=== PATIENT | male | born 1955 ===

== ENCOUNTER 2024-10-30 11:17 | Outpatient (AMB) | payer MEDICARE, SELFPAY ==
--- OUTSIDE RECORDS SUMMARY | 2024-10-30 11:22 | XMS_ITS | Clinical Summary ---
Author Organization [facility] Address [address] [place] [address] Care Team Providers Care School Lunch Manager Name Role Phone Mimi Mandel MD Primary Care Provider [phone] Allergies No known active allergies Medications Medication Sig Dispensed Refills Start Date End Date Status predniSONE (DELTASONE) tablet 10 mg Take 10 mg by mouth every morning with breakfast. 0 Active fluticasone-vilantero l (BREO ELLIPTA) 100-25 MCG/INH inhaler 1 inhalation. by Inhaled route daily. 0 Active Multiple Vitamin (MULTI-VITAMIN DAILY PO) Take by mouth daily. 0 Active immune globulin, Human, (GAMMAGARD) 30 GM/300ML SOLN infusion Inject into the vein every 21 days. 0 Active albuterol 108 (90 Base) MCG/ACT inhaler Inhale 2 puffs into the lungs every 6 (six) hours as needed for wheezing. 0 Active valACYclovir (VALTREX) 1000 MG tablet Take 1 tablet (1,000 mg total) by mouth 3 (three) times a day. 21 tablet 0 06/17/2023 Active Active Problems Problem Noted Date Diagnosed Date Anemia 12/16/2019 Leukopenia 12/16/2019 Hypogammaglobulinemia 07/30/2018 Vitiligo 06/10/2017 Mild persistent asthma without complication 10/07 Family History Medical History Relation Name Comments Diabetes Father Cancer Sister Diabetes Sister Relation Name Status Comments Father Sister Social History Tobacco Use Types Packs/Day Years Used Date Smoking Tobacco: Former Cigarettes 1 15 Q uit: 1993 Smokeless Tobacco: Never Alcohol Use Standard Drinks/Week Comments Yes 0 (1 standard drink = 0.6 oz pur e alcohol) Sex and Gender Information Value Date Recorded Sex Assigned at Male 08/01/2022 3:50 PM EDT Gender Identity Male 02/06/2023 10:39 AM EDT Sexual Orientation Straight 02/06/2023 10 :39 AM EDT Job Start Date Occupation Industry Not on file Not on file Not on file Last Filed Vital Signs Vital Sign Reading Time Taken Comments Blood Pressure 137/77 07/03/2023 10:02 AM EDT Pulse 70 07/03/2023 10:02 AM EDT Temperature 36.5 C (97.7 F) 07/03/2023 10:02 AM EDT Respiratory Rate 18 02/06/2023 9:59 AM EDT Oxygen Saturation 100% 07/03/2023 10:02 AM EDT Inhaled Oxygen Concentration - - Weight 71.7 kg (158 lb 1.1 oz) 07/03/2023 10:02 AM EDT Height 172.7 cm (5' 8 ) 06/17/2023 9:00 AM EDT Body Mass Index 24.03 06/17/2023 9:00 AM EDT Plan of Treatment Health Maintenance Due Date Last Done Comments Hepatitis C Screening 1955 Depression Screening 1969 BMI Counseling 09/04/1975 Preventative Health Evaluation 09/04/1975 Colon Cancer Screening (Colonoscopy) 2002 Shingrix-Zoster Vaccine (1 of 2) 09/04/2007 Pneumococcal Vaccine (2 of 2 - PCV) 09/19/2017 09/19/2016 Fall Risk Assessment 2022 COVID-19 Vaccine (3 - season) 2023 08/06/2020, 07/15/2020 Influenza Vaccine (#1) 2024 , 04/13/2019, 04/13/2019, Additional history exists DTap / Tdap / Td (2 - Td or Tdap) 07/30/2028 07/30/2018 RSV Adult > 60+ Yrs or (1 - 1-dose 75+ series) 2032 Hepatitis B Vaccines Aged Out No long er eligible based on patient's age to complete this topic RSV Ped < 20 months Aged Out No longe r eligible based on patient's age to complete this topic Care Teams School Lunch Manager Relationship Specialty Start Date End Date Mimi Mandel MD [address] [place] [id number] PCP - General Internal Medicine 01/04/22
--- OUTSIDE RECORDS SUMMARY | 2024-10-30 11:22 | XMS_ITS | Clinical Summary ---
Author Organization [facility] Address [address] [place] [address] Phone Care Team Providers Care Clinical Audiologist Name Role Phone Lv Basurto MD Primary Care Provider [phone] Allergies No known active allergies Medications amitriptyline (ELAVIL) 10 mg tablet Take 1 tablet (10 mg total) by mouth at bedtime. 12/09/19 24 Active fluticasone propion-salmet Kezia (Wixela Inhub) 100-50 mcg/dose diskus inhaler Inhale 1 puff by mouth 2 (two) times a day. Rinse mouth with water after use to reduce aftertaste and incidence of candidiasis. Do not swallow. 60 each 11 03/27/20 24 025 Active tamsulosin (FLOMAX) 0.4 mg 24 hr capsule Take 1 capsule (0.4 mg total) by mouth at bedtime. 03/08/20 24 Active diclofenac (VOLTAREN) 1 % topical gel Apply 2 gram four times daily to affected joint 100 g 06/24/19 25 Active albuterol HFA (PROAIR HFA ; PROVENTIL HFA ; VENTOLIN HFA) 90 mcg/actuation inhaler Inhale 2 puffs by mouth every 4 (four) hours if needed for wheezing. 6.7 g 3 09/26/19 25 026 Active gabapentin (NEURONTIN) 300 mg capsuleIndicat ions:Bilateral hand pain,Post herpetic neuralgia TAKE 1 CAPSULE BY MOUTH EVERYDAY AT BEDTIME 90 capsule 10/27/19 25 Active gabapentin (NEURONTIN) 300 mg capsuleIndicat ions:Bilateral hand pain,Post herpetic neuralgia Take 1 capsule (300 mg total) by mouth at bedtime. 30 each 09/29/19 25 025 Discontinued Active Problems Problem Noted Date Diagnosed Date Bilateral hand pain 10/07/2024 COPD (chronic obstructive pu lmonary disease) ([facility] V24, [facility] V28) 04/04/2024 BPH (benign prostatic hyperplasia) 04/04/2024 Pneumonia of right lower lobe due to infectious organism 04/04/2024 Anemia 12/16/2019 Hypogammaglobulinemia ([facility] V24) 07/30/2018 Vitiligo 06/10/2017 Mild persistent asthma without complication 10/07 Resolved Problems Problem Noted Date Diagnosed Date Resolved Date Acute respiratory failure wi th hypoxia ([facility] V24, [facility] V28) 04/04/2024 04/08/2024 Encounters Date Type Department Care Team Description 10/29/2024 1:15 PM EDT Treatment [facility] [address] [phone] Shelley Donato OT Bilateral hand pain (Primary Dx) 10/27/2024 1:15 PM EDT Treatment [facility] [address] [place] [phone] Shelley Donato OT Bilateral hand pain (Primary Dx) 10/21/2024 1:15 PM EDT Treatment [facility] [address] [phone] Shelley Donato OT Bilateral hand pain (Primary Dx) 10/19/2024 1:15 PM EDT Treatment [facility] [address] [place] [phone] Shelley Donato OT Bilateral hand pain (Primary Dx) 10/14/2024 3:00 PM EDT Treatment [facility] [address] [place] [phone] Shelley Donato, OT Bilateral hand pain (Primary Dx) 10/07/2024 12:30 PM EDT Evaluation [facility] [address] [place] [phone] Shelley Donato, OT Bilateral hand pain; Arthritis pain, hand; Closed nondisplaced fracture of neck of fifth metacarpal bone of right hand, initial encounter 10/07/2024 Plan of Care Documentation [facility] [address] [place] [phone] 09/28/2024 3:05 PM EDT - 09/28/2024 11:59 PM EDT Hospital Encounter [address] [phone] Bilateral hand pain Discharge Disposition: Home or Self Care 09/28/2024 3:05 PM EDT - 09/28/2024 11:59 PM EDT Hospital Encounter [address] [phone] Right shoulder pain, unspecified chronicity Discharge Disposition: Home or Self Care 09/28/2024 3:00 PM EDT Office Visit Adult Medicine [address] [phone] Alexandra Kay, KELLY Bilateral hand pain (Primary Dx); Right shoulder pain, unspecified chronicity; Post herpetic neuralgia; Arthritis pain, hand; Closed nondisplaced fracture of neck of fifth metacarpal bone of right hand, initial encounter 09/25/2024 2:30 PM EDT [facility] [address] [place] [phone] Sarina Mart MD Mild persistent asthma without complication (Primary Dx); Pneumonia of right lower lobe due to infectious organism; Hypogammaglobulinem ia (CMS/HCC V24) from Last 3 Months Immunizations Name Administration Dates Next Due Pfizer SARS-CoV-2 COVID-19, mRNA, LNP-S, preservative free 08/06/2020,07/15/2020 Surgical History Surgery Date Site/Laterality Comments BYPASS GRAFT Left PROCEDURE: CA AMPUTATION TOE METATARSOPHALANGEAL JOINT; COMMENT: 2nd, traumatic Medical History Medical History Date Comments Asthma DX:Asthma Traumatic amputation of one toe ([facility] V24) DX:Traumatic amputation of o ne toe (HCC); COMMENT: left 2nd digit Anemia 07/09/2018 DX:Anemia; COMME NT: Was f/b hematolgy in past ? dx Vitiligo 07/30/2018 DX:Vitiligo Hypogammaglobulinemia ([facility] V24) 07/30/2018 DX:Hypogammaglobulinemia (HCC) Empyema lung ([facility] V24, [facility] V28) DX:Empyema lung (HCC) Family History Medical History Relation Name Comments Other: colon cancer Aunt Diabetes Brother Diabetes Father CAD, CKD, Hyper tension Arthritis Mother Diabetes Sister CAD, CKD, Hyper tension Mental illness Sister Stomach cancer Sister Diabetes Son 1 Diabetes Son 2 Diabetes Son 3 Colon cancer Uncle Relation Name Status Comments Aunt Brother Alive Father (Age 57) Mother Alive Sister Alive Son 1 Son 2 Son 3 Uncle Social History Tobacco Use Types Packs/Day Years Used Date Smoking Tobacco: Former Cigarettes Q uit: 04/08/1993 Smokeless Tobacco: Never Tobacco Cessation:Counseling Given: Not Answered Alcohol Use Standard Drinks/Week Comments Not Currently 0 (1 standard drink = 0.6 oz pur e alcohol) Interpersonal Safety Answer Date Record ed Physical Abuse 04/04/2024 Verbal Abuse 04/04/2024 Sex and Gender Information Value Date Recorded Sex Assigned at Male 04/03/2024 10:14 PM EST Legal Sex Male 2:14 AM EST Gender Identity Male 01/24/2024 8:01 PM EDT Sexual Orientation Straight 04/03/2024 10 :14 PM EST Obstetrics History Last Filed Vital Signs Vital Sign Reading Time Taken Comments Blood Pressure 129/72 09/28/2024 2:43 PM EDT Pulse 86 09/25/2024 2:46 PM EDT Temperature 36.4 C (97.5 F) 09/28/2024 2:43 PM EDT Respiratory Rate 16 09/28/2024 2:43 PM EDT Oxygen Saturation 99% 09/25/2024 2:46 PM EDT Inhaled Oxygen Concentration - - Weight 75.8 kg (167 lb) 09/28/2024 2:43 PM EDT Height 172.7 cm (5' 8 ) 09/28/2024 2:43 PM EDT Body Mass Index 25.39 09/28/2024 2:43 PM EDT Plan of Treatment Upcoming Encounters Date Type Department Care Team (Late st Contact Info) Description 11/02/2024 1:15 PM EDT Treatment [facility] [address] [phone] Shelley Donato, OT 11/05/2024 1:15 PM EDT Treatment [facility] [address] [phone] Shelley Donato, OT 11/09/2024 10:00 AM EDT Office Visit [facility] H[facility] Oncology [address] [place] [phone] Maia Cole MD [address] [place] [address] 01/05/2025 3:30 PM EDT Office Visit Adult Medicine [address] [phone] Lv Basurto MD [address] [place] [phone] 03/29/2025 2:15 PM EST [facility] [address] [phone] Sarina Mart MD [address] [phone] Health Maintenance Due Date Last Done Comments Zoster Vaccines (1 of 2) 09/04/2007 RSV Immunization Adult Patients (1 - Risk 60-74 years 1-dose series) 2017 Pneumococcal Vaccine: 50+ Years (2 of 2 - PCV) 09/19/2017 09/19/2016, 06/19/2010 Abdominal Aortic Aneurysm (AAA) Screen 03/17/2022 Cholesterol Screening (Lipid Panel) 03/17/2022 Colorectal Cancer Screening: Colonoscopy 03/17/2022 Hepatitis C Screening 03/17/2022 Medicare Annual Wellness Visit 03/17/2022 Social Influencers of Health Screening 03/17/2022 COVID-19 Vaccine ( season) 2023 02/28/2021, 08/06/2020, 07/15/2020 Depression Screening 04/08/2024 Influenza Vaccine (#1) 2024 , 12/29/2021, 01/06/2020, Additional history exists Falls Risk Assessment 04/08/2025 04/08/2024 DTaP,Tdap,and Td Vaccines (3 - Td or Tdap) 07/30/2028 07/30/2018, 06/19/2010 HIB Vaccines Aged Out No longer eligi ble based on patient's age to complete this topic HPV Vaccines Aged Out No longer eligi ble based on patient's age to complete this topic Hepatitis A Vaccines Aged Out No long er eligible based on patient's age to complete this topic Hepatitis B Vaccines Aged Out No long er eligible based on patient's age to complete this topic IPV Vaccines Aged Out No longer eligi ble based on patient's age to complete this topic MMR Vaccines Aged Out No longer eligi ble based on patient's age to complete this topic Meningococcal ACWY Vaccine Aged Out N o longer eligible based on patient's age to complete this topic Meningococcal B Vaccine Aged Out No l onger eligible based on patient's age to complete this topic RSV Immunization Patients Under 20 months Aged Out No longer eligible based on patient's age to complete this topic Varicella Vaccines Aged Out No longer eligible based on patient's age to complete this topic Goals Goal Patient Goal Type Associated Problems Recent Progress Patient-Stated? Author <enter goal here> General Yes Shelley Donato OT Note: OT PATIENT GOAL REGAIN FUNCTIONAL USE BOTH HANDS TO RESUME HOUSEWORK RESPONSIBILITIES OT STGS 10 TO 12 VISITS General On track(2024 1:33 PM EDT) No Shelley Donato OT Note: # 1 INCORPORATE POSTURAL AWARENESS AND STRETCHING INTO DAILY REGIME TO REPORTS LESS TINGLING AND PAIN AT PALMS # 2 IMPROVE RIGHT WRIST EXTENSION FROM 40 TO 60 DEGREES WITH GOOD STRENGTH TO WEIGHTBEAR # 3 IMPROVE RIGHT THUMB EXTENSION FROM 45 TO 55 DEGREES UPON REACH # 4 ACHIEVE ALL DIGIT FLEXION WITHIN 1.5 CM OF THE DPC # 5 IMPROVE RIGHT PEDIATRIC AUDIOLOGIST FROM 5 TO AT LEAST 25 POUNDS # 6 IMPROVE LEFT WRIST EXTENSION FROM 30 55 DEGREES WITH GOOD STRENGTH TO WEIGHTBEAR # 7 IMPROVE LEFT THUMB EXTENSION FROM 45 TO 55 DEGREES UPON REACH # 8 ACHIEVE ALL LEFT DIGIT FLEXION WITHIN 2 CM OF THE DPC # 9 IMPROVE LEFT PEDIATRIC AUDIOLOGIST FROM 10 TO AT LEAST 25 POUNDS Procedures Procedure Name Priority Date/Time Associated Diagnosis Comments XR HAND 3+ VIEWS BILAT Routine 09/28/2024 3:22 PM EDT Bilateral hand pain XR SHOULDER 2+ VIEWS RIGHT Routine 09/28/2024 3:22 PM EDT Right shoulder pain, unspecified chronicity from Last 3 Months Results * XR Hand 3+ Views bilat (09/28/2024 3:22 PM EDT) Anatomical Region Laterality Modality Upper Extremities, Hand Bilateral [facility] 09/28/2024 5:52 PM EDT Impressions 09/28/2024 5:57 PM EDT 1. No acute fracture or dislocation of the bilateral hands. 2. Severe osteoarthritic changes of the bilateral hands. 3. Chronic right fifth metacarpal head fracture -------- FINAL REPORT -------- Dictated By: Neymar Miranda Dictated Date: 09/28/2024 17:52 ET Assigned Physician: Neymar Miranda Reviewed and Electronically Signed By: Neymar Miranda Signed Date: 09/28/2024 17:57 ET Workstation ID: [id number] Transcribed By: Self Edit Transcribed Date: 09/28/2024 17:52 ET Narrative 09/28/2024 5:57 PM EDT HISTORY: pain TECHNIQUE: 3 views of the bilateral hands COMPARISON: None FINDINGS: Right: No acute fracture or dislocation. There is chronic fracture at the fifth metacarpal head. There is moderate joint space narrowing at the 2-5th DIP joints with subchondral sclerosis and large osteophytes. No significant soft tissue swelling. Left: No acute fracture or dislocation. There is moderate joint space narrowing at the base of thumb, 2-5th DIP joints with subchondral sclerosis and moderate-sized osteophytes. No significant soft tissue swelling. Procedure Note Neymar Miranda MD - 09/28/2024 HISTORY: pain TECHNIQUE: 3 views of the bilateral hands COMPARISON: None FINDINGS: Right: No acute fracture or dislocation. There is chronic fracture at the fifthmetacarpal head. There is moderate joint space narrowing at the 2-5th DIPjoints with subchondral sclerosis and large osteophytes. No significantsoft tissue swelling. Left: No acute fracture or dislocation. There is moderate joint space narrowingat the base of thumb, 2-5th DIP joints with subchondral sclerosis andmoderate-sized osteophytes. No significant soft tissue swelling. IMPRESSION: 1. No acute fracture or dislocation of the bilateral hands. 2. Severe osteoarthritic changes of the bilateral hands. 3. Chronic right fifth metacarpal head fracture -------- FINAL REPORT -------- Dictated By: Neymar Miranda Dictated Date: 09/28/2024 17:52 ET Assigned Physician: Neymar Miranda Reviewed and Electronically Signed By: Neymar Miranda Signed Date: 09/28/2024 17:57 ET Workstation ID: [id number] Transcribed By: Self Edit Transcribed Date: 09/28/2024 17:52 ET us Alexandra Kay [employer] OPERATOR IMG XR PROCEDURES Final Resul t * XR Shoulder 2+ Views Right (09/28/2024 3:22 PM EDT) Anatomical Region Laterality Modality Upper Extremities, Shoulder Right Radi ographic Imaging 09/28/2024 5:59 PM EDT Impressions 09/28/2024 6:01 PM EDT No acute fracture or dislocation of the right shoulder. -------- FINAL REPORT -------- Dictated By: Neymar Miranda Dictated Date: 09/28/2024 17:59 ET Assigned Physician: Neymar Miranda Reviewed and Electronically Signed By: Neymar Miranda Signed Date: 09/28/2024 18:01 ET Workstation ID: [id number] Transcribed By: Self Edit Transcribed Date: 09/28/2024 17:59 ET Narrative 09/28/2024 6:01 PM EDT HISTORY: pain TECHNIQUE: 4 views of the right shoulder COMPARISON: None FINDINGS: No acute fracture or dislocation is seen. There is no evidence of malalignment. Moderate narrowing of the acromioclavicular joint. Procedure Note Neymar Miranda MD - 09/28/2024 HISTORY: pain TECHNIQUE: 4 views of the right shoulder COMPARISON: None FINDINGS: No acute fracture or dislocation is seen. There is no evidence ofmalalignment. Moderate narrowing of the acromioclavicular joint. IMPRESSION: No acute fracture or dislocation of the right shoulder. 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 Do not modify or discontinue any currently active code status orders. * Full Code - Default Date Activated Date Inactivated Comments 04/04/2024 12:35 AM 04/04/2024 2:51 AM This is o rder is used when code status has not been discussed with the patient, or code status is otherwise unknown/unconfirmed To update the patient's code status, place a code status order. Do not modify or discontinue any currently active code status orders. Care Teams Clinical Audiologist Relationship Specialty Start Date End Date Lv Basurto MD [address] [place] [phone] PCP - General Internal Medicine 01/24/24
--- OUTSIDE RECORDS SUMMARY | 2024-10-30 11:22 | XMS_ITS | Patient Health Record ---
Author Organization [facility] Address [address] [place] [address] Care Team Providers Care Network Development Coordinator Name Role Phone MILADIS SIMMONS Unavailable [phone] Allergies No Known Allergies Reason For Referral No Information Medications Medication SIG (Take, Route, Frequency, Duration) Notes Start Date End Date Status Gabapentin 100 MG 2 capsule Orally twi ce daily; Duration: 30 days 06/18/2023 Active Clotrimazole-Betamethasone 1-0.05 % 1 application Externally Twice a day; Duration: 30 days Active Albuterol Sulfate HFA 108 (90 Base) MCG/ACT INHALE 1 PUFF INTO THE LUNGS EVERY 4 HOURS NEEDED FOR 30 DAYS; Duration: 30 Active valACYclovir HCl 500 MG 1 tablet Orally Once a day Active Ibuprofen 600 MG 1 tablet with food o r milk as needed Orally Three times a day Active Trelegy Ellipta 200-62.5-25 MCG/ACT 1 puff Inhalation Once a day; Duration: 30 days Active Immunizations Vaccine Route Administration Date Status Comme nts Influenza, high dose seasonal IM Intramuscular 05/09/2023 Administered Social History Tobacco Use: Social History Observation Description Date Details (start date - stop date) Former Smoker NA - NA Tobacco Use/Smoking Question Answer Notes Are you a former smoker How long has it been since you last smoked? > 10 years Alcohol Screen (Audit-C) Question Answer Notes Did you have a drink contain ing alcohol in the past year? Yes How often did you have a dri nk containing alcohol in the past year? 2 to 4 times a month (2 points) How many drinks did you have on a typical day when you were drinking in the past year? 1 or 2 drinks (0 point) How often did you have 6 or more drinks on one occasion in the past year? Less than monthly (1 point) Points 3 Interpretation Negative Problems Problem Type SNOMED Code ICD Code Onset Dates Problem Status W/U Status Risk Notes Problem Hyperlipidemia (86756819) Hyperlipidemia, unspecified (E78.5) Active confirmed Problem Vitiligo (67869037) Vitiligo (L80) Active confi rmed Problem Hypothyroidism (50422984) Hypothyroidism, unspecified type (E03.9) Active confirmed Problem Vitamin D deficiency (83702575) Vitamin D deficiency (E55.9) Active confirmed Problem Annual health maintenance examination (45725638) Encounter for annual health examination (Z00.00) Active confirmed Problem Leukopenia (58657034) Leukopenia , unspecified type (D72.819) Active confirmed Problem Osteoarthritis of kn ee (400983268) Primary osteoarthritis of left knee (M17.12) Active confirmed Problem Chronic obstructive asthma co-occurrent with acute exacerbation of asthma (disorder) (90401849467762094) Chronic obstructive asthma (J44.9) Active confirmed Problem Hypogammaglobulinemi a (691346460) Hypogammaglobulinemi a (D80.1) Active confirmed Assessments Encounter Date Diagnosis (ICD Code) Assessment Notes Treatment Notes Treatment Clinical Notes Section Notes 11/28/2023 Patient is here for [facility] Chronic conditions are stable MCV is a [...] software and direct typing Please excuse inadvertent folding machine tender or typing errors, or uncorrected word substitutions Although every attempt has been made by the provider to proofread this document, occasional misspellings and typographical errors may still be present Due to the previous pandemic, and the use of personal protective equipment (PPE) This may decrease voice recognition accuracy Inadvertent folding machine tender errors may occur Plan Of Treatment Pending Test Test Name Order Date 25OH VITAMIN D 07/23/2022 25OH VITAMIN D 05/09/2023 CBC (COMPLETE BLOOD COUNT) 05/09/2023 CBC (COMPLETE BLOOD COUNT) 07/23/2022 COMPREHENSIVE METABOLIC PANEL 07/23/2022 COMPREHENSIVE METABOLIC PANEL 05/09/2023 FERRITIN 11/26/2022 HEMOGLOBIN A1C 07/23/2022 HEMOGLOBIN A1C 05/09/2023 IRON & TIBC 11/26/2022 LIPID PANEL 07/23/2022 LIPID PANEL 05/09/2023 PSA, SCREEN 05/09/2023 TRANSFERRIN 11/26/2022 TSH 07/23/2022 TSH 05/09/2023 URINALYSIS W/REFLEX CULTURE 05/09/2023 Chest 2 Views Frontal and Lat 10/12/2021 Chest 2 Views Frontal and Lat 11/26/2022 COMPLETE URINALYSIS 07/23/2022 Future Test Test Name Order Date 25OH VITAMIN D 11/09/2021 CBC (COMPLETE BLOOD COUNT) WITH DIFF 07/2021 COMPREHENSIVE METABOLIC PANEL 11/09/2021 HEMOGLOBIN A1C 11/09/2021 LIPID PANEL 11/09/2021 TSH WITH REFLEX TO FT4 11/09/2021 URINALYSIS W/REFLEX CULTURE 11/09/2021 Insurance Providers Payer Name Payer Address Payer Phone Subscriber Number Group Number Insured Name Patient Relationship to Insured Coverage Start Date Coverage End Date Medicare Part B J14 [address] [place] [id number] Magdaleno Pritchard Self - patient is the insured 3 Medical (General) History Medical History History ICD Code asthma Surgical History Surgery Date(Month/Year) Lung Repair 2019 Hospitalization History Reason Date(Month/Year) D/C Daniela re: 05/2022 discharged for Lung issues August 2021 pneumonia 2021
--- OUTSIDE RECORDS SUMMARY | 2024-10-30 11:22 | XMS_ITS | Clinical Summary ---
Author Organization [facility] Address [address] [place] [address] Phone Care Team Providers Care Cook Fishing Vessel Name Role Phone Pcp, Unknown Primary Care Provider Unavailabl e Social History Tobacco Use Types Packs/Day Years Used Date Smoking Tobacco: Never Assessed Sex and Gender Information Value Date Recorded Sex Assigned at Not on file Legal Sex Male 2:21 PM EDT Gender Identity Not on file Sexual Orientation Not on file Plan of Treatment Health Maintenance Due Date Last Done Comments LIPID PANEL 1957 DEPRESSION SCREENING 1969 HEPATITIS C SCREENING 09/04/1975 ZOSTER VACCINES (1 of 2) 09/04/2007 PNEUMOCOCCAL VACCINES (50+ years) (2 of 2 - PCV) 09/19/2017 09/19/2016, 06/19/2010 COVID-19 VACCINE ( - 2023-2 5 season) 2023 02/28/2021, 08/06/2020, 07/15/2020 Adult Td,Tdap Booster 07/30/2028 07/30/2018 , 06/19/2010 RSV VACCINE (1 - 1-dose 75+ series) 2032 COLORECTAL CANCER SCREENING Completed HEPATITIS A VACCINES Aged Out No long er eligible based on patient's age to complete this topic HIB VACCINES Aged Out No longer eligi ble based on patient's age to complete this topic MENINGOCOCCAL VACCINES (ACWY) Aged Out No longer eligible based on patient's age to complete this topic MENINGOCOCCAL VACCINES (B) Aged Out N o longer eligible based on patient's age to complete this topic Medical Devices Not on file Insurance [employer] [facility] Care Teams Cook Fishing Vessel Relationship Specialty Start Date End Date Pcp, Unknown PCP - General 01/25/23 Additional Source Comments The information contained in this document represents components of the legal health record. It is not the complete legal health record.[facility]
--- OUTSIDE RECORDS SUMMARY | 2024-10-30 11:22 | XMS_ITS | Clinical Summary ---
Author Organization [facility] Address [address] [place] [address] Care Team Providers Care Air Quality Instrument Specialist Name Role Phone Unavailable Primary Care Provider Unavailabl e Source Comments PLEASE NOTE, if this patient is a minor, it may be UNLAWFUL to discuss sensitive information that is contained in these records (such as FAMILY PLANNING, MENTAL HEALTH or SUBSTANCE ABUSE) with the minor patient's parent or other person without the patient's specific authorization.[facility] Allergies No known active allergies Medications nebulizer accessoriesIndic ations:Mild intermittent asthma without complication ([facility]) Dx:J45.20 1 Device 0 6 Active nebulizer and compressorIndica tions:Mild intermittent asthma without complication ([facility]) Dx:J45.20 1 Each 0 6 Active mometasone-formo terol (DULERA) 100-5 mcg/actuation inhalerIndicatio ns:Asthma-COPD overlap syndrome ([facility]) Inhale 2 Puffs into the lungs 2 (two) times daily Do not exceed 2 puffs twice daily. 1 Inhaler 5 8 Active albuterol sulfate 90 mcg/actuation inhalerIndicatio ns:acute asthma attack Inhale 2 Puffs into the lungs every 4 (four) hours as needed for shortness of breath or wheezing 18 g 11 8 Active ipratropium-albu terol (DUONEB) 0.5 mg-3 mg(2.5 mg base)/3 mL nebulizer solutionIndicati ons:Asthma-COPD overlap syndrome ([facility]) Take 3 mL by nebulization 4 (four) times daily 90 mL 11 8 Active loratadine (CLARITIN) 10 mg tabletIndication s:Seasonal allergies Take 1 Tab by mouth once daily as needed for allergies 30 Tab 3 8 Active carbamide peroxide (DEBROX) 6.5 % otic solutionIndicati ons:Bilateral impacted cerumen Place 5 Drops into both ears 2 (two) times daily 15 mL 8 Active fluticasone-salm eterol (ADVAIR) 250-50 mcg/dose diskus inhalerIndicatio ns:Asthma-COPD overlap syndrome ([facility]) Inhale 1 Puff into the lungs 2 (two) times daily 60 Each 2 8 Active predniSONE (DELTASONE) 20 mg tabletIndication s:Moderate persistent asthma with exacerbation ([facility]),Acute bronchitis, unspecified organism Take 1 Tab by mouth once daily 4 Tab 8 Active azithromycin (ZITHROMAX Z-SERENA) 250 mg tabletIndication s:Moderate persistent asthma with exacerbation ([facility]),Acute bronchitis, unspecified organism Take 2 today then 1 daily for 4 days dispense 6 tablets 6 Tab 8 Active Active Problems Problem Noted Date Diagnosed Date Vitiligo 06/10/2017 Urine frequency 06/10/2017 Hematologic disorder. Follow s with hemat. unclear dx. no treatment just observation 02/22/2016 Bronchitis, not specified as acute or chronic History of smoking 10-25 pack years 02/22/2016 Mild persistent asthma without complication ([facility]) 10/26/2015 Resolved Problems Problem Noted Date Diagnosed Date Resolved Date Asthma-COPD overlap syndrome ([facility]) 6 10/26/2015 Immunizations Immunization Administration Dates Next Due Flu, Preservative Free 06/10/2017 PNEUMOCOCCAL POLYSACCHARIDE PPV23 (Pneumovax 23) 09/19/2016 Family History Medical History Relation Name Comments Diabetes Daughter Diabetes Father Heart Problems Father Hypertension Father Kidney disease Father Hypertension Mother Cancer Other cousin colon Cancer Paternal Aunt colon ca in ol d age Diabetes Sister Heart Problems Sister Hypertension Sister Kidney disease Sister Diabetes Son 1 Hypertension Son 2 Relation Name Status Comments Brother Alive Daughter Alive Father Mother Alive Other cousin Alive Paternal Aunt Alive Sister Alive Son 1 Alive Son 2 Alive Social History Tobacco Use Types Packs/Day Years Used Date Smoking Tobacco: Never Smokeless Tobacco: Never Alcohol Use Standard Drinks/Week Comments No 0 (1 standard drink = 0.6 oz pur e alcohol) Social Connections Answer Date Recorded Social Connections and Isolation 0 11/30/2018 Financial Resource Strain Answer Date R ecorded Financial Resource Strain 0 2018 Stress Answer Date Recorded Stress 0 11/30/2018 Physical Activity Answer Date Recorded Physical Activity 0 11/30/2018 Food Insecurity Answer Date Recorded Food 0 11/30/2018 Transportation Needs Answer Date Record ed Transportation 0 11/30/2018 Housing Stability Answer Date Recorded Housing 0 11/30/2018 Safety and Environment Answer Date Gerald rded Safety 0 11/30/2018 Utilities Answer Date Recorded Utilities 0 11/30/2018 Employment Answer Date Recorded Employment 0 11/30/2018 Sex and Gender Information Value Date Recorded Sex Assigned at Male 05/14/2017 8:01 AM PST Legal Sex Male 7:37 AM PDT Gender Identity Male 05/14/2017 8:01 AM PST Sexual Orientation Straight 06/10/2017 6: 17 AM PST Last Filed Vital Signs Vital Sign Reading Time Taken Comments Blood Pressure 147/78 02/10/2018 10:27 AM EST Pulse 99 02/10/2018 10:27 AM EST Temperature 37.2 C (99 F) 02/10/2018 10:27 AM EST Respiratory Rate 20 02/10/2018 10:27 AM EST Oxygen Saturation 95% 02/10/2018 10:27 AM EST Inhaled Oxygen Concentration - - Weight 86.2 kg (190 lb) 06/10/2017 9:14 AM EST Height 174 cm (5' 8.5 ) 02/22/2016 3:06 PM EST Body Mass Index 28.47 02/22/2016 3:06 PM EST Plan of Treatment Not on file Insurance [facility]
[2024-10-30 11:23] VITALS: BP 131/77; PULSE 94; RESP 18; O2SAT 99; BMI 24.4
--- NOTE | 2024-10-30 11:23 | MHC.OFFVIS ---
Vital Signs 10/30/24 11:23 Height 5 ft 9 in Weight 165 lb BMI 24.4 BP 131/77 Blood Pressure Location Lt brachial Position Sitting Respiration 18 Pulse 94 Pulse Source Pulse Oximeter Pulse Oximetry (%) 99 Oxygen Delivery Method Room Air Intake Visit Reasons: Bilateral hand pain Online Marketing Director Required: Yes Online Marketing Director Name: family Allergies No Known Allergies Allergy (Verified 10/30/24 11:22) HPI Comments Details: The patient is a 69-year-old male presenting with bilateral hand pain. The pain began more than a month ago and is described as stabbing, tingling in nature, affecting all fingers and preventing the patient from closing his hands fully. The pain is persistent throughout the day and night, with increased severity at night, disrupting sleep. Denies neck pain. Despite physical and occupational therapy, the pain persists, and previous medications such as gabapentin and amitriptyline have not provided relief. Patient tried wrist bracing at night but the pain was worse. The patient has been advised to restart amitriptyline and is currently taking gabapentin 300 mg at night. There is a family history of diabetes mellitus, although the patient denies having diabetes himself. The patient also has a long-standing history of vitiligo, primarily affecting the hands. - Onset: More than a month ago - Quality: Stabbing pain - Location: Bilateral hands, affecting all fingers - Exacerbating factors: Nighttime, leading to sleep disruption - Relieving factors: None identified - Interference: Difficulty in closing hands, opening cans or bottles - Affect: Pain disrupts sleep and daily activities - Analgesia: Currently taking gabapentin 300 mg at night; previously tried amitriptyline - Adverse Effects: None reported - Activities of Daily Living: Difficulty with hand functions such as opening cans or bottles - Aberrant Drug Related Behaviors: None reported Review of Systems Const Details: - Musculoskeletal: Reports bilateral hand pain - Neurological: Endorses tingling - Dermatological: Reports long-standing vitiligo Physical Exam Exam Exam: General: awake, alert, oriented. Answers questions appropriately. Fully engaged in examination. Skin: warm, dry, intact . Vitiligo. HEENT: Normocephalic. Hearing intact. Cardiac: External chest normal in appearance. Respiratory: No cough, audible wheezing or stridor. Abdomen: without gross distension. MS: Bilateral hands: Swelling that limits the ability to close the hands. Vitiligo to both hands. Tenderness over bilateral wrists. Neurological: Oriented to person, place, time and situation. Thought process intact. No gait abnormalities appreciated. Psychiatric: Appropriate mood and affect. Good judgment and insight. Vital Signs: Last Vital Signs Pulse 94 10/30/24 11:23 Resp 18 10/30/24 11:23 BP 131/77 10/30/24 11:23 Pulse Ox 99 10/30/24 11:23 Oxygen Delivery Method Room Air 10/30/24 11:23 BMI result Body Mass Index 24.4 Assessment & Plan Assessment & Plan (1) Left wrist pain: Code(s): M25.532 - Pain in left wrist Category: Medical (2) Right wrist pain: Code(s): M25.531 - Pain in right wrist Category: Medical (3) Paresthesia of both hands: Code(s): R20.2 - Paresthesia of skin Category: Medical Plan The plan includes ordering a nerve conduction study to confirm the suspected diagnosis of carpal tunnel syndrome. A short course of prednisone is prescribed to reduce swelling and alleviate symptoms. If the prednisone does not provide relief, alternative medications such as Lyrica or duloxetine may be considered. The patient is advised against using additional anti-inflammatory medications while on prednisone to avoid gastrointestinal upset. Follow-up is planned after the nerve conduction study to reassess the condition and adjust the treatment plan as necessary. Patient was informed and verbally consented to the use of an ambient scribe for clinic note documentation during this visit. Orders: Orders NE electromyogram (EMG) Today M25.531 - Pain in right wrist, M25.532 - Pain in left wrist, R20.2 - Paresthesia of skin NE nerve conduction velocity Today M25.531 - Pain in right wrist, M25.532 - Pain in left wrist, R20.2 - Paresthesia of skin Medications: New prednisone Take with food. Take in the morning. 40 mg (2 x 20 mg) PO DAILY 10 tabs 0RF Coding Level of Care Code New Pt Level 4 (76884) Complex EM visit Add On G2211 Diagnoses Left wrist pain M25.532 Right wrist pain M25.531 Paresthesia of both hands R20.2
== END 2024-10-30 12:03 | disposition home or self-care (01) ==
LOC: HO.PMC 11:18
PROVIDERS: PCP Nurse Practitioner Family; Referring Provider Nurse Practitioner Family; Visit Provider Registered Nurse Emergency
DX: M25.532 Pain in left wrist (principal); M25.531 Pain in right wrist; R20.2 Paresthesia of skin
CPT/HCPCS: 99204; G2211

== ENCOUNTER → 2024-10-30 | Outpatient (BNVA) | payer MEDICARE, SELFPAY | PROVIDERS: PCP Nurse Practitioner Family; Referring Provider Nurse Practitioner Family; Visit Provider Registered Nurse Emergency | DX: M25.532 Pain in left wrist (principal); M25.531 Pain in right wrist; R20.2 Paresthesia of skin | CPT/HCPCS: 99202 ==

== ENCOUNTER 2024-11-04 08:37 | Outpatient (REF) | payer MEDICARE, SELFPAY ==
--- OUTSIDE RECORDS SUMMARY | 2024-11-02 13:15 | XMS_ITS | Encounter Summary ---
Author Organization [place] [address] Care Team Providers Care C4 Planner Name Role Phone Lv Basurto MD Primary Care Provider [phone] Reason for Visit * Therapy (Routine) - Authorized Specialty Diagnoses / Procedures Referred By Farhad locke Referred To Contact Occupational Therapy Diagnoses Bilateral hand pain Arthritis pain, hand Closed nondisplaced fracture of neck of fifth metacarpal bone of right hand, initial encounter Alexandra Kay, DIRECTOR SECURITY RISK MANAGEMENT [address] [place] [address] Phone: tel: fax: Referral ID Status Reason Start Date Expiration Date Visits Requested Visits Authorized [id number] Authorized Consult and Treat 09/29/2024 09/29/2025 20 20 Encounter Details Date Type Department Care Team (Late st Contact Info) Description 11/02/2024 1:15 PM EDT Treatment [facility] Occupational Therapy [address] [place] [phone] Shelley Donato, OT Bilateral hand pain (Primary Dx) Social History Tobacco Use Types Packs/Day Years Used Date Smoking Tobacco: Former Cigarettes Q uit: 04/08/1993 Smokeless Tobacco: Never Alcohol Use Standard Drinks/Week Comments Not Currently [...] Orientation Straight 04/03/2024 10 :14 PM EST documented as of this encounter Progress Notes * Shelley Donato, OT - 11/02/2024 1:15 PM EDT Occupational Therapy Occupational Therapy Treatment Patient Name: Magdaleno Sidhu Today's Date: 11/02/2024 Subjective Subjective: BETTER VISIT # 7 BILATERAL HAND PAIN Problem List Patient Active Problem List Diagnosis Anemia Hypogammaglobulinemia ([facility] V24) Mild persistent asthma without complication Vitiligo COPD (chronic obstructive pulmonary disease) ([facility] V24, [facility] V28) BPH (benign prostatic hyperplasia) Pneumonia of right lower lobe due to infectious organism Bilateral hand pain Pain: Pain Assessment Pain Assessment: 0-10 Pain Score: 3 Pain Type: (CRAMPING PRESSURE BOTH HANDS) Objective General Visit Information: General Observation/Findings/Presence Chart Reviewed: Yes Extremity Assessments: Modalities: Ultrasound Ultrasound Location: BOTH DORSAL WRISTS IN COMPOSITE EXTENSION STRETCH Ultrasound Parameters: .4 WCM AT 50 PERCENT PULSED X 7.5 MINS EACH Procedure: Therapeutic Exercise Therapeutic Exercise Activity 1: FLUIDOTHERAPY RIGHT FOR ROM AND STRETCHING X 10 MINS, NERVE GLIDES, FLUIDOTHERAPY LEFT WITH A SOFT BALL FOR CONTRACT RELAX DIGIT FLEXION X 10 MINS, U/S, DRUJ DISTRACTION BOTH WRISTS FOLLOWED BY PROM DIGITS FLEXION, NERVE GLIDES Splinting and Casting: Treatment: SEE ABOVE ADL/IADL Assessment: Assessment/Plan OT Assessment Comments: IMPROVED AROM LEFT DIGIT FLEXION Plan OT Plan: ULTRASOUND AND THERAPEUTIC EXERCISE OT Frequency : (1 TO 2 TIMES A WEEK) Duration: (VISIT # 7) Goals: Goals Addressed This Visit's Progress OT STGS 10 TO 12 VISITS On track # 1 INCORPORATE POSTURAL AWARENESS AND STRETCHING INTO DAILY REGIME TO REPORTS LESS TINGLING AND PAIN AT PALMS # 2 IMPROVE RIGHT WRIST EXTENSION FROM 40 TO 60 DEGREES WITH GOOD STRENGTH TO WEIGHTBEAR # 3 IMPROVE RIGHT THUMB EXTENSION FROM 45 TO 55 DEGREES UPON REACH # 4 ACHIEVE ALL DIGIT FLEXION WITHIN 1.5 CM OF THE DPC # 5 IMPROVE RIGHT VEGETABLE WASHING MACHINE OPERATOR FROM 5 TO AT LEAST 25 POUNDS # 6 IMPROVE LEFT WRIST EXTENSION FROM 30 55 DEGREES WITH GOOD STRENGTH TO WEIGHTBEAR # 7 IMPROVE LEFT THUMB EXTENSION FROM 45 TO 55 DEGREES UPON REACH # 8 ACHIEVE ALL LEFT DIGIT FLEXION WITHIN 2 CM OF THE DPC # 9 IMPROVE LEFT VEGETABLE WASHING MACHINE OPERATOR FROM 10 TO AT LEAST 25 POUNDS documented in this encounter Plan of Treatment Upcoming Encounters Date Type Department Care Team (Late st Contact Info) Description 11/05/2024 1:15 PM EDT Treatment [facility] Occupational Therapy [address] [phone] Shelley Donato OT 11/09/2024 10:00 AM EDT Office Visit [facility] Hematology Oncology [address] [place] [phone] Maia Cole MD [address] [place] [address] 01/05/2025 3:30 PM EDT Office Visit Adult Medicine [facility] [address] [place] [phone] Lv Basurto MD [address] [place] [phone] 03/29/2025 2:15 PM EST [facility] [address] [place] [phone] Sarina Mart MD [address] [phone] documented as of this encounter Goals Goal Patient Goal Type Associated Problems Recent Progress Patient-Stated? Author <enter goal here> General Yes Shelley Donato OT Note: OT PATIENT GOAL REGAIN FUNCTIONAL USE BOTH HANDS TO RESUME HOUSEWORK RESPONSIBILITIES OT STGS 10 TO 12 VISITS General On track(2024 1:26 PM EDT) No Donato, Shelley A, OT Note: # 1 INCORPORATE POSTURAL AWARENESS [...] OF THE DPC # 5 IMPROVE RIGHT VEGETABLE WASHING MACHINE OPERATOR FROM 5 TO AT LEAST 25 POUNDS # 6 IMPROVE LEFT WRIST EXTENSION FROM 30 55 DEGREES WITH GOOD STRENGTH TO WEIGHTBEAR # 7 IMPROVE LEFT THUMB EXTENSION FROM 45 TO 55 DEGREES UPON REACH # 8 ACHIEVE ALL LEFT DIGIT FLEXION WITHIN 2 CM OF THE DPC # 9 IMPROVE LEFT VEGETABLE WASHING MACHINE OPERATOR FROM 10 TO AT LEAST 25 POUNDS documented as of this encounter Visit Diagnoses Diagnosis Bilateral hand pain- Primary documented in this encounter Care Teams C4 Planner Relationship Specialty Start Date End Date Lv Basurto MD [address] [place] [phone] PCP - General Internal Medicine 01/24/24 documented as of this encounter
--- NOTE | 2024-11-04 08:40 | EMG_ITS ---
Chief complaint: 2 months of severe wrist pain and numbness in fingertips. Unable to fully flex 3rd and 4th digits. Noted atrophy of right FDI. Flat right thenar eminence. Reason for referral: Evaluate for Carpal Tunnel Syndrome Referred by: Ila Krueger NP Procedure done: Bilateral upper extremities NCS/EMG Precautions and/or limitations: None The limb temperature was monitored continuously and remained between 32-36 degrees C during the performance of the NCS. Ulnar motor NCS was performed with moderate elbow flexion between 70-90 degrees, with across-elbow distance of 10 cm. Nerve Conduction Studies Anti Sensory Summary Table ?Stim Site NR Onset (ms) Norm Onset (ms) Peak (ms) Norm Peak (ms) O-P Amp (?V) Norm O-P Amp Site1 Site2 Delta-0 (ms) Dist (cm) Robert (m/s) Norm Robert (m/s) Left Median Anti Sensory (2nd Digit) Wrist ? 2.7 3.8 <3.6 13.0 >10 Wrist 2nd Digit 2.7 14.0 52 Right Median Anti Sensory (2nd Digit) Wrist ? 3.3 4.7 <3.6 11.5 >10 Wrist 2nd Digit 3.3 14.0 42 Elbow ? 4.4 6.0 56.1 Elbow Wrist 1.1 0.0 >48 Right Radial Anti Sensory (Thumb) Forearm ? 1.6 2.1 <3.1 17.5 Forearm Thumb 1.6 0.0 Left Ulnar Anti Sensory (5th Digit) Wrist ? 3.0 3.7 <3.7 6.0 >15.0 Wrist 5th Digit 3.0 14.0 47 Right Ulnar Anti Sensory (5th Digit) Wrist ? 2.2 3.2 <3.7 4.0 >15.0 Wrist 5th Digit 2.2 14.0 64 Motor Summary Table ?Stim Site NR Onset (ms) Norm Onset (ms) O-P Amp (mV) Norm O-P Amp iAmp (mV) Amp (1st) (%) Site1 Site2 Delta-0 (ms) Dist (cm) Robert (m/s) Norm Robert (m/s) Left Median Motor (Abd Poll Brev) Wrist NR <3.9 >4.5 Elbow Wrist 0.0 >45 Elbow ? 10.0 1.3 1.3 Right Median Motor (Abd Poll Brev) Wrist ? 5.4 <3.9 1.5 >4.5 1.5 100.0 Elbow Wrist 5.2 22.0 42 >45 Elbow ? 10.6 1.0 0.9 66.7 Left Ulnar Motor (Abd Dig Minimi) Wrist ? 2.7 <3.0 6.0 >5 7.2 100.0 B Elbow Wrist 3.9 22.0 56 >45 B Elbow ? 6.6 5.6 6.7 93.3 A Elbow B Elbow 2.7 10.0 37 >45 A Elbow ? 9.3 5.5 6.5 91.7 Right Ulnar Motor (Abd Dig Minimi) Wrist ? 2.6 <3.0 3.8 >5 4.5 100.0 B Elbow Wrist 4.7 22.0 47 >45 B Elbow ? 7.3 3.5 3.9 92.1 A Elbow B Elbow 2.5 10.0 40 >45 A Elbow ? 9.8 3.3 3.8 86.8 EMG ?Side Muscle Nerve Root Ins Act Fibs Psw Amp Dur Poly Recrt Int Pat Comment Right 1stDorInt Ulnar C8-T1 Incr 1+ 1+ Nml Nml 0 Nml Complete Right Biceps Musculocut C5-6 Nml Nml Nml Nml Nml 0 Nml Complete Right Triceps Radial C6-7-8 Nml Nml Nml Nml Nml 0 Nml Complete Right Deltoid Axillary C5-6 Nml Nml Nml Nml Nml 0 Nml Complete Left 1stDorInt Ulnar C8-T1 Nml Nml Nml Nml Nml 0 Nml Complete Left Biceps Musculocut C5-6 Nml Nml Nml Nml Nml 0 Nml Complete Left Triceps Radial C6-7-8 Nml Nml Nml Nml Nml 0 Nml Complete Left Deltoid Axillary C5-6 Nml Nml Nml Nml Nml 0 Nml Complete Right FlexCarpiUln Ulnar C8,T1 Nml Nml Nml Nml Nml 0 Nml Complete Left FlexCarpiUln Ulnar C8,T1 Nml Nml Nml Nml Nml 0 Nml Complete Paraspinal EMG ?Side Muscle Nerve Root Ins Act Fibs Psw Comment Right Cervical Upper Rami Nml Nml Nml Right Cervical Mid Rami Nml Nml Nml Right Cervical Lower Rami Nml Nml Nml Left Cervical Upper Rami Nml Nml Nml Left Cervical Mid Rami Nml Nml Nml Left Cervical Lower Rami Nml Nml Nml FINDINGS: Right median motor nerve showed prolonged distal latency, small amplitude and slow conduction velocity. Right ulnar motor nerve showed normal distal latency, small amplitude and slow conduction velocity across the elbow. Left median motor nerve showed very small/absent response. Left ulnar motor nerve showed normal distal latency, normal amplitude and slow conduction velocity across the elbow. Bilateral median sensory nerves showed prolonged peak latency. Bilateral ulnar sensory nerves showed normal peak latency but small amplitude. All other nerves tested were within normal. Concentric needle EMG was performed in selected muscles of the bilateral upper extremities. Study revealed signs of electric abnormalities as shown in the table above. Right FDI showed increased insertional activity, PSWs and fibrillations. IMPRESSION: 1. This is an abnormal study. 2. There is electrodiagnostic evidence for bilateral ulnar neuropathy at the elbow. 3. There is electrodiagnostic evidence for bilateral moderate-severe median neuropathy at the wrist, consistent with Carpal Tunnel Syndrome. 4. There is no electrodiagnostic evidence for brachial plexopathy or cervical radiculopathy. Thank you for your kind referral. Mery Cohen MD, NOHEMY Board Certified, [place] Board [employer] and Rehabilitation (ABPMR) Board Certified, [place] Board of Electrodiagnostic Medicine (ABEM) CODIN [phone] MTDD
--- OUTSIDE RECORDS SUMMARY | 2024-11-04 08:50 | XMS_ITS | Clinical Summary ---
Author Organization [facility] Address [address] [place] [address] Care Team Providers Care Paper Supervisor Name Role Phone Unavailable Primary Care Provider [...] nebulizer accessoriesIndic ations:Mild intermittent asthma without complication ([facility]) Dx:J45.20 1 Device 0 6 Active nebulizer and compressorIndica tions:Mild intermittent asthma without complication ([facility]) Dx:J45.20 1 Each 0 6 Active mometasone-formo terol (DULERA) 100-5 mcg/actuation inhalerIndicatio ns:Asthma-COPD overlap syndrome ([facility]) Inhale 2 Puffs into the lungs 2 [...] base)/3 mL nebulizer solutionIndicati ons:Asthma-COPD overlap syndrome ([facility]) Take 3 mL by nebulization 4 [...] 250-50 mcg/dose diskus inhalerIndicatio ns:Asthma-COPD overlap syndrome ([facility]) Inhale 1 Puff into the lungs 2 (two) times daily 60 Each 2 8 Active predniSONE (DELTASONE) 20 mg tabletIndication s:Moderate persistent asthma with exacerbation ([facility]),Acute bronchitis, unspecified organism Take 1 Tab by mouth once daily 4 Tab 8 Active azithromycin (ZITHROMAX Z-SERENA) 250 mg tabletIndication s:Moderate persistent asthma with exacerbation ([facility]),Acute bronchitis, unspecified organism Take 2 today then 1 daily for 4 days dispense 6 tablets 6 Tab 8 Active Active Problems Problem Noted Date Diagnosed Date Vitiligo 06/10/2017 Urine frequency 06/10/2017 Hematologic disorder. Follow s with hemat. unclear dx. no treatment just observation 02/22/2016 Bronchitis, not specified as acute or chronic History of smoking 10-25 pack years 02/22/2016 Mild persistent asthma without complication ([facility]) 10/26/2015 Resolved Problems Problem Noted Date Diagnosed Date Resolved Date Asthma-COPD overlap syndrome ([facility]) 6 10/26/2015 Immunizations Immunization Administration Dates Next [...] Plan of Treatment Not on file Insurance [facility]
--- OUTSIDE RECORDS SUMMARY | 2024-11-04 08:50 | XMS_ITS | Clinical Summary ---
Author Organization [facility] Address [address] [place] [address] Care Team Providers Care Cook Fishing Vessel Name Role Phone Mimi Mandel MD Primary Care Provider [phone] Allergies No known active allergies Medications Medication [...] age to complete this topic Care Teams Cook Fishing Vessel Relationship Specialty Start Date End Date Mimi Mandel MD [address] [place] [phone] PCP - General Internal Medicine 01/04/22
--- OUTSIDE RECORDS SUMMARY | 2024-11-04 08:50 | XMS_ITS | Clinical Summary ---
Author Organization [facility] Address [address] [place] [address] Phone Care Team Providers Care Nurse Practitioner Per Diem Name Role Phone Pcp, Unknown Primary Care [...] Medical Devices Not on file Insurance [employer] [facility] [employer] [facility] [employer] [facility] Care Teams Nurse Practitioner Per Diem Relationship Specialty Start Date End Date Pcp, Unknown PCP - General 01/25/23 Additional Source Comments The information contained in this document represents components of the legal health record. It is not the complete legal health record.[facility]
--- OUTSIDE RECORDS SUMMARY | 2024-11-04 08:50 | XMS_ITS | Patient Health Record ---
Author Organization [facility] Address [address] [place] [address] Care Team Providers Care Industrial Mechanic Name Role Phone MILADIS SIMMONS Unavailable [phone] Allergies No Known Allergies Reason For Referral [...] Status W/U Status Risk Notes Problem Hyperlipidemia (21395207) Hyperlipidemia, unspecified (E78.5) Active confirmed Problem Vitiligo (47270015) Vitiligo (L80) Active confi rmed Problem Hypothyroidism (18248515) Hypothyroidism, unspecified type (E03.9) Active confirmed Problem Vitamin D deficiency (47133591) Vitamin D deficiency (E55.9) Active confirmed Problem Annual health maintenance examination (59458968) Encounter for annual health examination (Z00.00) Active confirmed Problem Leukopenia (37280803) Leukopenia , unspecified type (D72.819) Active confirmed Problem Osteoarthritis of kn ee (016240412) Primary osteoarthritis of left knee (M17.12) Active confirmed Problem Chronic obstructive asthma co-occurrent with acute exacerbation of asthma (disorder) (91664616147424034) Chronic obstructive asthma (J44.9) Active confirmed Problem Hypogammaglobulinemi a (828884730) Hypogammaglobulinemi a (D80.1) Active confirmed Assessments Encounter Date Diagnosis (ICD Code) Assessment Notes Treatment Notes Treatment Clinical Notes Section Notes 11/28/2023 Patient is here for [facility] Chronic conditions are stable MCV is a [...] software and direct typing Please excuse inadvertent senior clinician or typing errors, or uncorrected word substitutions Although every attempt has been made by the provider to proofread this document, occasional misspellings and typographical errors may still be present Due to the previous pandemic, and the use of personal protective equipment (PPE) This may decrease voice recognition accuracy Inadvertent senior clinician errors may occur Plan Of Treatment Pending Test Test Name Order Date 25OH VITAMIN D 05/09/2023 25OH VITAMIN D 07/23/2022 CBC (COMPLETE BLOOD COUNT) 07/23/2022 CBC (COMPLETE BLOOD COUNT) 05/09/2023 COMPREHENSIVE METABOLIC PANEL 05/09/2023 COMPREHENSIVE METABOLIC PANEL 07/23/2022 FERRITIN 11/26/2022 HEMOGLOBIN A1C 05/09/2023 HEMOGLOBIN A1C 07/23/2022 IRON & TIBC 11/26/2022 LIPID PANEL 05/09/2023 LIPID PANEL 07/23/2022 PSA, SCREEN 05/09/2023 TRANSFERRIN 11/26/2022 TSH 05/09/2023 TSH 07/23/2022 URINALYSIS W/REFLEX CULTURE 05/09/2023 Chest 2 Views Frontal and Lat 11/26/2022 Chest 2 Views Frontal and Lat 10/12/2021 COMPLETE URINALYSIS 07/23/2022 Future Test Test Name [...] B J14 [address] [place] [address] [id number] Magdaleno Pritchard Self - patient is the insured 3 Medical (General) History Medical History History ICD Code asthma Surgical History Surgery Date(Month/Year) Lung Repair 2019 Hospitalization History Reason Date(Month/Year) D/C Daniela re: 05/2022 discharged for Lung issues August 2021 pneumonia 2021
== END 2024-11-04 08:38 | disposition home or self-care (01) ==
LOC: HO.NEURO 08:37
PROVIDERS: Visit Provider Registered Nurse Emergency
DX: M25.532 Pain in left wrist (principal); M25.531 Pain in right wrist; R20.2 Paresthesia of skin; R94.131 Abnormal electromyogram [EMG]
CPT/HCPCS: 95886; 95911

== ENCOUNTER → 2024-11-04 08:40 | Outpatient (BNV) | payer MEDICARE, SELFPAY | PROVIDERS: Visit Provider Physical Medicine & Rehabilitation | DX: G56.23 Lesion of ulnar nerve, bilateral upper limbs (principal); G56.03 Carpal tunnel syndrome, bilateral upper limbs | CPT/HCPCS: 95886; 95911 ==

== ENCOUNTER 2024-12-04 12:46 | Outpatient (AMB) | payer MEDICARE, SELFPAY ==
--- NOTE | 2024-12-04 12:50 | MHC.OFFVIS ---
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 Per referring provider, symptoms began over 3 months ago. Pain is described as stabbing, affecting all fingers, preventing him from closing his hands fully. The pain is persistent throughout the day and night, with increased severity at night, disrupting sleep. Has tried prednisone with relief but says this is only a short term prescription. Right greater than left, he would like to discuss surgery. IMPRESSION 11/04/24: 2. There is electrodiagnostic evidence for bilateral ulnar neuropathy at the elbow. 3. 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 Per referring provider, symptoms began over 3 months ago. Numbness is constant, daily, and worse at night. Pain is described as stabbing, affecting all fingers, preventing him from closing his hands fully. The pain is persistent throughout the day and night, with increased severity at night, disrupting sleep. Has tried prednisone with relief but says this is only a short term prescription. Right greater than left, he would like to discuss surgery. IMPRESSION 11/04/24: 2. There is electrodiagnostic evidence for bilateral ulnar neuropathy at the elbow. 3. There is electrodiagnostic evidence for bilateral moderate-severe median neuropathy at the wrist, consistent with Carpal Tunnel Syndrome Review of Systems Const All systems reviewed & are unremarkable except as noted in HPI and below Physical Exam Vital Signs: BMI result Body Mass Index 24.7 Extrem Other: Neuro: Diminished sensation of the tips of all digits of bilateral hands in the office today No thenar or intrinsic wasting. Good APB muscle firing and good finger cross. Vascular: Capillary refill brisk. ROM: Patient is able to get close to making closed fist with bilateral hands, approximately 1-2 cm from the palm with the tips of the digits hands Skin: No lacerations or abrasions noted. General: No ecchymosis. No erythema or evidence of infection. Results Reviewed Results Reviewed: IMPRESSION: 1. This is an abnormal study. 2. There is electrodiagnostic evidence for bilateral ulnar neuropathy at the elbow. 3. There is electrodiagnostic evidence for bilateral moderate-severe median neuropathy at the wrist, consistent with Carpal Tunnel Syndrome. 4. There is no electrodiagnostic evidence for brachial plexopathy or cervical radiculopathy. Thank you for your kind referral. Mery Cohen MD, NOHEMY Assessment & Plan Assessment & Plan (1) Bilateral carpal tunnel syndrome: Code(s): G56.03 - Carpal tunnel syndrome, bilateral upper limbs Category: Medical (2) Cubital tunnel syndrome, bilateral: Code(s): G56.23 - Lesion of ulnar nerve, bilateral upper limbs Category: Medical Plan 1. Right cubital tunnel syndrome 2. Right carpal tunnel syndrome Symptoms constant, daily, worse at night I educated the patient about the condition. I discussed both operative and nonoperative treatment options. The patient would like to proceed with surgery. The risks and benefits of operative treatment were discussed with the patient and the patient wishes to proceed with surgery. These risks include, but are not limited to, risk of damage to blood vessels, nerves, tendons, infection, recurrence, incomplete relief of preoperative symptoms, persistent pain, possible need for further surgery, and the risks associated with regional blocks and/or anesthesia. Patient is also educated on the risk of not getting normal sensation back, as he is experiencing dense numbness preoperatively. Plan is to take the patient to the operating room at some point in the next few weeks for the following procedures: 1. Right cubital tunnel release under general anesthesia 2. Right carpal tunnel release under general anesthesia All of the preoperative paperwork including the consent was discussed today. All of the patient's questions were answered in the clinic today. The patient understands that they will be in contact with our telescope operator to discuss scheduling their procedure. Patient reports that he does have a history of difficulties with asthma as well as a history of pneumothorax, therefore I feel it is best for him to have clearance with his primary care provider prior to anesthesia Patient denies diabetes, blood thinners, asthma, heart issues, kidney issues, or current smoking. 3. Left cubital tunnel syndrome Number for left carpal tunnel syndrome Symptoms constant, daily, worse at night At this time, the patient would like to proceed with operative intervention on the right prior to any intervention of the left Patient is educated that we will need to wait a minimum of 3 months between these 2 procedures due to the need for general anesthesia Patient understands this and is amenable to this plan Coding Level of Care Code New Pt Level 4 (25937) Diagnoses Bilateral carpal tunnel syndrome G56.03 Cubital tunnel syndrome, bilateral G56.23
[2024-12-04 12:52] VITALS: BMI 24.7
--- OUTSIDE RECORDS SUMMARY | 2024-12-04 13:15 | XMS_ITS | Clinical Summary ---
Author Organization [facility] Address [address] [place] [address] Phone Care Team Providers Care Community Service Director Name Role Phone Lv Basurto MD Primary Care Provider [phone] Allergies No known active allergies Medications amitriptyline (ELAVIL) 10 mg tablet Take 1 tablet (10 mg total) by mouth at bedtime. 4 Active fluticasone propion-salmete roL (Wixela Inhub) 100-50 mcg/dose diskus inhaler Inhale 1 puff by mouth 2 (two) times a day. Rinse mouth with water after use to reduce aftertaste and incidence of candidiasis. Do not swallow. 60 each 11 4 03/27/20 25 Active tamsulosin (FLOMAX) 0.4 mg 24 hr capsule Take 1 capsule (0.4 mg total) by mouth at bedtime. 4 Active diclofenac (VOLTAREN) 1 % topical gel Apply 2 gram four times daily to affected joint 100 g 5 Active albuterol HFA (PROAIR HFA ; PROVENTIL HFA ; VENTOLIN HFA) 90 mcg/actuation inhaler Inhale 2 puffs by mouth every 4 (four) hours if needed for wheezing. 6.7 g 3 5 09/26/19 26 Active gabapentin (NEURONTIN) 300 mg capsuleIndicati ons:Bilateral hand pain,Post herpetic neuralgia TAKE 1 CAPSULE BY MOUTH EVERYDAY AT BEDTIME 90 capsule 5 Active Active Problems Problem Noted Date Diagnosed Date Bilateral hand pain 10/07/2024 COPD (chronic obstructive pu lmonary disease) ([facility] V24, [facility] V28) 04/04/2024 BPH (benign prostatic hyperplasia) 04/04/2024 Pneumonia of right lower lobe due to infectious organism 04/04/2024 Anemia 12/16/2019 Hypogammaglobulinemia ([facility] V24) 07/30/2018 Vitiligo 06/10/2017 Mild persistent asthma without complication 10/07 Resolved Problems Problem Noted Date Diagnosed Date Resolved Date Acute respiratory failure wi th hypoxia ([facility] V24, [facility] V28) 04/04/2024 04/08/2024 Encounters Date Type Department Care Team Description 11/09/2024 10:00 AM EDT Office Visit [facility] Hematology Oncology [address] [place] [phone] Maia Cole MD Microcytic anemia (Primary Dx); Hypogammaglobulinem ia ([facility] V24) 11/05/2024 1:15 PM EDT Treatment [facility] Occupational Therapy [address] [phone] Shelley Donato OT Bilateral hand pain (Primary Dx) 11/02/2024 1:15 PM EDT Treatment [facility] Occupational Therapy [address] [place] [phone] Shelley Donato OT Bilateral hand pain (Primary Dx) 10/29/2024 1:15 PM EDT Treatment [facility] Occupational Therapy [address] [phone] Shelley Donato OT Bilateral hand pain (Primary Dx) 10/27/2024 1:15 PM EDT Treatment [facility] Occupational Therapy [address] [phone] Shelley Donato OT Bilateral hand pain (Primary Dx) 10/21/2024 1:15 PM EDT Treatment [facility] Occupational Therapy [address] [phone] Shelley Donato OT Bilateral hand pain (Primary Dx) 10/19/2024 1:15 PM EDT Treatment [facility] Occupational Therapy [address] [phone] Shelley Donato OT Bilateral hand pain (Primary Dx) 10/14/2024 3:00 PM EDT Treatment [facility] Occupational Therapy [address] [phone] Shelley Donato OT Bilateral hand pain (Primary Dx) 10/07/2024 12:30 PM EDT Evaluation [facility] Occupational Therapy [address] [place] [phone] Shelley Donato OT Bilateral hand pain; Arthritis pain, hand; Closed nondisplaced fracture of neck of fifth metacarpal bone of right hand, initial encounter 10/07/2024 Plan of Care Documentation [facility] Occupational Therapy [address] [place] [phone] 09/28/2024 3:05 PM EDT - 09/28/2024 11:59 PM EDT Hospital Encounter [address] [phone] Bilateral hand pain Discharge Disposition: Home or Self Care 09/28/2024 3:05 PM EDT - 09/28/2024 11:59 PM EDT Hospital Encounter [address] [phone] Right shoulder pain, unspecified chronicity Discharge Disposition: Home or Self Care 09/28/2024 3:00 PM EDT Office Visit Adult Medicine [address] [phone] Alexandra Kay, ASSISTANT RESTAURANT GENERAL MANAGER Bilateral hand pain (Primary Dx); Right shoulder pain, unspecified chronicity; Post herpetic neuralgia; Arthritis pain, hand; Closed nondisplaced fracture of neck of fifth metacarpal bone of right hand, initial encounter 09/25/2024 2:30 PM EDT Office Visit Pulmonolgy [address] [place] [phone] Sarina Mart MD Mild persistent asthma without complication (Primary Dx); Pneumonia of right lower lobe due to infectious organism; Hypogammaglobulinem ia ([facility] V24) from Last 3 Months Immunizations Name Administration Dates Next Due Pfizer SARS-CoV-2 COVID-19, mRNA, LNP-S, preservative free 08/06/2020,07/15/2020 Surgical History Surgery Date Site/Laterality Comments BYPASS GRAFT Left PROCEDURE: [place] AMPUTATION TOE METATARSOPHALANGEAL JOINT; COMMENT: 2nd, traumatic Medical History Medical History Date Comments Asthma DX:Asthma Traumatic amputation of one toe ([facility] V24) DX:Traumatic amputation of o ne toe ([facility]); COMMENT: left 2nd digit Anemia 07/09/2018 DX:Anemia; COMME NT: Was f/b hematolgy in past ? dx Vitiligo 07/30/2018 DX:Vitiligo Hypogammaglobulinemia ([facility] V24) 07/30/2018 DX:Hypogammaglobulinemia (HCC) Empyema lung ([facility] V24, [facility] V28) 0 DX:Empyema lung (HCC) Family History Medical History [...] Sign Reading Time Taken Comments Blood Pressure 143/77 11/09/2024 9:56 AM EDT Pulse 92 11/09/2024 9:56 AM EDT Temperature 37 C (98.6 F) 11/09/2024 9:56 AM EDT Respiratory Rate 16 09/28/2024 2:43 PM EDT Oxygen Saturation 97% 11/09/2024 9:56 AM EDT Inhaled Oxygen Concentration - - Weight 77.1 kg (170 lb) 11/09/2024 9:56 AM EDT Height 172.7 cm (5' 8 ) 09/28/2024 2:43 PM EDT Body Mass Index 25.85 09/28/2024 2:43 PM EDT Plan of Treatment Upcoming Encounters Date Type Department Care Team (Late st Contact Info) Description 01/05/2025 3:30 PM EDT Office Visit Adult Medicine [facility] [address] [place] [address] Lv Basurto MD [address] [place] [phone] 03/29/2025 2:15 PM EST Office Visit Pulmonolgy [address] [place] [phone] Sarina Mart MD [address] [place] [phone] Health Maintenance Due Date Last Done Comments [...] Influencers of Health Screening 03/17/2022 COVID-19 Vaccine (4 - 2024-25 season) 2023 02/28/2021, 08/06/2020, 07/15/2020 Depression Screening 04/08/2024 Influenza Vaccine (#1) 2024 2, 12/29/2021, 01/06/2020, Additional history exists Falls Risk [...] Progress Patient-Stated? Author <enter goal here> General On track(2024 2:12 PM EDT) Yes Shelley Donato, OT Note: OT PATIENT GOAL REGAIN FUNCTIONAL USE BOTH HANDS TO RESUME HOUSEWORK RESPONSIBILITIES Procedures Procedure Name Priority Date/Time Associated Diagnosis Comments CBC WITH AUTO DIFFERENTIAL Routine 11/02/2024 10:12 AM EDT Hypogammaglobulinem ia (CMS/HCC V24) Anemia, unspecified type FERRITIN Routine 11/02/2024 10:12 AM EDT Anemia, unspecified IRON AND TIBC Routine 11/02/2024 10:12 AM EDT Anemia, unspecified HAPTOGLOBIN Routine 11/02/2024 10:12 AM EDT Hypogammaglobulinem ia ([facility] V24) Anemia, unspecified type RETICULOCYTE COUNT Routine 11/02/2024 10 :12 AM EDT Hypogammaglobulinem ia ([facility] V24) Anemia, unspecified type HEMOGLOBIN ELECTROPHORESIS Routine 11/02/2024 10:12 AM EDT Hypogammaglobulinem ia ([facility] V24) Anemia, unspecified type CBC AND DIFFERENTIAL Routine 11/02/2024 10:12 AM EDT Hypogammaglobulinem ia ([facility] V24) Anemia, unspecified type XR HAND 3+ VIEWS BILAT Routine 3:22 PM EDT Bilateral hand pain XR SHOULDER 2+ VIEWS RIGHT Routine 09/28/2024 3:22 PM EDT Right shoulder pain, unspecified chronicity from Last 3 Months Results * (ABNORMAL) CBC auto differential (11/02/2024 10:12 AM EDT) [facility] WBC 6.8 4.8 - 10.8 K/mcL LAB HEMETOLOGY METHOD 11/02/2024 12:15 PM EDT [facility] RBC 4.90 4.50 - 5.50 M/mcL LAB HEMETOLOGY METHOD 11/02/2024 12:15 PM EDT [facility] Hemoglobin 11.8(L) 13.5 - 17.5 g/dL LAB HEMETOLOGY METHOD 11/02/2024 12:15 PM EDT [facility] Hematocrit 38.4(L) 42.0 - 54.0 % LAB HEMETOLOGY METHOD 11/02/2024 12:15 PM EDT [facility] MCV 78.9(L) 79.0 - 98.0 FL LAB HEMETOLOGY METHOD 11/02/2024 12:15 PM EDT [facility] MCH 24.2(L) 27.0 - 32.0 pcg LAB HEMETOLOGY METHOD 11/02/2024 12:15 PM EDT [facility] MCHC 30.7(L) 32.0 - 37.0 g/dL LAB HEMETOLOGY METHOD 11/02/2024 12:15 PM EDT [facility] RDW 13.4 11.0 - 15.0 % LAB HEMETOLOGY METHOD 11/02/2024 12:15 PM EDT [facility] Platelets 158 130 - 400 K/mcL LAB HEMETOLOGY METHOD [facility] MPV 10.7 7.0 - 11.0 FL LAB HEMETOLOGY METHOD 11/02/2024 12[facility] NRBC 0.0 <1.0 % LAB HEMETOLOGY METHOD 11/02/2024 12:[facility] NRBC Absolute 0.00 <0.10 K/mcL LAB HEMETOLOGY METHOD 11/02/2024 12:[facility] Neutrophils Relative 80.0 % LAB HEMETOLOGY METHOD 11/02/2024 12:15 PM EDT [facility] Lymphocytes Relative 14.4 % LAB HEMETOLOGY METHOD 11/02/2024 12:15 PM EDT [facility] Monocytes Relative 4.0 % LAB HEMETOLOGY METHOD 11/02/2024 12:15 PM EDT [facility] Eosinophils Relative 0.3 % LAB HEMETOLOGY METHOD 11/02/2024 12:[facility] Basophils Relative 0.1 % LAB HEMETOLOGY METHOD 11/02/2024 12:[facility] Immature Granulocytes Relative 1.2 % LAB HEMETOLOGY METHOD 11/02/2024 12:15 PM EDT [facility] Neutrophils Absolute 5.45 1.50 - 7.00 K/mcL LAB HEMETOLOGY METHOD 11/02/2024 12:15 PM EDT [facility] Lymphocytes Absolute 0.98(L) 1.00 - 5.00 K/mcL LAB HEMETOLOGY METHOD 11/02/2024 12:15 PM EDT [facility] Monocytes Absolute 0.27 0.20 - 1.00 K/mcL LAB HEMETOLOGY METHOD 11/02/2024 12:15 PM EDT [facility] Eosinophils Absolute 0.02 0.00 - 0.50 K/mcL LAB HEMETOLOGY METHOD 11/02/2024 12:15 PM EDT [facility] Basophils Absolute 0.01 0.00 - 0.20 K/mcL LAB HEMETOLOGY METHOD 11/02/2024 12:15 PM EDT [facility] Immature Granulocytes Absolute 0.08(H) 0.00 - 0.03 K/mcL LAB HEMETOLOGY METHOD 11/02/2024 12:15 PM EDT [facility] Blood Venous blood specimen / Unknown Venipuncture / Unknown 11/02/2024 10:12 AM EDT 11/02/2024 11:15 AM EDT us Maia Bebo Cole MD LAB BLOOD ORDERABLES Final R esult [facility] [address] [place] [address], * Hemoglobin electrophoresis (11/02/2024 10:12 AM EDT) Pathologist [facility] Hemoglobin A1 97.6 96.5 - 97.8 % 11/04/2024 12:33 PM EDT [facility] Hemoglobin A2 2.4 2.2 - 3.2 % 11/04/2024 12:33 PM EDT [facility] Hemoglobin F 0.0 <2.0 % 11/04/2024 12:33 PM EDT [facility] Hemoglobin S 0.0 0.0 % 11/04/2024 12:33 PM EDT [facility] Hemoglobin C 0.0 0.0 % 11/04/2024 12:33 PM EDT [facility] Interpretation See Below 11/04/2024 12:33 PM EDT [facility] Comment: No abnormal hemoglobin variants seen on hemoglobin electrophoresis. Test performed at [facility], [address] , [place] [address] Lucy Gifford MD, PhD - Analytical Chemist Blood Venous blood specimen / Unknown Venipuncture / Unknown 11/02/2024 10:12 AM EDT 11/02/2024 11:15 AM EDT us Maia Cole MD LAB BLOOD ORDERABLES Final R esult [facility] [address] [place] [address] * Iron and TIBC (11/02/2024 10:12 AM EDT) Iron 93 50 - 160 mcg/dL LAB CHEMISTRY METHOD 11/02/2024 12:45 PM EDT [facility] TIBC 278 250 - 450 mcg/dL LAB CHEMISTRY METHOD 11/02/2024 12:45 PM EDT [facility] Iron Saturation 33 20 - 50 % LAB CHEMISTRY METHOD 11/02/2024 12:45 PM EDT [facility] Blood Venous blood specimen / Unknown Venipuncture / Unknown 11/02/2024 10:12 AM EDT 11/02/2024 11:14 AM EDT us Maia Cole MD LAB BLOOD ORDERABLES Final R esult [facility] [address] [place] [address], [place] [phone] * (ABNORMAL) Reticulocyte count (11/02/2024 10:12 AM EDT) Retic Ct Abs 0.110(H) 0.030 - 0.090 M/mcL LAB HEMETOLOGY METHOD 11/02/2024 12:15 PM EDT [facility] Retic Ct Pct 2.2(H) 0.7 - 1.7 % LAB HEMETOLOGY METHOD 11/02/2024 12:15 PM EDT [facility] Immature Retic Fract 17.5(H) 2.3 - 15.9 % LAB HEMETOLOGY METHOD 11/02/2024 12:15 PM EDT [facility] Reticulocyte Hemoglobin 25.9(L) >29.0 pcg LAB HEMETOLOGY METHOD 11/02/2024 12:15 PM EDT [facility] Blood Venous blood specimen / Unknown Venipuncture / Unknown 11/02/2024 10:12 AM EDT 11/02/2024 11:15 AM EDT us Maia Cole MD LAB BLOOD ORDERABLES Final R esult [facility] [address] [place] [address], [place] [phone] * Haptoglobin (11/02/2024 10:12 AM EDT) Pathologist [facility] Haptoglobin 80 16 - 200 mg/dL LAB CHEMISTRY METHOD 11/02/2024 12:29 PM EDT [facility] Blood Venous blood specimen / Unknown Venipuncture / Unknown 11/02/2024 10:12 AM EDT 11/02/2024 11:14 AM EDT us Maia Cole MD LAB BLOOD ORDERABLES Final R esult [facility] [address] [place] [address], * Ferritin (11/02/2024 10:12 AM EDT) Ferritin 38 26 - 388 ng/mL LAB CHEMISTRY METHOD 11/02/2024 12:29 PM EDT [facility] Blood Venous blood specimen / Unknown Venipuncture / Unknown 11/02/2024 10:12 AM EDT 11/02/2024 11:14 AM EDT Maia Cole MD LAB BLOOD ORDERABLES Final R esult Performing Organization Address [facility] Co de Phone Number [facility] [address] [place] [address], * XR Hand 3+ Views bilat (09/28/2024 3:22 PM EDT) Anatomical Region Laterality Modality Upper Extremities, Hand Bilateral Radiogra phic Imaging 09/28/2024 5:52 PM EDT Impressions 09/28/2024 [...] Signed Date: 09/28/2024 17:57 ET Workstation ID: [id number] Transcribed By: Self Edit Transcribed Date: 09/28/2024 [...] Signed Date: 09/28/2024 17:57 ET Workstation ID: [id number] Transcribed By: Self Edit Transcribed Date: 09/28/2024 17:52 ET Alexandra Kay ASSISTANT RESTAURANT GENERAL MANAGER IMG XR PROCEDURES Final Resul t * [...] Signed Date: 09/28/2024 18:01 ET Workstation ID: [id number] Transcribed By: Self Edit Transcribed Date: 09/28/2024 [...] Signed Date: 09/28/2024 18:01 ET Workstation ID: [id number] Transcribed By: Self Edit Transcribed Date: 09/28/2024 17:59 ET us Alexandra Kay ASSISTANT RESTAURANT GENERAL MANAGER IMG XR PROCEDURES Final Resul t from Last 3 Months Insurance [employer] MEDICARE Advance Directives Documents on File Type Date Recorded Patient Director Process Engineering Expl anation Health Care Decision (hx) 04/14/2019 [...] currently active code status orders. Care Teams Community Service Director Relationship Specialty Start Date End Date Lv Basurto MD PCP - General Internal Medicine 01/24/24
--- OUTSIDE RECORDS SUMMARY | 2024-12-04 13:15 | XMS_ITS | Clinical Summary ---
Author Organization [facility] Address [address] [place] [address] Care Team Providers Care Strategic Alliances Manager Name Role Phone Mimi Mandel MD Primary Care Provider [phone] Allergies No known active allergies Medications Medication [...] age to complete this topic Care Teams Strategic Alliances Manager Relationship Specialty Start Date End Date Mimi Mandel MD [address] [place] [phone] PCP - General Internal Medicine 01/04/22
--- OUTSIDE RECORDS SUMMARY | 2024-12-04 13:15 | XMS_ITS | Clinical Summary ---
Author Organization [facility] Address [address] [place] [address] Phone Care Team Providers Care Chief Power Dispatcher Name Role Phone Pcp, Unknown Primary Care [...] Medical Devices Not on file Insurance [employer] [facility] Care Teams Chief Power Dispatcher Relationship Specialty Start Date End Date Pcp, Unknown PCP - General 01/25/23 Additional Source Comments The information contained in this document represents components of the legal health record. It is not the complete legal health record.[facility]
--- OUTSIDE RECORDS SUMMARY | 2024-12-04 13:15 | XMS_ITS | Clinical Summary ---
Author Organization [facility] Address [address] [place] [address] Care Team Providers Care Sponge Diver Name Role Phone Unavailable Primary Care Provider [...] nebulizer accessoriesIndic ations:Mild intermittent asthma without complication ([facility]) Dx:J45.20 1 Device 0 6 Active nebulizer and compressorIndica tions:Mild intermittent asthma without complication ([facility]) Dx:J45.20 1 Each 0 6 Active mometasone-formo terol (DULERA) 100-5 mcg/actuation inhalerIndicatio ns:Asthma-COPD overlap syndrome ([facility]) Inhale 2 Puffs into the lungs 2 [...] base)/3 mL nebulizer solutionIndicati ons:Asthma-COPD overlap syndrome ([facility]) Take 3 mL by nebulization 4 (four) [...] 250-50 mcg/dose diskus inhalerIndicatio ns:Asthma-COPD overlap syndrome ([facility]) Inhale 1 Puff into the lungs 2 (two) times daily 60 Each 2 8 Active predniSONE (DELTASONE) 20 mg tabletIndication s:Moderate persistent asthma with exacerbation ([facility]),Acute bronchitis, unspecified organism Take 1 Tab by mouth once daily 4 Tab 8 Active azithromycin (ZITHROMAX Z-SERENA) 250 mg tabletIndication s:Moderate persistent asthma with exacerbation ([facility]),Acute bronchitis, unspecified organism Take 2 today then 1 daily for 4 days dispense 6 tablets 6 Tab 8 Active Active Problems Problem Noted Date Diagnosed Date Vitiligo 06/10/2017 Urine frequency 06/10/2017 Hematologic disorder. Follow s with hemat. unclear dx. no treatment just observation 02/22/2016 Bronchitis, not specified as acute or chronic History of smoking 10-25 pack years 02/22/2016 Mild persistent asthma without complication ([facility]) 10/26/2015 Resolved Problems Problem Noted Date Diagnosed Date Resolved Date Asthma-COPD overlap syndrome ([facility]) 6 10/26/2015 Immunizations Immunization Administration Dates Next [...] Plan of Treatment Not on file Insurance [facility]
== END 2024-12-04 13:19 | disposition home or self-care (01) ==
LOC: HO.HOS 12:46
DX: G56.03 Carpal tunnel syndrome, bilateral upper limbs (principal); G56.23 Lesion of ulnar nerve, bilateral upper limbs
CPT/HCPCS: 99204

== ENCOUNTER → 2024-12-04 12:46 | Outpatient (BNVA) | payer MEDICARE, SELFPAY | DX: G56.03 Carpal tunnel syndrome, bilateral upper limbs (principal); G56.23 Lesion of ulnar nerve, bilateral upper limbs | CPT/HCPCS: 99202 ==

== ENCOUNTER 2025-01-20 14:13 | Outpatient (AMB) | payer MEDICARE, SELFPAY ==
--- OUTSIDE RECORDS SUMMARY | 2023-11-28 10:15 | XMS_ITS ---
Author Organization [facility] [address] Address [address] [place] [address] Care Team Providers Care Plater Barrel Name Role Phone MILADIS SIMMONS Unavailable [phone] REASON FOR VISIT labs Medications Medication SIG (Take, Route, Frequency, Duration) Notes Start Date End Date Status Clotrimazole-Betamethasone 1-0.05 % 1 application Externally Twice a day; Duration: 30 days Active Trelegy Ellipta 200-62.5-25 MCG/ACT 1 puff Inhalation Once a day; Duration: 30 days Active Encounters Encounter Location Date Provider Diagnosis [facility] [address] [place] [id number] 11/28/2023 MILADIS SIMMONS Annual physical exam Z00.00 ; Encounter for screening for other disorder Z13.89 ; Encounter for screening for depression Z13.31 ; Chronic obstructive asthma J44.9 ; Hypogammaglobulinemia D80.1 ; Primary osteoarthritis of left knee M17.12 ; Vitiligo L80 ; Hyperlipidemia, unspecified E78.5 ; Pre-diabetes R73.03 and Iron deficiency E61.1 Assessments Encounter Date Diagnosis (ICD Code) Assessment Notes Treatment Notes Treatment Clinical Notes Section Notes 11/28/2023 Annual physical exam (ICD-10 - Z00.00) Patient is here for MAWV Chronic conditions are stable MCV is a little low at 78.6 Iron studies will be obtained including otal iron, TIBC, and ferritn level, Which were low Patient has beenplaced on iron supplementation in the mean time Of note, some information is being carried forward from prior records for informational purposes only and is being cited so that efficiency, safety and quality of the patient's care is not compromised This note was prepared using voice recognition software and direct typing Please excuse inadvertent inspector scales or typing errors, or uncorrected word substitutions Although every attempt has been made by the provider to proofread this document, occasional misspellings and typographical errors may still be present Due to the previous pandemic, and the use of personal protective equipment (PPE) This may decrease voice recognition accuracy Inadvertent inspector scales errors may occur 11/28/2023 Encounter for screen ing for other disorder (ICD-10 - Z13.89) Patient is here for MAWV Chronic conditions are stable MCV is a little low at 78.6 Iron studies will be obtained including otal iron, TIBC, and ferritn level, Which were low Patient has beenplaced on iron supplementation in the mean time Of note, some information is being carried forward from prior records for informational purposes only and is being cited so that efficiency, safety and quality of the patient's care is not compromised This note was prepared using voice recognition software and direct typing Please excuse inadvertent inspector scales or typing errors, or uncorrected word substitutions Although every attempt has been made by the provider to proofread this document, occasional misspellings and typographical errors may still be present Due to the previous pandemic, and the use of personal protective equipment (PPE) This may decrease voice recognition accuracy Inadvertent inspector scales errors may occur 11/28/2023 Encounter for screen ing for depression (ICD-10 - Z13.31) Patient is here for MAWV Chronic conditions are stable MCV is a little low at 78.6 Iron studies will be obtained including otal iron, TIBC, and ferritn level, Which were low Patient has beenplaced on iron supplementation in the mean time Of note, some information is being carried forward from prior records for informational purposes only and is being cited so that efficiency, safety and quality of the patient's care is not compromised This note was prepared using voice recognition software and direct typing Please excuse inadvertent inspector scales or typing errors, or uncorrected word substitutions Although every attempt has been made by the provider to proofread this document, occasional misspellings and typographical errors may still be present Due to the previous pandemic, and the use of personal protective equipment (PPE) This may decrease voice recognition accuracy Inadvertent inspector scales errors may occur 11/28/2023 Chronic obstructive asthma (ICD-10 - J44.9) Patient is here for MAWV Chronic conditions are stable MCV is a little low at 78.6 Iron studies will be obtained including otal iron, TIBC, and ferritn level, Which were low Patient has beenplaced on iron supplementation in the mean time Of note, some information is being carried forward from prior records for informational purposes only and is being cited so that efficiency, safety and quality of the patient's care is not compromised This note was prepared using voice recognition software and direct typing Please excuse inadvertent inspector scales or typing errors, or uncorrected word substitutions Although every attempt has been made by the provider to proofread this document, occasional misspellings and typographical errors may still be present Due to the previous pandemic, and the use of personal protective equipment (PPE) This may decrease voice recognition accuracy Inadvertent inspector scales errors may occur 11/28/2023 Hypogammaglobulinemi a (ICD-10 - D80.1) Patient is here for MAWV Chronic conditions are stable MCV is a little low at 78.6 Iron studies will be obtained including otal iron, TIBC, and ferritn level, Which were low Patient has beenplaced on iron supplementation in the mean time Of note, some information is being carried forward from prior records for informational purposes only and is being cited so that efficiency, safety and quality of the patient's care is not compromised This note was prepared using voice recognition software and direct typing Please excuse inadvertent inspector scales or typing errors, or uncorrected word substitutions Although every attempt has been made by the provider to proofread this document, occasional misspellings and typographical errors may still be present Due to the previous pandemic, and the use of personal protective equipment (PPE) This may decrease voice recognition accuracy Inadvertent inspector scales errors may occur 11/28/2023 Primary osteoarthrit is of left knee (ICD-10 - M17.12) Patient is here for MAWV Chronic conditions are stable MCV is a little low at 78.6 Iron studies will be obtained including otal iron, TIBC, and ferritn level, Which were low Patient has beenplaced on iron supplementation in the mean time Of note, some information is being carried forward from prior records for informational purposes only and is being cited so that efficiency, safety and quality of the patient's care is not compromised This note was prepared using voice recognition software and direct typing Please excuse inadvertent inspector scales or typing errors, or uncorrected word substitutions Although every attempt has been made by the provider to proofread this document, occasional misspellings and typographical errors may still be present Due to the previous pandemic, and the use of personal protective equipment (PPE) This may decrease voice recognition accuracy Inadvertent inspector scales errors may occur 11/28/2023 Vitiligo (ICD-10 - L80) Patient is here for MAWV Chronic conditions are stable MCV is a little low at 78.6 Iron studies will be obtained including otal iron, TIBC, and ferritn level, Which were low Patient has beenplaced on iron supplementation in the mean time Of note, some information is being carried forward from prior records for informational purposes only and is being cited so that efficiency, safety and quality of the patient's care is not compromised This note was prepared using voice recognition software and direct typing Please excuse inadvertent inspector scales or typing errors, or uncorrected word substitutions Although every attempt has been made by the provider to proofread this document, occasional misspellings and typographical errors may still be present Due to the previous pandemic, and the use of personal protective equipment (PPE) This may decrease voice recognition accuracy Inadvertent inspector scales errors may occur 11/28/2023 Hyperlipidemia, unspecified (ICD-10 - E78.5) Patient is here for MAWV Chronic conditions are stable MCV is a little low at 78.6 Iron studies will be obtained including otal iron, TIBC, and ferritn level, Which were low Patient has beenplaced on iron supplementation in the mean time Of note, some information is being carried forward from prior records for informational purposes only and is being cited so that efficiency, safety and quality of the patient's care is not compromised This note was prepared using voice recognition software and direct typing Please excuse inadvertent inspector scales or typing errors, or uncorrected word substitutions Although every attempt has been made by the provider to proofread this document, occasional misspellings and typographical errors may still be present Due to the previous pandemic, and the use of personal protective equipment (PPE) This may decrease voice recognition accuracy Inadvertent inspector scales errors may occur 11/28/2023 Pre-diabetes (ICD-10 - R73.03) Patient is here for MAWV Chronic conditions are stable MCV is a little low at 78.6 Iron studies will be obtained including otal iron, TIBC, and ferritn level, Which were low Patient has beenplaced on iron supplementation in the mean time Of note, some information is being carried forward from prior records for informational purposes only and is being cited so that efficiency, safety and quality of the patient's care is not compromised This note was prepared using voice recognition software and direct typing Please excuse inadvertent inspector scales or typing errors, or uncorrected word substitutions Although every attempt has been made by the provider to proofread this document, occasional misspellings and typographical errors may still be present Due to the previous pandemic, and the use of personal protective equipment (PPE) This may decrease voice recognition accuracy Inadvertent inspector scales errors may occur 11/28/2023 Iron deficiency (ICD -10 - E61.1) Patient is here for [facility] Chronic conditions are stable MCV is a little low at 78.6 Iron studies will be obtained including otal iron, TIBC, and ferritn level, Which were low Patient has beenplaced on iron supplementation in the mean time Of note, some information is being carried forward from prior records for informational purposes only and is being cited so that efficiency, safety and quality of the patient's care is not compromised This note was prepared using voice recognition software and direct typing Please excuse inadvertent inspector scales or typing errors, or uncorrected word substitutions Although every attempt has been made by the provider to proofread this document, occasional misspellings and typographical errors may still be present Due to the previous pandemic, and the use of personal protective equipment (PPE) This may decrease voice recognition accuracy Inadvertent inspector scales errors may occur Plan Of Treatment Medication Medication Name Sig Start Date Stop Date Notes Clotrimazole-Betamethasone 1-0.05 % 1 application Externally Twice a day; Duration: 30 days Trelegy Ellipta 200-62.5-25 MCG/ACT 1 puff Inhalation Once a day; Duration: 30 days Progress Notes * Magdaleno WRAYDOB:1955 (69 yo M)Acc No.[id number]:11/28/2023 Progress Note Patient: Magdaleno RUTHERFORD Provider: Rojelio SIMMONS NP :[id number] A ge:68 Y S ex:Male Date:11/28/2023 Address:[address] [place] [address] Subjective: * Chief Complaints: * 1 . Labs. * HPI: C onstitutional: Patient is here for a Medicare wellness visit. Complete paperwork was reviewed and updated and has been filed and scan. Age appropriate screening measures reviewed Depression screen completed. Alcohol audit screening completed. Obesity screen completed. Cardiovascular risk stratification screen completed. Cognition assessed Fall risk assessed Discussed healthcare proxy. Discussed [place] order for life sustaining treatment, Comprehensive fasting labs reviewed Patient seen and examined. Full past medical history, social history, family history, allergies and current medications were reviewed and updated. Acute Concerns/Problem List: 11/28/2023 Needs updated labs Did have labs in May 2023 with hematology Patient with a past medical history that includes Chronic obstructive asthma, Arthritis, hypogammaglobulinemia, vitiligo 05/23 he had his first IVIG infusion (Gammagard) and will continue to go every [address] Yu @ infusion center Followed by [facility] Dr. Mart breathing is stable Comprehensive labs are reviewed, 10/2022 Cholesterol 121, LDL 68, triglycerides 126, HDL 32 Electrolytes renal function and LFTs are stable CBC is mostly stable MCV is a little low at 78.6 Low iron studies Platelets are 131 Urinalysis unremarkable Hemoglobin A1c of 5.2 TSH of 0.78 Vitamin D of 74 Acute hospitalizations: He was admitted to [facility] on 05/16/22 with acute hypoxemic respiratory failure CT chest was negative for PE, notable for regions of consolidative opacities, centrilobular nodularity and bronchial wall thickening. Considered a dx of mycobacterial or fungal endotracheal infection. Respiratory panel was unremarkable Lactic acid 1.3 Patient received Zosyn in patient and was transitioned to Augmentin 875/125 for 7 days 40 mg of prednisone daily x8 days Discharged 05/21/22 we did comprehensive reviewing of labs and diagnostics as well as hospital notes as well as medication reconciliation [facility] paperwork, back to full duty as of 06/04/2022 - Presented to the hospital with subjective fevers as well as cough congestion shortness of breath and malaise DX acute hypoxic resp failure, cough, shortness of breath Chest x-ray revealing bilateral lower lobe infiltrates consistent with pneumonia Did have leukocytosis with a white count of 15.8, some LFT elevation and ALK phos of 846 Liver ultrasound was unremarkable Respiratory virus panel detected adenovirus Patient admitted was given steroids intravenously as well as albuterol nebulizer treatments and antipyretics Diagnosed with a viral pneumonia Did have some hypoxia and hypoxic respiratory failure He was weaned off of oxygen and did not require any further supplemental oxygen upon discharge Blood cultures were positive for H. influenzae Sent home on cephalosporin Lactic acid was 2 1 admission and has resolved on discharge We did see him in late March 2022 we did reevaluate him with a chest x-ray which showed complete resolution of Previous multifocal pneumonia back in August admission Health Maintenance Cscope: 2 years ago COVID MRNA: x 3 Flu 2022, 05/2023 Pneumovax:2017 Shingrix:No RSV; discussed. * ROS: A ll Other Systems: Review of Systems (ROS) A ll others negative except those mentioned in HPI. * Medical History: Objective: * Vitals: * Examination: G eneral Examination: GENERAL APPEARANCE: i n no acute distress, well developed, well nourished. H EAD: n ormocephalic, atraumatic. E YES: p upils equal, round, reactive to light and accommodation. E ARS: n ormal. O RAL CAVITY: m ucosa moist. T HROAT: c lear. N JALEEL/THYROID: n jaleel supple, full range of motion, no cervical lymphadenopathy. S KIN: n o suspicious lesions, warm and dry. H EART: n o murmurs, regular rate and rhythm, S1, S2 normal. L UNGS: c lear to auscultation bilaterally. A BDOMEN: n ormal, bowel sounds present, soft, nontender, nondistended. E XTREMITIES: n o clubbing, cyanosis, or edema. N EUROLOGIC: n onfocal, motor strength normal upper and lower extremities, sensory exam intact. Assessment: * Assessment: 1. A nnual physical exam - Z00.00 (Primary) 2 . E ncounter for screening for other disorder - Z13.89 3 . E ncounter for screening for depression - Z13.31? 4. C hronic obstructive asthma - J44.9 5 . H ypogammaglobulinemia - D80.1 6 . P rimary osteoarthritis of left knee - M17.12 7 . V itiligo - L80 8 . H yperlipidemia, unspecified - E78.5 ?9. P re-diabetes - R73.03 1 0. I abner deficiency - E61.1 Patient is here for [facility] Chronic conditions are stable MCV is a little low at 78.6 Iron studies will be obtained including otal iron, TIBC, and ferritn level, Which were low Patient has beenplaced on iron supplementation in the mean time Of note, some information is being carried forward from prior records for informational purposes only and is being cited so that efficiency, safety and quality of the patient's care is not compromised This note was prepared using voice recognition software and direct typing Please excuse inadvertent inspector scales or typing errors, or uncorrected word substitutions Although every attempt has been made by the provider to proofread this document, occasional misspellings and typographical errors may still be present Due to the previous pandemic, and the use of personal protective equipment (PPE) This may decrease voice recognition accuracy Inadvertent inspector scales errors may occur. Plan: * Treatment: * Images: Billing Information: * Visit Code: * Procedure Codes: Care Plan Details* * Electronic signature of KATE SIMMONS on 01/20/2025 at 10:30 AM EDT Sign off status: Pending * Provider: Rojelio SIMMONS NP Date: 0 11/28/2023 Generated for Zohreh wray/Samson/eTransmitting on: 1 10:30 AM EDT History and Physical Notes * HPI (History of Present Illness) Category Sub-Category Detail Notes Category Not es Constitutional Patient is here for a Medicare wellness visit. Complete paperwork was reviewed and updated and has been filed and scan. Age appropriate screening measures reviewed Depression screen completed. Alcohol audit screening completed. Obesity screen completed. Cardiovascular risk stratification screen completed. Cognition assessed Fall risk assessed Discussed healthcare proxy. Discussed [place] order for life sustaining treatment, Comprehensive fasting labs reviewed Patient seen and examined. Full past medical history, social history, family history, allergies and current medications were reviewed and updated. Acute Concerns/Problem List: 11/28/2023 Needs updated labs Did have labs in May 2023 with hematology Patient with a past medical history that includes Chronic obstructive asthma, Arthritis, hypogammaglobulinemia, vitiligo 05/23 he had his first IVIG infusion (Gammagard) and will continue to go every [address] Yu @ infusion center Followed by [facility] Dr. Mart breathing is stable Comprehensive labs are reviewed, 10/2022 Cholesterol 121, LDL 68, triglycerides 126, HDL 32 Electrolytes renal function and LFTs are stable CBC is mostly stable MCV is a little low at 78.6 Low iron studies Platelets are 131 Urinalysis unremarkable Hemoglobin A1c of 5.2 TSH of 0.78 Vitamin D of 74 Acute hospitalizations: He was admitted to [facility] on 05/16/22 with acute hypoxemic respiratory failure CT chest was negative for PE, notable for regions of consolidative opacities, centrilobular nodularity and bronchial wall thickening. Considered a dx of mycobacterial or fungal endotracheal infection. Respiratory panel was unremarkable Lactic acid 1.3 Patient received Zosyn in patient and was transitioned to Augmentin 875/125 for 7 days 40 mg of prednisone daily x8 days Discharged 05/21/22 we did comprehensive reviewing of labs and diagnostics as well as hospital notes as well as medication reconciliation [place] paperwork, back to full duty as of 06/04/2022 - Presented to the hospital with subjective fevers as well as cough congestion shortness of breath and malaise DX acute hypoxic resp failure, cough, shortness of breath Chest x-ray revealing bilateral lower lobe infiltrates consistent with pneumonia Did have leukocytosis with a white count of 15.8, some LFT elevation and ALK phos of 846 Liver ultrasound was unremarkable Respiratory virus panel detected adenovirus Patient admitted was given steroids intravenously as well as albuterol nebulizer treatments and antipyretics Diagnosed with a viral pneumonia Did have some hypoxia and hypoxic respiratory failure He was weaned off of oxygen and did not require any further supplemental oxygen upon discharge Blood cultures were positive for H. influenzae Sent home on cephalosporin Lactic acid was 2 1 admission and has resolved on discharge We did see him in late March 2022 we did reevaluate him with a chest x-ray which showed complete resolution of Previous multifocal pneumonia back in August admission Health Maintenance Cscope: 2 years ago COVID MRNA: x 3 Flu 2022, 05/2023 Pneumovax:2017 Shingrix:No RSV; discussed Examination Category Sub-Category Detail Notes Category Not es General Examination GENERAL APPEARANCE: in no ac lumbee distress, well developed, well nourished HEAD: normocephalic, atrau matic EYES: pupils equal, round, reactive to light and accommodation EARS: normal THROAT: clear NECK/THYROID: neck supple, full ra nge of motion, no cervical lymphadenopathy HEART: no murmurs, regular rate and rhythm, S1, S2 normal LUNGS: clear to auscultatio n bilaterally ABDOMEN: normal, bowel sounds present, soft, nontender, nondistended NEUROLOGIC: nonfocal, motor stre ngth normal upper and lower extremities, sensory exam intact SKIN: no suspicious lesion s, warm and dry EXTREMITIES: no clubbing, cyanosi s, or edema ORAL CAVITY: mucosa moist
--- OUTSIDE RECORDS SUMMARY | 2025-01-20 10:00 | XMS_ITS | Encounter Summary ---
Author Organization [place] [address] Care Team Providers Care Balcony Worker Name Role Phone Lv Basurto MD Primary Care Provider [phone] Reason for Visit * Reason Comments Pre-op Exam Right CTS release Encounter Details Date Type Department Care Team (Late st Contact Info) Description 01/20/2025 10:00 AM EDT Consult Adult Medicine [address] [phone] Lv Basurto MD [address] [place] [address] Preop examination (Primary Dx); Chronic obstructive pulmonary disease, unspecified COPD type (CMS/HCC V24, CMS/HCC V28); Carpal tunnel syndrome, unspecified laterality Social History Tobacco Use Types Packs/Day Years Used Date Smoking Tobacco: Former Cigarettes Q uit: 04/08/1993 Smokeless Tobacco: Never Tobacco Cessation:Counseling Given: Not Answered Alcohol Use Standard Drinks/Week Comments Not Currently 0 (1 standard drink = 0.6 oz pur e alcohol) Interpersonal Safety Answer Date Record ed Physical Abuse Unrecognized value 04/04/2024 Verbal Abuse Unrecognized value 04/04/2024 Sex and Gender Information Value Date Recorded Sex Assigned at Male 04/03/2024 10:14 PM EST Legal Sex Male 2:14 AM EST Gender Identity Male 01/24/2024 8:01 PM EDT Sexual Orientation Straight 04/03/2024 10 :14 PM EST documented as of this encounter Last Filed Vital Signs Vital Sign Reading Time Taken Comments Blood Pressure 108/64 01/20/2025 10:03 AM EDT Pulse 78 01/20/2025 10:03 AM EDT Temperature 36.6 C (97.9 F) 01/20/2025 10:03 AM EDT Respiratory Rate 14 01/20/2025 10:03 AM EDT Oxygen Saturation 97% 01/20/2025 10:03 AM EDT Inhaled Oxygen Concentration - - Weight 76.7 kg (169 lb) 01/20/2025 10:03 AM EDT Height 172.7 cm (5' 8 ) 01/20/2025 10:03 AM EDT Body Mass Index 25.7 01/20/2025 10:03 AM EDT documented in this encounter Progress Notes * Lv Basruto MD - 01/20/2025 10:00 AM EDT Please avoid motrin, Advil ,aleve, ibuprofen , naproxen, aspirin x 10 days prior to surgery Please use (take a puff) of the wixela on the day of surgery and physically take your albuterol to the hospital on the day of surgery Please take medications as prescribed the night prior to surgery On the day of surgery please hold all other medications/supplements * Lv Basurto MD - 01/20/2025 10:00 AM EDT Referring MD: Ca Land MD HPI: Mr. Macho Sidhu is a 69 y.o. year old male who is scheduled for Right cubital and carpal tunnel release on 02/04/2025. He is here today for pre-operative consultation. Her functional status is greater than 4 METs as she can walk for 30 minutes w/o chest pain or significant shortness of breath. He has not had problems with anesthesia or bleeding. Patient with copd /asthma pt on wixela pt needing albuterol bid Patient on gabapentin for pain at night Pt on flomax and elavil at night ROS: GENERAL: Negative for malaise, significant weight loss and fever RESPIRATORY: No cough, wheezing or shortness of breath CARDIOVASCULAR: Negative for chest pain, leg swelling and palpitations PAST MEDICAL HISTORY: Patient Active Problem List Diagnosis Date Noted Bilateral hand pain 10/07/2024 COPD (chronic obstructive pulmonary disease) ([facility] V24, [facility] V28) 04/04/2024 BPH (benign prostatic hyperplasia) 04/04/2024 Pneumonia of right lower lobe due to infectious organism 04/04/2024 Anemia 12/16/2019 Hypogammaglobulinemia ([facility] V24) 07/30/2018 Vitiligo 06/10/2017 Mild persistent asthma without complication 10/26/2015 SOCIAL HISTORY: Social History Tobacco Use Smoking status: Former Current packs/day: 0.00 Types: Cigarettes Quit date: 04/08/1993 Years since quittin.8 Smokeless tobacco: Never Substance Use Topics Alcohol use: Not Currently FAMILY HISTORY: Family Status Relation Name Status Mother Alive Father at age 57 Sister Alive Son (Not Specified) Son (Not Specified) Son (Not Specified) Brother Alive Uncle (Not Specified) Aunt (Not Specified) No partnership data on file Family History[1] ACTIVE MEDICATIONS: Medications Taking[2] ALLERGIES: Patient has no known allergies. PHYSICAL EXAM: There were no vitals taken for this visit. There is no height or weight on file to calculate BMI. APPEARANCE: Alert and in no acute distress EYES: PERRLA, conjunctiva and sclera normal HEART: RRR with normal S1 and S2, no murmurs, no gallops, no JVD appreciated LUNG: clear to auscultation bilaterally EXTREMITIES: Extremities warm and well perfused without clubbing, cyanosis, or edema LABS: Lab Results Component Value Date WBC 6.8 01/05/2025 HGB 11.2 (L) 01/05/2025 HCT 36.7 (L) 01/05/2025 MCV 77.1 (L) 01/05/2025 Lab Results Component Value Date NA 141 01/05/2025 K 3.6 01/05/2025 CO2 25 01/05/2025 CL 108 01/05/2025 BUN 16 01/05/2025 No results found for: INR , PTT Testing:acceptable EKG: RRR NSR no st elevation/depression no q waves. ASSESSMENT AND PLAN: 1. Preop examination 2. Chronic obstructive pulmonary disease, unspecified COPD type (CMS/HCC V24, CMS/HCC V28) 3. Carpal tunnel syndrome, unspecified laterality Cardiac - Mr. Macho Sidhu clinical risk factors include none and male is scheduled for a intermediate risk procedure. His functional capacity is estimated to be greater than 4 METs. He is, therefore, estimated to have an acceptablerisk for the proposed procedure. Further cardiac workup is not warra nted. Beta blockade perioperatively is not needed. Pulmonary - His pulmonary risk factors include age > 50. Early ambulation and use of incentive spirometry, when appropriate, are encouraged. Medications - Pt to hold nsaids 10 days prior to surgery. Patient will use his wixela on the day of surgery and physically take his albuterol with him the the hospital Patient will take his pm meds as scheduled the night prior to surgery Patient will be holding all oral medications/supplements on the day of surgery Please do not hesitate to contact me with any questions or concerns. Thank you for the courtesy of this consultation. Lv Basurto MD on 01/19/2025 at 8:15 AM EDT cc: Ca Land MD [1] Family History Problem Relation Name Age of Onset Arthritis Mother Diabetes Father CAD, CKD, Hypertension Diabetes Sister CAD, CKD, Hypertension Stomach cancer Sister Mental illness Sister Diabetes Son Diabetes Son Diabetes Son Diabetes Brother Colon cancer Uncle Other (Other: colon cancer) Aunt [2] No outpatient medications have been marked as taking for the 01/20/25 encounter (Appointment) with Lv Basurto MD. documented in this encounter Plan of Treatment Upcoming Encounters Date Type Department Care Team (Late st Contact Info) Description 03/29/2025 2:15 PM EST Office Visit Pulmonology - [place] [address] [place] [phone] Sarina Mart MD [address] [place] [address] 04/20/2025 11:00 AM EST Office Visit Adult [facility] [address] [place] [address] Lv Basurto MD [address] [place] [address] documented as of this encounter Goals Goal Patient Goal Type Associated Problems Recent Progress Patient-Stated? Author <enter goal here> General On track(2024 2:12 PM EDT) Yes Shelley Donato, OT Note: OT PATIENT GOAL REGAIN FUNCTIONAL USE BOTH HANDS TO RESUME HOUSEWORK RESPONSIBILITIES documented as of this encounter Visit Diagnoses Diagnosis Preop examination- Primary Unspecified pre-operative examination Chronic obstructive pulmonary disease, unspecified COPD type (CMS/HCC V24, CMS/HCC V28) Carpal tunnel syndrome, unspecified laterality documented in this encounter Care Teams Balcony Worker Relationship Specialty Start Date End Date Lv Basurto MD [address] [place] [address] PCP - General Internal Medicine 01/24/24 documented as of this encounter
--- NOTE | 2025-01-20 14:54 | MHC.OFFVIS ---
Vital Signs 01/20/25 15:06 Height 5 ft 9 in Weight 167 lb BMI 24.7 Handedness Right Intake Visit Reasons: PREOP: right cubital/CTR 02/04/25 AR Intake Note: Magdaleno is a 69 year old ambidextrous male, mainly right hand dominant, who presents today in office for a pre operative visit to discuss his right cubital and right carpal tunnel release scheduled for 02/04/[address] Land. Allergies No Known Allergies Allergy (Verified 01/20/25 15:03) HPI HPI PREOP: right cubital/CTR 02/04/25 AR: Details: Magdaleno is a 69 year old ambidextrous male, mainly right hand dominant, who presents today in office for a pre operative visit to discuss his right cubital and right carpal tunnel release scheduled for 02/04/[address] Land. Patient reports no new medical diagnoses or no new medications since last evaluation. No other acute complaints or concerns at this time. [facility] Medical History (Updated 01/21/25 @ 13:23 by Georgette Kulkarni RN) Hx of immunodeficiency History of amputation of toe (1986) BPH (benign prostatic hyperplasia) Asthma Hx of solitary pulmonary nodule Mild persistent asthma in adult without complication Vitiligo Hypogammaglobulinemia History of pneumonia (04/04/24) Anemia COPD (chronic obstructive pulmonary disease) Bilateral hand pain Surgical History (Updated 01/21/25 @ 13:15 by Georgette Kulkarni RN) Hx of colonoscopy History of lung surgery (04/2019) Social History (Updated 01/21/25 @ 13:18 by Georgette Kulkarni RN) Household Members: Spouse Housing: House Are you a primary technical healthcare consultant to a significant other at home: No Do you presently have visiting nurse or other home services: No 75 years or older and lives alone: No Patient Tobacco Use Status: Former Tobacco user Tobacco use type: Cigarette Smoked in Last 30 Days: No Use of substances other than those prescribed or required for medical reasons: No Advance Directives: No Advance Directives Information Provided: Yes Advance Directives on File: No Healthcare Proxy: No Poor oral hygiene: No (some missing teeth) Review of Systems Const All systems reviewed & are unremarkable except as noted in HPI and below Physical Exam Vital Signs: BMI result Body Mass Index 24.7 Extrem Other: Neuro: Diminished sensation of the tips of all digits of bilateral hands in the office today No thenar or intrinsic wasting. Good APB muscle firing and good finger cross. Vascular: Capillary refill brisk. ROM: Patient is able to get close to making closed fist with bilateral hands, approximately 1-2 cm from the palm with the tips of the digits hands Skin: No lacerations or abrasions noted. General: No ecchymosis. No erythema or evidence of infection. Assessment & Plan Assessment & Plan (1) Bilateral carpal tunnel syndrome: Code(s): G56.03 - Carpal tunnel syndrome, bilateral upper limbs Category: Medical (2) Cubital tunnel syndrome, bilateral: Code(s): G56.23 - Lesion of ulnar nerve, bilateral upper limbs Category: Medical Plan 1. Right cubital tunnel syndrome 2. Right carpal tunnel syndrome Symptoms constant, daily, worse at night I educated the patient about the condition. I discussed both operative and nonoperative treatment options. The patient would like to proceed with surgery. The risks and benefits of operative treatment were discussed with the patient and the patient wishes to proceed with surgery. These risks include, but are not limited to, risk of damage to blood vessels, nerves, tendons, infection, recurrence, incomplete relief of preoperative symptoms, persistent pain, possible need for further surgery, and the risks associated with regional blocks and/or anesthesia. Patient is also educated on the risk of not getting normal sensation back, as he is experiencing dense numbness preoperatively. Plan is to take the patient to the operating room at some point in the next few weeks for the following procedures: 1. Right cubital tunnel release under general anesthesia 2. Right carpal tunnel release under general anesthesia All of the preoperative paperwork including the consent was discussed today. All of the patient's questions were answered in the clinic today. The patient understands that they will be in contact with our anime designer to discuss scheduling their procedure. Patient reports that he does have a history of difficulties with asthma as well as a history of pneumothorax, therefore I feel it is best for him to have clearance with his primary care provider prior to anesthesia Patient denies diabetes, blood thinners, asthma, heart issues, kidney issues, or current smoking. 3. Left cubital tunnel syndrome Number for left carpal tunnel syndrome Symptoms constant, daily, worse at night At this time, the patient would like to proceed with operative intervention on the right prior to any intervention of the left Patient is educated that we will need to wait a minimum of 3 months between these 2 procedures due to the need for general anesthesia Patient understands this and is amenable to this plan Coding Level of Care Code Est Pt Level 4 (36875) Diagnoses Bilateral carpal tunnel syndrome G56.03 Cubital tunnel syndrome, bilateral G56.23
[2025-01-20 15:06] VITALS: BMI 24.7
--- OUTSIDE RECORDS SUMMARY | 2025-01-20 18:00 | XMS_ITS | Clinical Summary ---
Author Organization 175 [facility] Address [address] [place] [address] Phone Care Team Providers Care Resolution Analyst Name Role Phone Lv Basurto MD Primary Care Provider [phone] Allergies No known active allergies Medications amitriptyline (ELAVIL) 10 mg tablet Take 1 tablet (10 mg total) by mouth at bedtime. 4 Active fluticasone propion-salmet Kezia (Wixela Inhub) 100-50 [...] to affected joint 100 g 5 Active gabapentin (NEURONTIN) 300 mg capsuleIndicat ions:Bilateral hand pain,Post herpetic neuralgia TAKE 1 CAPSULE BY MOUTH EVERYDAY AT BEDTIME 90 capsule 5 Active albuterol HFA (PROAIR HFA ; PROVENTIL HFA ; VENTOLIN HFA) 90 mcg/actuation inhaler Inhale 2 puffs by mouth every 4 (four) hours if needed for wheezing. 25.5 g 1 5 01/06/20 26 Active albuterol HFA (PROAIR HFA ; PROVENTIL HFA ; VENTOLIN HFA) 90 mcg/actuation inhaler Inhale 2 puffs by mouth every 4 (four) hours if needed for wheezing. 6.7 g 3 5 01/06/20 25 Discontinu ed(Reorder ) Active Problems Problem Noted Date Diagnosed Date Bilateral hand pain 10/07/2024 COPD (chronic obstructive pu lmonary disease) ([facility] V24, [facility] V28) 04/04/2024 BPH (benign prostatic hyperplasia) 04/04/2024 Pneumonia of right lower lobe due to infectious organism 04/04/2024 Anemia 12/16/2019 Hypogammaglobulinemia ([facility] V24) 07/30/2018 Vitiligo 06/10/2017 Mild persistent asthma without complication 10/07 Resolved Problems Problem Noted Date Diagnosed Date Resolved Date Acute respiratory failure wi th hypoxia ([facility] V24, [facility] V28) 04/04/2024 04/08/2024 Encounters Date Type Department Care Team Description 01/20/2025 10:00 AM EDT Consult Adult Medicine [address] [phone] Lv Basurto MD Preop examination (Primary Dx); Chronic obstructive pulmonary disease, unspecified COPD type ([facility] V24, [facility] V28); Carpal tunnel syndrome, unspecified laterality 01/05/2025 3:30 PM EDT Office Visit Adult Medicine [address] [phone] Lv Basurto MD Chronic obstructive pulmonary disease, unspecified COPD type ([facility] V24, [facility] V28) (Primary Dx); Need for prophylactic vaccination and inoculation against influenza; Screening for malignant neoplasm of prostate; Benign prostatic hyperplasia without lower urinary tract symptoms; Screening, anemia, deficiency, iron; Screening for diabetes mellitus 01/05/2025 Results Follow-Up Adult Medicine [address] [place] [phone] Lv Basurto MD 01/05/2025 Results Follow-Up Adult Medicine [facility] [address] [place] [address] Lv Basurto MD 11/09/2024 10:00 AM EDT Office Visit [facility] Hematology Oncology [address] [place] [phone] Maia Cole MD Microcytic anemia (Primary Dx); Hypogammaglobulinemi a ([facility]/HCC V24) 11/05/2024 1:15 PM EDT Treatment [facility] Occupational [facility] [address] [phone] Shelley Donato OT Bilateral hand pain (Primary Dx) 11/02/2024 1:15 PM EDT Treatment [facility] Occupational [facility] [address] [phone] Shelley Donato OT Bilateral hand pain (Primary Dx) 10/29/2024 1:15 PM EDT Treatment [facility] Occupational Therapy [address] [phone] Shelley Donato OT Bilateral hand pain (Primary Dx) 10/27/2024 1:15 PM EDT Treatment [facility] Occupational [facility] [address] [phone] Shelley Donato OT Bilateral hand pain (Primary Dx) 10/21/2024 1:15 PM EDT Treatment [facility] Occupational Therapy [address] [phone] Shelley Donato OT Bilateral hand pain (Primary Dx) from Last 3 Months Immunizations Immunization Administration Dates Next Due Influenza trivalent, 0.5mL (Fluad) 65yo and olde r 01/05/2025 Pfizer SARS-CoV-2 COVID-19, mRNA, LNP-S, preservative free 08/06/2020,07/15/2020 Surgical History Surgery Date Site/Laterality Comments BYPASS GRAFT Left PROCEDURE: NM AMPUTATION TOE METATARSOPHALANGEAL JOINT; COMMENT: 2nd, traumatic Medical History Medical History Date Comments Asthma DX:Asthma Traumatic amputation of one toe ([facility] V24) DX:Traumatic amputation of o ne toe ([facility]); COMMENT: left 2nd digit Anemia 07/09/2018 DX:Anemia; COMME NT: Was f/b hematolgy in past ? dx Vitiligo 07/30/2018 DX:Vitiligo Hypogammaglobulinemia ([facility] V24) 07/30/2018 DX:Hypogammaglobulinemia (HCC) Empyema lung ([facility] V24, [facility] V28) 0 DX:Empyema lung (HCC) Family History [...] Mass Index 25.7 01/20/2025 10:03 AM EDT Plan of Treatment Upcoming Encounters Date Type Department Care Team (Late st Contact Info) Description 03/29/2025 2:15 PM EST Office Visit Pul[place]ology - [place] [address] [employer] [address] [place] [phone] Sarina Mart MD 175 [facility] [address] [place] [address] 04/20/2025 11:00 AM EST Office Visit Adult Medicine [facility] [address] [place], [place] [phone] Lv Basurto MD [address] [place] [phone] Health Maintenance Due Date Last Done Comments Colorectal Cancer Screening: Colonoscopy 1955 RSV Immunization Adult Patients (1 - Risk 50-74 years 1-dose series) 09/04/2007 Zoster Vaccines (1 of 2) 09/04/2007 Pneumococcal Vaccine: 50+ Years (2 of 2 - PCV) 09/19/2017 09/19/2016, 06/19/2010 Abdominal Aortic Aneurysm (AAA) Screen 03/17/2022 Cholesterol Screening (Lipid Panel) 03/17/2022 Hepatitis C Screening 03/17/2022 Medicare Annual Wellness Visit 03/17/2022 Social Influencers of Health Screening 03/17/2022 Depression Screening 04/08/2024 COVID-19 Vaccine ( season) 2024 02/28/2021, 08/06/2020, 07/15/2020 Falls Risk Assessment 04/08/2025 04/08/2024 DTaP,Tdap,and Td Vaccines (3 - Td or Tdap) 07/30/2028 07/30/2018, 06/19/2010 Influenza Vaccine Completed 01/05/2025, , 12/29/2021, Additional history exists HIB Vaccines Aged Out No longer eligi [...] Diagnosis Comments CBC WITH AUTO DIFFERENTIAL Routine 01/05/2025 4:10 PM EDT Screening, anemia, deficiency, iron PROSTATE SPECIFIC ANTIGEN SCREEN Routine 01/05/2025 4:10 PM EDT Screening for malignant neoplasm of prostate Benign prostatic hyperplasia without lower urinary tract symptoms CBC AND DIFFERENTIAL Routine 01/05/2025 4:10 PM EDT Screening, anemia, deficiency, iron BASIC METABOLIC PANEL Routine 01/05/2025 4:10 PM EDT Screening for diabetes mellitus CBC WITH AUTO DIFFERENTIAL Routine 11/02/2024 10:12 AM EDT Hypogammaglobulinem ia (CMS/HCC V24) Anemia, unspecified type FERRITIN Routine 11/02/2024 10:12 AM EDT Anemia, unspecified IRON AND TIBC Routine 11/02/2024 10:12 AM EDT Anemia, unspecified HAPTOGLOBIN Routine 11/02/2024 10:12 AM EDT Hypogammaglobulinem ia ([facility] V24) Anemia, unspecified type RETICULOCYTE COUNT Routine 11/02/2024 10 :12 AM EDT Hypogammaglobulinem ia ([facility] V24) Anemia, unspecified type HEMOGLOBIN ELECTROPHORESIS Routine 11/02/2024 10:12 AM EDT Hypogammaglobulinem ia ([facility] V24) Anemia, unspecified type CBC AND DIFFERENTIAL Routine 11/02/2024 10:12 AM EDT Hypogammaglobulinem ia ([facility] V24) Anemia, unspecified type from Last 3 Months Results * Prostate specific antigen screen (01/05/2025 4:10 PM EDT) PSA 2.68 0.00 - 4.00 ng/mL LAB CHEMISTRY METHOD 01/05/2025 8:33 PM EDT [facility] Blood Venous blood specimen / Unknown Venipuncture / Unknown 01/05/2025 4:10 PM EDT 01/05/2025 4:10 PM EDT Narrative [facility] - 01/05/2025 8:33 PM EDT The Siemens Advia Centaur Chemiluminescent Immunoassay is used. Results obtained with different assay methods or kits cannot be used interchangeably. Results cannot be interpreted as absolute evidence of the presence or absence of malignant disease. us Lv Basurto MD LAB BLOOD ORDERABLES Final Resu lt [facility] [address] [place] [address], * (ABNORMAL) CBC auto differential (01/05/2025 4:10 PM EDT) Only the most recent of2 resultswithin the time period is included. [facility] WBC 6.8 4.8 - 10.8 K/mcL LAB HEMETOLOGY METHOD 01/05/2025 6:25 PM [facility] RBC 4.80 4.50 - 5.50 M/mcL LAB HEMETOLOGY METHOD 01/05/2025 6:25 PM [facility] Hemoglobin 11.2(L) 13.5 - 17.5 g/dL LAB HEMETOLOGY METHOD 01/05/2025 6:25 PM [facility] Hematocrit 36.7(L) 42.0 - 54.0 % LAB HEMETOLOGY METHOD 01/05/2025 6:25 PM [facility] MCV 77.1(L) 79.0 - 98.0 FL LAB HEMETOLOGY METHOD 01/05/2025 6:25 PM [facility] MCH 23.5(L) 27.0 - 32.0 pcg LAB HEMETOLOGY METHOD 01/05/2025 6:25 PM [facility] MCHC 30.5(L) 32.0 - 37.0 g/dL LAB HEMETOLOGY METHOD 01/05/2025 6:25 PM [facility] RDW 13.7 11.0 - 15.0 % LAB HEMETOLOGY METHOD 01/05/2025 6:25 PM [facility] Platelets 165 130 - 400 K/mcL LAB HEMETOLOGY METHOD 01/05/2025 6:25 PM [facility] MPV 11.0 7.0 - 11.0 FL LAB HEMETOLOGY METHOD 01/05/2025 6:25 PM [facility] NRBC 0.0 <1.0 % LAB HEMETOLOGY METHOD 01/05/2025 6:25 PM [facility] NRBC Absolute 0.00 <0.10 K/mcL LAB HEMETOLOGY METHOD 01/05/2025 6:25 PM EDT [facility] Neutrophils Relative 69.0 % LAB HEMETOLOGY METHOD 01/05/2025 6:25 PM EDT [facility] Lymphocytes Relative 21.3 % LAB HEMETOLOGY METHOD 01/05/2025 6:25 PM EDT [facility] Monocytes Relative 7.7 % LAB HEMETOLOGY METHOD 01/05/2025 6:25 PM EDT [facility] Eosinophils Relative 1.3 % LAB HEMETOLOGY METHOD 01/05/2025 6:25 PM EDT [facility] Basophils Relative 0.3 % LAB HEMETOLOGY METHOD 01/05/2025 6:25 PM [facility] Immature Granulocytes Relative 0.4 % LAB HEMETOLOGY METHOD 01/05/2025 6:25 PM [facility] Neutrophils Absolute 4.66 1.50 - 7.00 K/mcL LAB HEMETOLOGY METHOD [facility]25 [facility] Lymphocytes Absolute 1.44 1.00 - 5.00 K/mcL LAB HEMETOLOGY METHOD 01/05/2025 6:25 PM [facility] Monocytes Absolute 0.52 0.20 - 1.00 K/mcL LAB HEMETOLOGY METHOD [facility]/05[facility]2025 6[facility] Eosinophils Absolute 0.09 0.00 - 0.50 K/mcL LAB HEMETOLOGY METHOD 01/05/2025 6:25 PM EDT [facility] Basophils Absolute 0.02 0.00 - 0.20 K/mcL LAB HEMETOLOGY METHOD 01/05/2025 6:25 PM [facility] Immature Granulocytes Absolute 0.03 0.00 - 0.03 K/mcL LAB HEMETOLOGY METHOD 01/05/2025 6[facility] Blood Venous blood specimen / Unknown Venipuncture / Unknown 01/05/2025 4:10 PM EDT 01/05/2025 4:10 PM EDT us Lv Basurto MD LAB BLOOD ORDERABLES Final Resu lt [facility] [address] [place] [address], [place] [phone] * (ABNORMAL) Basic metabolic panel (01/05/2025 4:10 PM EDT) Sodium 141 133 - 145 mmol/L LAB CHEMISTRY METHOD 01/05/2025 7:30 PM [facility] Potassium 3.6 3.5 - 5.5 mmol/L LAB CHEMISTRY METHOD 01/05/2025 7:30 PM [facility] Chloride 108 96 - 110 mmol/L LAB CHEMISTRY METHOD 01/05/2025 7:30 PM [facility] CO2 25 21 - 32 mmol/L LAB CHEMISTRY METHOD 01/05/2025 7:30 PM [facility] Anion Gap 8 3 - 11 LAB CHEMISTRY METHOD 01/05/2025 7:30 PM [facility] Glucose 106(H) 70 - 100 mg/dL LAB CHEMISTRY METHOD 01/05/2025 7:30 PM [facility] BUN 16 5 - 25 mg/dL LAB CHEMISTRY METHOD 01/05/2025 7:30 PM [facility] Creatinine 0.92 0.70 - 1.30 mg/dL LAB CHEMISTRY METHOD 01/05/2025 7:30 PM [facility] eGFR 91 >=60 mL/min/1. 73m2 LAB CHEMISTRY METHOD 01/05/2025 7:30 PM [facility] Comment:Calculation based on the Chronic Kidney Disease Epidemiology Collaboration (CKD-EPI) equation refit without adjustment for race. BUN/Creatinine Ratio 17.4 LAB CHEMISTRY METHOD 01/05/2025 7:30 PM EDT [facility] Calcium 8.7 8.5 - 10.5 mg/dL LAB CHEMISTRY METHOD 01/05/2025 7:30 PM EDT [facility] Blood Venous blood specimen / Unknown Venipuncture / Unknown 01/05/2025 4:10 PM EDT 01/05/2025 4:10 PM EDT us Lv Basurto MD LAB BLOOD ORDERABLES Final Resu lt [facility] [address] [place] [address], [place] [phone] * Hemoglobin electrophoresis (11/02/2024 10:12 AM EDT) [...] seen on hemoglobin electrophoresis. Test performed at [facility], [address] , [place] [address] Lucy Gifford MD, PhD - Yard General Car Supervisor Blood Venous blood specimen / Unknown Venipuncture / Unknown 11/02/2024 10:12 AM EDT 11/02/2024 11:15 AM EDT us Maia Cole MD LAB BLOOD ORDERABLES Final R esult [facility] [address] [place] [address] * Iron and TIBC (11/02/2024 10:12 AM EDT) Pathologist [facility] Iron 93 50 - 160 mcg/dL LAB [...] 10:12 AM EDT 11/02/2024 11:14 AM EDT [facility] Bebo Cole MD LAB BLOOD ORDERABLES Final R esult [facility] [address] [place] [address], [place] [phone] * (ABNORMAL) Reticulocyte count (11/02/2024 10:12 AM EDT) Pathologist [facility] Retic Ct Abs 0.110(H) 0.030 - 0.090 [...] 10:12 AM EDT 11/02/2024 11:15 AM EDT Maia Cole MD LAB BLOOD ORDERABLES Final R esult Performing Organization Address City/[facility]/ZIP Co de Phone Number [facility] [address] [place] [address], [place] [phone] * Haptoglobin (11/02/2024 10:12 AM EDT) Haptoglobin 80 16 - 200 mg/dL LAB CHEMISTRY METHOD 11/02/2024 12:29 PM EDT [facility] Blood Venous blood specimen / Unknown Venipuncture / Unknown 11/02/2024 10:12 AM EDT 11/02/2024 11:14 AM EDT Maia Cole MD LAB BLOOD ORDERABLES Final R esult Performing Organization Address [facility]/ZIP Co de Phone Number [facility] [address] [place] [address], [place] [phone] * Ferritin (11/02/2024 10:12 AM EDT) Ferritin 38 26 - 388 ng/mL LAB CHEMISTRY METHOD 11/02/2024 12:29 PM EDT [facility] Blood Venous blood specimen / Unknown Venipuncture / Unknown 11/02/2024 10:12 AM EDT 11/02/2024 11:14 AM EDT Maia Cole MD LAB BLOOD ORDERABLES Final R esult [facility] [address] [place] [address], [place] [phone] from Last 3 Months Insurance [employer] Advance Directives Documents on File Type Date Recorded Patient Tire Service Supervisor Expl anation Health Care Decision (hx) 04/14/2019 [...] currently active code status orders. Care Teams Resolution Analyst Relationship Specialty Start Date End Date Lv Basurto MD [address] [place] [phone] PCP - General Internal Medicine 01/24/24
--- OUTSIDE RECORDS SUMMARY | 2025-01-20 18:00 | XMS_ITS | Patient Health Record ---
Author Organization [facility] Address [address] [place] [address] Care Team Providers Care Calendering Machine Operator Name Role Phone MILADIS SIMMONS Unavailable [phone] Allergies No Known Allergies Reason For Referral [...] Status W/U Status Risk Notes Problem Hyperlipidemia (76951980) Hyperlipidemia, unspecified (E78.5) Active confirmed Problem Vitiligo (43261689) Vitiligo (L80) Active confi rmed Problem Hypothyroidism (83053693) Hypothyroidism, unspecified type (E03.9) Active confirmed Problem Vitamin D deficiency (18521499) Vitamin D deficiency (E55.9) Active confirmed Problem Annual health maintenance examination (45650361) Encounter for annual health examination (Z00.00) Active confirmed Problem Leukopenia (11774811) Leukopenia , unspecified type (D72.819) Active confirmed Problem Osteoarthritis of kn ee (896403615) Primary osteoarthritis of left knee (M17.12) Active confirmed Problem Chronic obstructive asthma co-occurrent with acute exacerbation of asthma (disorder) (08310912459274183) Chronic obstructive asthma (J44.9) Active confirmed Problem Hypogammaglobulinemi a (464740765) Hypogammaglobulinemi a (D80.1) Active confirmed Plan Of [...] J14 [address] [place] [address] [id number] Magdaleno Pritchard Self - patient is the insured 3 Medical (General) History Medical History History ICD Code asthma Surgical History Surgery Date(Month/Year) Lung Repair 2019 Hospitalization History Reason Date(Month/Year) D/C Daniela re: 05/2022 discharged for Lung issues August 2021 pneumonia 2021
--- OUTSIDE RECORDS SUMMARY | 2025-01-20 18:00 | XMS_ITS | Clinical Summary ---
Author Organization [facility] Address [address] [place], [place] [id number] Phone Care Team Providers Care Radiation Protection Technician Name Role Phone Pcp, Unknown Primary Care [...] of 2 - PCV) 09/19/2017 09/19/2016, 06/19/2010 INFLUENZA VACCINE (#1) 2024 , 12/29/2021, 01/06/2020, Additional history exists COVID-19 VACCINE ( season) 2024 02/28/2021, 08/06/2020, 07/15/2020 Adult Td,Tdap Booster 07/30/2028 07/30/2018, 011 RSV VACCINE (1 - 1-dose 75+ series) [...] topic Medical Devices Not on file Insurance [facility] Care Teams Radiation Protection Technician Relationship Specialty Start Date End Date Pcp, Unknown PCP - General 01/25/23 Additional Source Comments The information contained in this document represents components of the legal health record. It is not the complete legal health record.[facility]
--- OUTSIDE RECORDS SUMMARY | 2025-01-20 18:00 | XMS_ITS | Encounter Summary ---
Author Organization [place] [address] Care Team Providers Care Digital Circuit Designer Name Role Phone Lv Basurto MD Primary Care Provider [phone] Encounter Details Date Type Department Care Team (Late st Contact Info) Description 01/05/2025 Results Follow-Up Adult Medicine [address] [phone] Lv Basurto MD [address] [place] [address] Social History Tobacco Use Types Packs/Day Years [...] PM EST documented as of this encounter Plan of Treatment Upcoming Encounters Date Type Department Care Team (Late st Contact Info) Description 03/29/2025 2:15 PM EST Office Visit Pulmonology - [place] 175 [facility] [address] [place] [address] Sarina Mrat MD 175 [facility] [address] [place] [address] 04/20/2025 11:00 AM EST Office Visit Adult Medicine [address] [phone] Lv Basurto MD [address] [place] [address] documented as of this encounter Goals Goal Patient Goal Type Associated Problems Recent Progress Patient-Stated? Author <enter goal here> General On track(2024 2:12 PM EDT) Yes Shelley Donato, OT Note: OT PATIENT GOAL REGAIN FUNCTIONAL USE BOTH HANDS TO RESUME HOUSEWORK RESPONSIBILITIES documented as of this encounter Visit Diagnoses Not on filedocumented in this encounter Care Teams Digital Circuit Designer Relationship Specialty Start Date End Date Lv Basurto MD [address] [place] [address] PCP - General Internal Medicine 01/24/24 documented as of this encounter
--- OUTSIDE RECORDS SUMMARY | 2025-01-20 18:00 | XMS_ITS | Encounter Summary ---
Author Organization [place] [address] Care Team Providers Care Diabetes Physician Name Role Phone Lv Basurto MD Primary Care Provider [phone] Encounter Details Date Type Department Care Team (Late st Contact Info) Description 01/05/2025 Results Follow-Up Adult Medicine [address] [phone] Lv Basurto MD [address] [place] [address] Social History Tobacco Use Types Packs/Day Years [...] 2:15 PM EST Office Visit Pulmonology - [place] 175 [facility] [address] [place] [address] Sarina Mart MD 175 [facility] [address] [place] [address] 04/20/2025 11:00 AM EST Office Visit Adult Medicine [address] [phone] Lv Basurto MD [address] [place] [address] documented as of this encounter Goals Goal Patient Goal Type Associated Problems Recent Progress Patient-Stated? Author <enter goal here> General On track(2024 2:12 PM EDT) Yes Shelley Donato, OT Note: OT PATIENT GOAL REGAIN FUNCTIONAL USE BOTH HANDS TO RESUME HOUSEWORK RESPONSIBILITIES documented as of this encounter Visit Diagnoses Not on filedocumented in this encounter Care Teams Diabetes Physician Relationship Specialty Start Date End Date Lv Basurto MD [address] [place] [address] PCP - General Internal Medicine 01/24/24 documented as of this encounter
--- OUTSIDE RECORDS SUMMARY | 2025-01-20 18:00 | XMS_ITS | Clinical Summary ---
Author Organization [facility] Address [address] [place] [address] Care Team Providers Care Health Management Consultant Name Role Phone Mimi Mandel MD Primary Care Provider Allergies No known active allergies Medications Medication [...] age to complete this topic Care Teams Health Management Consultant Relationship Specialty Start Date End Date Mimi Mandel MD [address] [place] [id number] PCP - General Internal Medicine 01/04/22
--- OUTSIDE RECORDS SUMMARY | 2025-01-20 18:00 | XMS_ITS | Clinical Summary ---
Author Organization [facility] Address [address] [place] [address] Care Team Providers Care Packing Machine Can Feeder Name Role Phone Unavailable Primary Care Provider [...] nebulizer accessoriesIndic ations:Mild intermittent asthma without complication Dx:J45.20 1 Device 0 6 Active nebulizer and compressorIndica tions:Mild intermittent asthma without complication Dx:J45.20 1 Each 0 6 Active mometasone-formo terol (DULERA) 100-5 mcg/actuation inhalerIndicatio ns:Asthma-COPD overlap syndrome Inhale 2 Puffs into the lungs 2 [...] base)/3 mL nebulizer solutionIndicati ons:Asthma-COPD overlap syndrome Take 3 mL by nebulization 4 (four) [...] 250-50 mcg/dose diskus inhalerIndicatio ns:Asthma-COPD overlap syndrome Inhale 1 Puff into the lungs 2 (two) times daily 60 Each 2 8 Active predniSONE (DELTASONE) 20 mg tabletIndication s:Moderate persistent asthma with exacerbation,Acu te bronchitis, unspecified organism Take 1 Tab by mouth once daily 4 Tab 8 Active azithromycin (ZITHROMAX Z-SERENA) 250 mg tabletIndication s:Moderate persistent asthma with exacerbation,Acu te bronchitis, unspecified organism Take 2 today then 1 daily for 4 days dispense 6 tablets 6 Tab 8 Active Active Problems Problem Noted Date Diagnosed Date Vitiligo 06/10/2017 Urine frequency 06/10/2017 Hematologic disorder. Follow s with hemat. unclear dx. no treatment just observation 02/22/2016 Bronchitis, not specified as acute or chronic History of smoking 10-25 pack years 02/22/2016 Mild persistent asthma without complication 10/07 Resolved Problems Problem Noted Date Diagnosed Date Resolved Date Asthma-COPD overlap syndrome 10/26/2015 10/26/2015 Immunizations Immunization Administration Dates Next Due [...] Plan of Treatment Not on file Insurance [facility]
== END 2025-01-20 15:33 | disposition home or self-care (01) ==
LOC: HO.HOS 14:13
PROVIDERS: PCP Internal Medicine
DX: G56.03 Carpal tunnel syndrome, bilateral upper limbs (principal); G56.23 Lesion of ulnar nerve, bilateral upper limbs
CPT/HCPCS: 99024

== ENCOUNTER → 2025-01-20 14:13 | Outpatient (BNVA) | payer MEDICARE, SELFPAY | PROVIDERS: PCP Internal Medicine | DX: Z01.818 Encounter for other preprocedural examination (principal); G56.03 Carpal tunnel syndrome, bilateral upper limbs; G56.23 Lesion of ulnar nerve, bilateral upper limbs | CPT/HCPCS: 99212 ==

== ENCOUNTER 2025-02-04 05:39 | Day surgery (SDC) | payer MEDICARE, SELFPAY ==
--- OUTSIDE RECORDS SUMMARY | 2023-11-28 10:15 | XMS_ITS ---
Author Organization [facility] [address] Address [address] [place] [address] Care Team Providers Care Project Finance Analyst Name Role Phone MILADIS SIMMONS Unavailable [phone] REASON FOR VISIT labs Medications Medication SIG (Take, Route, Frequency, Duration) Notes Start Date End Date Status Clotrimazole-Betamethasone 1-0.05 % 1 application Externally Twice a day; Duration: 30 days Active Trelegy Ellipta 200-62.5-25 MCG/ACT 1 puff Inhalation Once a day; Duration: 30 days Active Encounters Encounter Location Date Provider Diagnosis [facility] [address] [place] [id number] 11/28/2023 MILADIS SIMMONS Annual physical exam Z00.00 [...] software and direct typing Please excuse inadvertent mixer operator hot metal or typing errors, or uncorrected word substitutions Although every attempt has been made by the provider to proofread this document, occasional misspellings and typographical errors may still be present Due to the previous pandemic, and the use of personal protective equipment (PPE) This may decrease voice recognition accuracy Inadvertent mixer operator hot metal errors may occur 11/28/2023 Encounter for screen [...] software and direct typing Please excuse inadvertent mixer operator hot metal or typing errors, or uncorrected word substitutions Although every attempt has been made by the provider to proofread this document, occasional misspellings and typographical errors may still be present Due to the previous pandemic, and the use of personal protective equipment (PPE) This may decrease voice recognition accuracy Inadvertent mixer operator hot metal errors may occur 11/28/2023 Encounter for screen [...] software and direct typing Please excuse inadvertent mixer operator hot metal or typing errors, or uncorrected word substitutions Although every attempt has been made by the provider to proofread this document, occasional misspellings and typographical errors may still be present Due to the previous pandemic, and the use of personal protective equipment (PPE) This may decrease voice recognition accuracy Inadvertent mixer operator hot metal errors may occur 11/28/2023 Chronic obstructive asthma [...] software and direct typing Please excuse inadvertent mixer operator hot metal or typing errors, or uncorrected word substitutions Although every attempt has been made by the provider to proofread this document, occasional misspellings and typographical errors may still be present Due to the previous pandemic, and the use of personal protective equipment (PPE) This may decrease voice recognition accuracy Inadvertent mixer operator hot metal errors may occur 11/28/2023 Hypogammaglobulinemi a (ICD-10 [...] software and direct typing Please excuse inadvertent mixer operator hot metal or typing errors, or uncorrected word substitutions Although every attempt has been made by the provider to proofread this document, occasional misspellings and typographical errors may still be present Due to the previous pandemic, and the use of personal protective equipment (PPE) This may decrease voice recognition accuracy Inadvertent mixer operator hot metal errors may occur 11/28/2023 Primary osteoarthrit is [...] software and direct typing Please excuse inadvertent mixer operator hot metal or typing errors, or uncorrected word substitutions Although every attempt has been made by the provider to proofread this document, occasional misspellings and typographical errors may still be present Due to the previous pandemic, and the use of personal protective equipment (PPE) This may decrease voice recognition accuracy Inadvertent mixer operator hot metal errors may occur 11/28/2023 Vitiligo (ICD-10 - [...] software and direct typing Please excuse inadvertent mixer operator hot metal or typing errors, or uncorrected word substitutions Although every attempt has been made by the provider to proofread this document, occasional misspellings and typographical errors may still be present Due to the previous pandemic, and the use of personal protective equipment (PPE) This may decrease voice recognition accuracy Inadvertent mixer operator hot metal errors may occur 11/28/2023 Hyperlipidemia, unspecified (ICD-10 [...] software and direct typing Please excuse inadvertent mixer operator hot metal or typing errors, or uncorrected word substitutions Although every attempt has been made by the provider to proofread this document, occasional misspellings and typographical errors may still be present Due to the previous pandemic, and the use of personal protective equipment (PPE) This may decrease voice recognition accuracy Inadvertent mixer operator hot metal errors may occur 11/28/2023 Pre-diabetes (ICD-10 - [...] software and direct typing Please excuse inadvertent mixer operator hot metal or typing errors, or uncorrected word substitutions Although every attempt has been made by the provider to proofread this document, occasional misspellings and typographical errors may still be present Due to the previous pandemic, and the use of personal protective equipment (PPE) This may decrease voice recognition accuracy Inadvertent mixer operator hot metal errors may occur 11/28/2023 Iron deficiency (ICD -10 - E61.1) Patient is here for [facility] Chronic conditions are stable MCV is [...] software and direct typing Please excuse inadvertent mixer operator hot metal or typing errors, or uncorrected word substitutions Although every attempt has been made by the provider to proofread this document, occasional misspellings and typographical errors may still be present Due to the previous pandemic, and the use of personal protective equipment (PPE) This may decrease voice recognition accuracy Inadvertent mixer operator hot metal errors may occur Plan Of Treatment Medication Medication Name Sig Start Date Stop Date Notes Clotrimazole-Betamethasone 1-0.05 % 1 application Externally Twice a day; Duration: 30 days Trelegy Ellipta 200-62.5-25 MCG/ACT 1 puff Inhalation Once a day; Duration: 30 days Progress Notes * Magdaleno WRAYDOB:1955 (69 yo M)Acc No.[id number]:11/28/2023 Progress Note Patient: Magdaleno RUTHERFORD Provider: Rojelio SIMMONS NP :1955 A ge:68 Y S ex:Male Date:11/28/2023 Address:[address] [place] [address] Subjective: * Chief Complaints: * 1 . Labs. * HPI: C onstitutional: Patient is here for a Medicare wellness visit. Complete paperwork was reviewed and updated and has been filed and scan. Age appropriate screening measures reviewed Depression screen completed. Alcohol audit screening completed. Obesity screen completed. Cardiovascular risk stratification screen completed. Cognition assessed Fall risk assessed Discussed healthcare proxy. Discussed [place] order for life sustaining treatment, Comprehensive fasting [...] Dr Yu @ infusion center Followed by center rep Dr. Mart breathing is stable Comprehensive labs are reviewed, 10/2022 Cholesterol 121, LDL 68, triglycerides 126, HDL 32 Electrolytes renal function and LFTs are stable CBC is mostly stable MCV is a little low at 78.6 Low iron studies Platelets are 131 Urinalysis unremarkable Hemoglobin A1c of 5.2 TSH of 0.78 Vitamin D of 74 Acute hospitalizations: He was admitted to [facility] on 05/16/22 with acute hypoxemic respiratory failure [...] hospital notes as well as medication reconciliation [facility] paperwork, back to full duty as of [...] deficiency - E61.1 Patient is here for [facility] Chronic conditions are stable MCV is [...] software and direct typing Please excuse inadvertent mixer operator hot metal or typing errors, or uncorrected word substitutions Although every attempt has been made by the provider to proofread this document, occasional misspellings and typographical errors may still be present Due to the previous pandemic, and the use of personal protective equipment (PPE) This may decrease voice recognition accuracy Inadvertent mixer operator hot metal errors may occur. Plan: * Treatment: * Images: Billing Information: * Visit Code: * Procedure Codes: Care Plan Details* * Electronic signature of KATE SIMMONS on 12/18/2024 at 10:20 AM EDT Sign off status: Pending * Provider: Rojelio SIMMONS NP Date: 0 11/28/2023 Generated for Zohreh wray/Samson/eTseamussmitting on: 0 12/18/2024 10:20 AM EDT History and Physical Notes * [...] Fall risk assessed Discussed healthcare proxy. Discussed [place] order for life sustaining treatment, Comprehensive fasting [...] Dr Yu @ infusion center Followed by center rep Dr. Mart breathing is stable Comprehensive labs are reviewed, 10/2022 Cholesterol 121, LDL 68, triglycerides 126, HDL 32 Electrolytes renal function and LFTs are stable CBC is mostly stable MCV is a little low at 78.6 Low iron studies Platelets are 131 Urinalysis unremarkable Hemoglobin A1c of 5.2 TSH of 0.78 Vitamin D of 74 Acute hospitalizations: He was admitted to [facility] on 05/16/22 with acute hypoxemic respiratory failure [...] General Examination GENERAL APPEARANCE: in no ac wily distress, well developed, well nourished HEAD: normocephalic, [...]
--- OUTSIDE RECORDS SUMMARY | 2024-12-18 10:20 | XMS_ITS | Clinical Summary ---
Author Organization [facility] Address [address] [place] [address] Care Team Providers Care Core Manager Name Role Phone Mimi Mandel MD Primary Care Provider [phone] Allergies No known active allergies Medications Medication [...] Assessment 2022 COVID-19 Vaccine (3 - season) 2024 08/06/2020, 07/15/2020 Influenza Vaccine (#1) 2024 4, 04/13/2019, 04/13/2019, Additional history exists DTap / [...] age to complete this topic Care Teams Core Manager Relationship Specialty Start Date End Date Mimi Mandel MD [address] [place] [phone] PCP - General Internal Medicine 01/04/22
--- OUTSIDE RECORDS SUMMARY | 2024-12-18 10:20 | XMS_ITS | Patient Health Record ---
Author Organization [facility] Address [address] [place] [address] Care Team Providers Care Clinic Office Assistant Name Role Phone MILADIS SIMMONS Unavailable [phone] Allergies No Known Allergies Reason For Referral [...] Status W/U Status Risk Notes Problem Hyperlipidemia (56233745) Hyperlipidemia, unspecified (E78.5) Active confirmed Problem Vitiligo (39865063) Vitiligo (L80) Active confi rmed Problem Hypothyroidism (06561001) Hypothyroidism, unspecified type (E03.9) Active confirmed Problem Vitamin D deficiency (42342260) Vitamin D deficiency (E55.9) Active confirmed Problem Annual health maintenance examination (65179006) Encounter for annual health examination (Z00.00) Active confirmed Problem Leukopenia (55276002) Leukopenia , unspecified type (D72.819) Active confirmed Problem Osteoarthritis of kn ee (910556082) Primary osteoarthritis of left knee (M17.12) Active confirmed Problem Chronic obstructive asthma co-occurrent with acute exacerbation of asthma (disorder) (25895137615195846) Chronic obstructive asthma (J44.9) Active confirmed Problem Hypogammaglobulinemi a (551008411) Hypogammaglobulinemi a (D80.1) Active confirmed Plan Of Treatment Pending Test Test Name Order Date 25OH VITAMIN D 07/23/2022 25OH VITAMIN D 05/09/2023 CBC (COMPLETE BLOOD COUNT) 07/23/2022 CBC (COMPLETE BLOOD COUNT) 05/09/2023 COMPREHENSIVE METABOLIC PANEL 05/09/2023 COMPREHENSIVE METABOLIC PANEL 07/23/2022 FERRITIN 11/26/2022 HEMOGLOBIN A1C 05/09/2023 HEMOGLOBIN A1C 07/23/2022 IRON & TIBC 11/26/2022 LIPID PANEL 05/09/2023 LIPID PANEL 07/23/2022 PSA, SCREEN 05/09/2023 TRANSFERRIN 11/26/2022 TSH 07/23/2022 [...] Medicare Part B J14 [address] [place] [address] [id number] Magdaleno Pritchard Self - patient is the insured 3 Medical (General) History Medical History History ICD Code asthma Surgical History Surgery Date(Month/Year) Lung Repair 2019 Hospitalization History Reason Date(Month/Year) D/C Daniela re: 05/2022 discharged for Lung issues August 2021 pneumonia 2021
--- OUTSIDE RECORDS SUMMARY | 2024-12-18 10:20 | XMS_ITS | Clinical Summary ---
Author Organization [facility] Address [address] [place] [address] Phone Care Team Providers Care Freelance Court Stenographer Name Role Phone Pcp, Unknown Primary Care [...] Medical Devices Not on file Insurance [employer] [facility] Care Teams Freelance Court Stenographer Relationship Specialty Start Date End Date Pcp, Unknown PCP - General 01/25/23 Additional Source Comments The information contained in this document represents components of the legal health record. It is not the complete legal health record.[facility]
--- OUTSIDE RECORDS SUMMARY | 2024-12-18 10:20 | XMS_ITS | Clinical Summary ---
Author Organization [facility] Address [address] [place] [address] Care Team Providers Care Paradichlorobenzene Machine Operator Name Role Phone Unavailable Primary Care Provider [...] nebulizer accessoriesIndic ations:Mild intermittent asthma without complication ([facility]) Dx:J45.20 1 Device 0 6 Active nebulizer and compressorIndica tions:Mild intermittent asthma without complication ([facility]) Dx:J45.20 1 Each 0 6 Active mometasone-formo terol (DULERA) 100-5 mcg/actuation inhalerIndicatio ns:Asthma-COPD overlap syndrome ([facility]) Inhale 2 Puffs into the lungs 2 [...] base)/3 mL nebulizer solutionIndicati ons:Asthma-COPD overlap syndrome ([facility]) Take 3 mL by nebulization 4 (four) [...] 250-50 mcg/dose diskus inhalerIndicatio ns:Asthma-COPD overlap syndrome ([facility]) Inhale 1 Puff into the lungs 2 (two) times daily 60 Each 2 8 Active predniSONE (DELTASONE) 20 mg tabletIndication s:Moderate persistent asthma with exacerbation ([facility]),Acute bronchitis, unspecified organism Take 1 Tab by mouth once daily 4 Tab 8 Active azithromycin (ZITHROMAX Z-SERENA) 250 mg tabletIndication s:Moderate persistent asthma with exacerbation ([facility]),Acute bronchitis, unspecified organism Take 2 today then 1 daily for 4 days dispense 6 tablets 6 Tab 8 Active Active Problems Problem Noted Date Diagnosed Date Vitiligo 06/10/2017 Urine frequency 06/10/2017 Hematologic disorder. Follow s with hemat. unclear dx. no treatment just observation 02/22/2016 Bronchitis, not specified as acute or chronic History of smoking 10-25 pack years 02/22/2016 Mild persistent asthma without complication ([facility]) 10/26/2015 Resolved Problems Problem Noted Date Diagnosed Date Resolved Date Asthma-COPD overlap syndrome ([facility]) 6 10/26/2015 Immunizations Immunization Administration Dates Next [...] Plan of Treatment Not on file Insurance [facility]
--- OUTSIDE RECORDS SUMMARY | 2024-12-18 10:20 | XMS_ITS | Clinical Summary ---
Author Organization [facility] Address [address] [place] [address] Phone Care Team Providers Care Sterile Products Processor Name Role Phone Lv Basurto MD Primary Care Provider [phone] Allergies No known active allergies Medications amitriptyline [...] 10/07/2024 COPD (chronic obstructive pu lmonary disease) ([facility] V24, [facility] V28) 04/04/2024 BPH (benign prostatic hyperplasia) 04/04/2024 Pneumonia of right lower lobe due to infectious organism 04/04/2024 Anemia 12/16/2019 Hypogammaglobulinemia ([facility] V24) 07/30/2018 Vitiligo 06/10/2017 Mild persistent asthma without complication 10/07 Resolved Problems Problem Noted Date Diagnosed Date Resolved Date Acute respiratory failure wi th hypoxia ([facility] V24, [facility] V28) 04/04/2024 04/08/2024 Encounters Date Type Department Care Team Description 11/09/2024 10:00 AM EDT Office Visit [facility] Hematology Oncology [address] [place] [phone] Maia Cole MD Microcytic anemia (Primary Dx); Hypogammaglobulinem ia ([facility] [place] V24) 11/05/2024 1:15 PM EDT Treatment [facility] Occupational Therapy [address] [phone] Shelley Donato OT Bilateral hand pain (Primary Dx) 11/02/2024 1:15 PM EDT Treatment [facility] Occupational Therapy [address] [place] [phone] Shelley Donato OT Bilateral hand pain (Primary Dx) 10/29/2024 1:15 PM EDT Treatment [facility] Occupational Therapy [address] [phone] Shelley Donato OT Bilateral hand pain (Primary Dx) 10/27/2024 1:15 PM EDT Treatment [facility] Occupational Therapy [address] [phone] Shelley Donato OT Bilateral hand pain (Primary Dx) 10/21/2024 1:15 PM EDT Treatment [facility] Occupational Therapy [address] [phone] Shelley Donato OT Bilateral hand pain (Primary Dx) 10/19/2024 1:15 PM EDT Treatment [facility] Occupational Therapy [address] [phone] Shelley Donato OT Bilateral hand pain (Primary Dx) 10/14/2024 3:00 PM EDT Treatment [facility] Occupational Therapy [address] [phone] Shelley Donato OT Bilateral hand pain (Primary Dx) 10/07/2024 12:30 PM EDT Evaluation [facility] Occupational Therapy [address] [place] [phone] Shelley Donato OT Bilateral hand pain; Arthritis pain, hand; Closed nondisplaced fracture of neck of fifth metacarpal bone of right hand, initial encounter 10/07/2024 Plan of Care Documentation [facility] Occupational Therapy [address] [place] [phone] 09/28/2024 3:05 PM EDT - 09/28/2024 11:59 PM EDT Hospital Encounter [address] [phone] Bilateral hand pain Discharge Disposition: Home or Self Care 09/28/2024 3:05 PM EDT - 09/28/2024 11:59 PM EDT Hospital Encounter [address] [phone] Right shoulder pain, unspecified chronicity Discharge Disposition: Home or Self Care 09/28/2024 3:00 PM EDT Office Visit Adult Medicine [address] [phone] Alexandra Kay, MAPPING SPECIALIST Bilateral hand pain (Primary Dx); Right shoulder pain, unspecified chronicity; Post herpetic neuralgia; Arthritis pain, hand; Closed nondisplaced fracture of neck of fifth metacarpal bone of right hand, initial encounter 09/25/2024 2:30 PM EDT Office Visit Pulmonolgy [address] [place] [phone] Sarina Mart MD Mild persistent asthma without complication (Primary Dx); Pneumonia of right lower lobe due to infectious organism; Hypogammaglobulinem ia ([facility] V24) from Last 3 Months Immunizations Name Administration Dates Next Due Pfizer SARS-CoV-2 COVID-19, mRNA, LNP-S, preservative free 08/06/2020,07/15/2020 Surgical History Surgery Date Site/Laterality Comments BYPASS GRAFT Left PROCEDURE: [place] AMPUTATION TOE METATARSOPHALANGEAL JOINT; COMMENT: 2nd, traumatic Medical History Medical History Date Comments Asthma DX:Asthma Traumatic amputation of one toe ([facility] V24) DX:Traumatic amputation of o ne toe ([facility]); COMMENT: left 2nd digit Anemia 07/09/2018 DX:Anemia; COMME NT: Was f/b hematolgy in past ? dx Vitiligo 07/30/2018 DX:Vitiligo Hypogammaglobulinemia ([facility] V24) 07/30/2018 DX:Hypogammaglobulinemia (HCC) Empyema lung ([facility] V24, [facility] V28) 0 DX:Empyema lung (HCC) Family History [...] 3:30 PM EDT Office Visit Adult Medicine [address] [phone] Lv Basurto MD [address] [place] [address] 01/20/2025 10:00 AM EDT Consult Adult Medicine [address] [phone] Lv Basurto MD [address] [place] [address] 03/29/2025 2:15 PM EST Office Visit Pulmonol - [facility] [address] [phone] Sarina Mart MD [address] [phone] Health Maintenance Due Date Last Done Comments [...] 03/17/2022 Social Influencers of Health Screening 03/17/2022 Depression Screening 04/08/2024 COVID-19 Vaccine ( - season) 2024 02/28/2021, 08/06/2020, 07/15/2020 Influenza Vaccine (#1) 2024 , 12/29/2021, 01/06/2020, [...] Routine 11/02/2024 10:12 AM EDT Hypogammaglobulinem ia ([facility] V24) Anemia, unspecified type FERRITIN Routine 11/02/2024 10:12 AM EDT Anemia, unspecified IRON AND TIBC Routine 11/02/2024 10:12 AM EDT Anemia, unspecified HAPTOGLOBIN Routine 11/02/2024 10:12 AM EDT Hypogammaglobulinem ia ([facility] V24) Anemia, unspecified type RETICULOCYTE COUNT Routine 11/02/2024 10 :12 AM EDT Hypogammaglobulinem ia ([facility] V24) Anemia, unspecified type HEMOGLOBIN ELECTROPHORESIS Routine 11/02/2024 10:12 AM EDT Hypogammaglobulinem ia ([facility] V24) Anemia, unspecified type CBC AND DIFFERENTIAL Routine 11/02/2024 10:12 AM EDT Hypogammaglobulinem ia ([facility] V24) Anemia, unspecified type XR HAND 3+ VIEWS BILAT Routine 3:22 PM EDT Bilateral hand pain XR SHOULDER 2+ VIEWS RIGHT Routine 09/28/2024 3:22 PM EDT Right shoulder pain, unspecified chronicity from Last 3 Months Results * (ABNORMAL) CBC auto differential (11/02/2024 10:12 AM EDT) WBC 6.8 4.8 - 10.8 K/[facility] LAB HEMETOLOGY METHOD 11/02/2024 12:15 PM EDT [facility] RBC 4.90 4.50 - 5.50 M/mcL LAB HEMETOLOGY METHOD 11/02/2024 12:15 PM EDT [facility] Hemoglobin 11.8(L) 13.5 - 17.5 g/dL LAB HEMETOLOGY METHOD 11/02/2024 12:15 PM EDT [facility] Hematocrit 38.4(L) 42.0 - 54.0 % LAB HEMETOLOGY METHOD [facility] MCV 78.9(L) 79.0 - 98.0 FL LAB HEMETOLOGY METHOD 11/02/2024 12:15 PM EDT [facility] MCH 24.2(L) 27.0 - 32.0 pcg LAB HEMETOLOGY METHOD 11/02[facility]2024 [facility] MCHC 30.7(L) 32.0 - 37.0 g/dL LAB HEMETOLOGY METHOD 11/02/2024 12:[address] [facility] RDW 13.4 11.0 - 15.0 % LAB HEMETOLOGY METHOD 11/02[facility]2024 [facility] Platelets 158 130 - 400 K/mcL LAB HEMETOLOGY METHOD 11/02/2024 [facility] MPV 10.7 7.0 - 11.0 FL LAB HEMETOLOGY METHOD 11/02/2024 12:[address] [facility] NRBC 0.0 <1.0 % LAB HEMETOLOGY METHOD 11/02/2024 [facility] NRBC Absolute 0.00 <0.10 K/mcL LAB HEMETOLOGY METHOD 11/02/2024 12:[facility] Neutrophils Relative 80.0 % LAB HEMETOLOGY METHOD 11/02/2024 12:[facility] Lymphocytes Relative 14.4 % LAB HEMETOLOGY METHOD 11/02[facility]2024 [facility] Monocytes Relative 4.0 % LAB HEMETOLOGY METHOD 11/02/2024 12:15 PM EDT [facility] Eosinophils Relative 0.3 % LAB HEMETOLOGY METHOD 11/02/2024 12:15 PM EDT [facility] Basophils Relative 0.1 % LAB HEMETOLOGY METHOD 11/02/2024 12:15 PM EDT [facility] Immature Granulocytes Relative 1.2 % LAB HEMETOLOGY METHOD 11/02/2024 12:15 PM EDT [facility] Neutrophils Absolute 5.45 1.50 - 7.00 K/mcL LAB HEMETOLOGY METHOD 11/02/2024 12:15 PM EDT [facility] Lymphocytes Absolute 0.98(L) 1.00 - 5.00 K/mcL LAB HEMETOLOGY METHOD 11/02/2024 12:15 PM EDT [facility] Monocytes Absolute 0.27 0.20 - 1.00 K/mcL LAB HEMETOLOGY METHOD 11/02/2024 12:15 PM EDT [facility] Eosinophils Absolute 0.02 0.00 - 0.50 K/mcL LAB HEMETOLOGY METHOD 11/02/2024 12:15 PM EDT [facility] Basophils Absolute 0.01 0.00 - 0.20 K/mcL LAB HEMETOLOGY METHOD 11/02/2024 12:15 PM EDT [facility] Immature Granulocytes Absolute 0.08(H) 0.00 - 0.03 K/mcL LAB HEMETOLOGY METHOD 11/02/2024 12:15 PM EDT [facility] Blood Venous blood specimen / Unknown Venipuncture / Unknown 11/02/2024 10:12 AM EDT 11/02/2024 11:15 AM EDT us Maia Cole MD LAB BLOOD ORDERABLES Final R esult [facility] [address] [place] [address], * Hemoglobin electrophoresis (11/02/2024 10:12 AM EDT) Hemoglobin A1 97.6 96.5 - 97.8 % 11/04/2024 12:33 PM EDT [facility] Hemoglobin A2 2.4 2.2 - 3.2 % 11/04/2024 12:33 PM EDT [facility] Hemoglobin F 0.0 <2.0 % 11/04/2024 12:33 PM EDT [facility] Hemoglobin S 0.0 0.0 % 11/04/2024 12:33 PM EDT [facility] Hemoglobin C 0.0 0.0 % 11/04/2024 12:33 PM EDT [facility] Interpretation See Below 11/04/2024 12:33 PM EDT [facility] Comment: No abnormal hemoglobin variants seen on hemoglobin electrophoresis. Test performed at [facility], [address], [place] [address] Lucy Gifford MD, PhD - Chief Concierge Blood Venous blood specimen / Unknown Venipuncture / Unknown 11/02/2024 10:12 AM EDT 11/02/2024 11:15 AM EDT us Maia Cole MD LAB BLOOD ORDERABLES Final R esult [facility] [address] [place] [address] * Iron and TIBC (11/02/2024 10:12 AM EDT) Iron 93 50 - 160 mcg/dL LAB CHEMISTRY METHOD 11/02/2024 12:45 PM EDT [facility] TIBC 278 250 - 450 mcg/dL LAB CHEMISTRY METHOD 11/02/2024 12:45 PM EDT [facility] Iron Saturation 33 20 - 50 % LAB CHEMISTRY METHOD 11/02/2024 12:45 PM EDT [facility] Blood Venous blood specimen / Unknown Venipuncture / Unknown 11/02/2024 10:12 AM EDT 11/02/2024 11:14 AM EDT us Maia Cole MD LAB BLOOD ORDERABLES Final R esult [facility] [address] [place] [address], [place] [phone] * (ABNORMAL) Reticulocyte count (11/02/2024 10:12 AM EDT) Retic Ct Abs 0.110(H) 0.030 - 0.090 M/mcL LAB HEMETOLOGY METHOD 11/02/2024 12:15 PM EDT [facility] Retic Ct Pct 2.2(H) 0.7 - 1.7 % LAB HEMETOLOGY METHOD 11/02/2024 12:15 PM EDT [facility] Immature Retic Fract 17.5(H) 2.3 - 15.9 % LAB HEMETOLOGY METHOD 11/02/2024 12:15 PM EDT [facility] Reticulocyte Hemoglobin 25.9(L) >29.0 pcg LAB HEMETOLOGY METHOD 11/02/2024 12:15 PM EDT [facility] Blood Venous blood specimen / Unknown Venipuncture / Unknown 11/02/2024 10:12 AM EDT 11/02/2024 11:15 AM EDT us Maia Cole MD LAB BLOOD ORDERABLES Final R esult [facility] [address] [place] [address], [place] [phone] * Haptoglobin (11/02/2024 10:12 AM EDT) Haptoglobin 80 16 - 200 mg/dL LAB CHEMISTRY METHOD 11/02/2024 12:29 PM EDT [facility] Blood Venous blood specimen / Unknown Venipuncture / Unknown 11/02/2024 10:12 AM EDT 11/02/2024 11:14 AM EDT Maia Cole MD LAB BLOOD ORDERABLES Final R esult Performing Organization Address [facility] Co de Phone Number [facility] [address] [place] [address], [place] [phone] * Ferritin (11/02/2024 10:12 AM EDT) Ferritin 38 26 - 388 ng/mL LAB CHEMISTRY METHOD 11/02/2024 12:29 PM EDT [facility] Blood Venous blood specimen / Unknown Venipuncture / Unknown 11/02/2024 10:12 AM EDT 11/02/2024 11:14 AM EDT Maia Cole MD LAB BLOOD ORDERABLES Final R esult Performing Organization Address [facility] de Phone Number [facility] [address] [place] [address], [place] [phone] * XR Hand 3+ Views bilat (09/28/2024 [...] Signed Date: 09/28/2024 17:57 ET Workstation ID: [id number] Transcribed By: Self Edit Transcribed Date: 09/28/2024 [...] Signed Date: 09/28/2024 17:57 ET Workstation ID: [id number] Transcribed By: Self Edit Transcribed Date: 09/28/2024 17:52 ET us Alexandra Kay MAPPING SPECIALIST IMG XR PROCEDURES Final Resul t * [...] Signed Date: 09/28/2024 18:01 ET Workstation ID: [id number] Transcribed By: Self Edit Transcribed Date: 09/28/2024 [...] Signed Date: 09/28/2024 18:01 ET Workstation ID: [id number] Transcribed By: Self Edit Transcribed Date: 09/28/2024 17:59 ET us Alexandra Kay MAPPING SPECIALIST IMG XR PROCEDURES Final Resul t from Last 3 Months Insurance [employer] MEDIC[employer] Advance Directives Documents on File Type Date Recorded Patient Surveillance Camera Technician Expl anation Health Care Decision (hx) 04/14/2019 [...] currently active code status orders. Care Teams Sterile Products Processor Relationship Specialty Start Date End Date Lv Basurto MD PCP - General Internal Medicine 01/24/24
[2025-01-21 13:03] VITALS: BP 128/76; PULSE 86; RESP 16; O2SAT 96; BMI 25.6
--- NOTE | 2025-01-22 11:49 | HO.ANESPROP2 ---
Documented by User: Krystal Ace NP 02/01/25 14:11 HPI - Anesthesia Eval Consult details Narrative: 69yo M for Right Cubital Tunnel Release, Carpal Tunnel Release, 02/04/25 Medically optimized per PCP [facility] Active Problems Active Problems: All Active Problems Cubital tunnel syndrome, bilateral (Acute) Bilateral carpal tunnel syndrome (Acute) Carpal tunnel syndrome (Acute) Paresthesia of both hands (Acute) Right wrist pain (Acute) Left wrist pain (Acute) Past Medical History Medical History (Updated 01/21/25 @ 13:23 by Georgette Kulkarni RN) Hx of immunodeficiency History of amputation of toe (1986) BPH (benign prostatic hyperplasia) Asthma Hx of solitary pulmonary nodule Mild persistent asthma in adult without complication Vitiligo Hypogammaglobulinemia History of pneumonia (04/04/24) Anemia COPD (chronic obstructive pulmonary disease) Bilateral hand pain Surgical History Surgical History (Updated 01/21/25 @ 13:15 by Georgette Kulkarni RN) Hx of colonoscopy History of lung surgery (04/2019) Social History Social History (Updated 01/21/25 @ 13:18 by Georgette Kulkarni RN) Household Members: Spouse Housing: House Patient Tobacco Use Status: Former Tobacco user Tobacco use type: Cigarette Smoked in Last 30 Days: No Use of substances other than those prescribed or required for medical reasons: No Have you been hit, kicked, punched, or otherwise hurt by someone within the past year? If so, by whom?: No Are you DNR?: No Advance Directives: No Advance Directives Information Provided: Yes Advance Directives on File: No Poor oral hygiene: No Meds Allergies Allergy/AdvReac Type Severity Reaction Status Date / Time No Known Allergies Allergy Verified 01/20/25 15:03 Home Medications ?Medication ?Instructions ?Recorded ?Confirmed ?Last Taken ?Type gabapentin 300 mg capsule 300 mg PO BEDTIME 10/30/24 01/20/25 02/02/25 History albuterol sulfate 90 mcg/actuation 2 puff inhalation Q4-6H PRN 01/20/25 01/20/25 02/04/25 History aerosol inhaler Shortness Of Breath Or Wheezing amitriptyline 10 mg tablet 10 mg PO BEDTIME 01/20/25 01/20/25 02/02/25 History fluticasone 100 mcg-salmeterol 50 1 inh inhalation BID 01/20/25 01/20/25 02/04/25 History mcg/dose blistr powdr for inhalation (Wixela Inhub) tamsulosin 0.4 mg capsule 0.4 mg PO BEDTIME 01/20/25 01/20/25 02/02/25 History Exam Height,Weight and Vital Signs: Height 5 ft 8 in Weight 76.43 kg Last Vital Signs Pulse 86 01/21/25 13:03 Resp 16 01/21/25 13:03 BP 128/76 01/21/25 13:03 Pulse Ox 96 01/21/25 13:03 O2 Del Method Room Air 01/21/25 13:03 Pertinent Lab Results Pertinent Lab Results: BMP and CBC 12/2024 from [facility] except mild low H&H Narrative Narrative: EKG 01/20/25 SR LAFB Assessment and Plan Assessment Anesthesia Assessment: Chart Reviewed Documented by User: Yao Mora MD 02/04/25 07:30 PMFSH Past Medical History Medical History (Updated 01/21/25 @ 13:23 by Georgette Kulkarni, RN) Hx of immunodeficiency History of amputation of toe (1986) BPH (benign prostatic hyperplasia) Asthma Hx of solitary pulmonary nodule Mild persistent asthma in adult without complication Vitiligo Hypogammaglobulinemia History of pneumonia (04/04/24) Anemia COPD (chronic obstructive pulmonary disease) Bilateral hand pain Family History Family history of problems with anesthesia: No Surgical History Surgical History (Updated 01/21/25 @ 13:15 by Georgette Kulkarni, RN) Hx of colonoscopy History of lung surgery (04/2019) History of Problems with Anesthesia: No Social History Social History (Updated 01/21/25 @ 13:18 by Georgette Kulkarni, RN) Household Members: Spouse Housing: House Patient Tobacco Use Status: Former Tobacco user Tobacco use type: Cigarette Smoked in Last 30 Days: No Use of substances other than those prescribed or required for medical reasons: No Have you been hit, kicked, punched, or otherwise hurt by someone within the past year? If so, by whom?: No Are you DNR?: No Advance Directives: No Advance Directives Information Provided: Yes Advance Directives on File: No Poor oral hygiene: No Meds Allergies Allergy/AdvReac Type Severity Reaction Status Date / Time No Known Allergies Allergy Verified 01/20/25 15:03 Home Medications ?Medication ?Instructions ?Recorded ?Confirmed ?Last Taken ?Type gabapentin 300 mg capsule 300 mg PO BEDTIME 10/30/24 01/20/25 02/02/25 History albuterol sulfate 90 mcg/actuation 2 puff inhalation Q4-6H PRN 01/20/25 01/20/25 02/04/25 History aerosol inhaler Shortness Of Breath Or Wheezing amitriptyline 10 mg tablet 10 mg PO BEDTIME 01/20/25 01/20/25 02/02/25 History fluticasone 100 mcg-salmeterol 50 1 inh inhalation BID 01/20/25 01/20/25 02/04/25 History mcg/dose blistr powdr for inhalation (Wixela Inhub) tamsulosin 0.4 mg capsule 0.4 mg PO BEDTIME 01/20/25 01/20/25 02/02/25 History Exam Narrative Narrative: oEKG 01/20/25 SR LAFB Airway Mallampati Class: I TM Dist: >3cm Neck ROM: Full Loose/Missing/Broken Teeth: No Heart: ok Lungs: CTA. Sat 94-96% on RA. Assessment and Plan Assessment Anesthesia Assessment: Anesthesia Plan Discussed Final Anesthetic Review Family History of Problems with Anesthesia: No History of Problems with Anesthesia: No NPO: Yes ASA Class: III Final Preanesthetic Review: No Changes in Pt Med Stat, Meds/Allgs Chart Reviewed, Consent Obtained/Reviewed and Anes Risks/Benef Reviewed Patient Risk: Intermediate Procedure Risk: Low Anesthetic Plan Anesthetic Plan: GA and Agree w/ Assess. and Plan Disposition: Standard PACU
[2025-02-04 05:41] VITALS: BP 145/79; PULSE 78; RESP 16; TEMP 36.9; O2SAT 95; BMI 24.9
[2025-02-04] MEDS: Lactated Ringers 1,000 ML 100 ML IVCONT (06:08)
--- NOTE | 2025-02-04 07:43 | P.OP_ITS ---
Operative Note Operative Note Date of Service: 02/04/25 Narrative: Operative Note Narrative: Preop diagnosis: 1. Right Cubital tunnel syndrome 2. Right carpal tunnel syndrome Postop diagnosis: Same Procedure: 1. Right Cubital Tunnel Release 2. Right carpal tunnel release Surgeon: Ca Land MD Jewel Diameter Gauger: Bon MEJÍA Anesthesia: General Anesthesia Findings: Thickening and fibrosis about the ulnar nerve at the cubital tunnel, with narrowing as it passed between the 2 heads of the FCU. Implants: none Tourniquet time: 32 minutes EBL: 5.0 ml Specimen: none Drains: None Complications: None Disposition: Brought to the recovery room in stable condition Plan: Follow-up in 10-14 days for wound check, and suture removal Indications: The patient is 69 years old with right carpal tunnel syndrome and right cubital tunnel syndrome . The risks and benefits of operative treatment, including but not limited to risk of damage to blood vessels, nerves, tendons, infection, recurrence, persistent pain or numbness, incomplete resolution of preoperative symptoms, or need for further surgery were discussed with the patient and they wished to proceed with surgery. Procedure: Once consent was obtained patient was brought back to the operating suite and placed in the operating table in a supine position. Perioperative antibiotics and anesthesia was administered by the anesthesia team. The limb was prepped and draped in a standard surgical fashion, and a sterile tourniquet applied to the proximal aspect of the right upper extremity. The limb was elevated exsanguinated with Esmarch bandage and the tourniquet inflated to 250 mm of mercury for a total tourniquet time of 32 minutes. Once assured that we had a good block, a 2.0 cm longitudinal incision was made centered over the right carpal tunnel. The incision was made through the skin to the subcutaneous tissues using a #15 blade. Dissection was made down to the level of the transverse carpal ligament with care being taken to protect the palmar cutaneous nerve. Once the transverse carpal ligament was clearly visualized, a longitudinal incision was made in the transverse carpal ligament 1st using a #15 blade, then using tenotomy scissors under direct visualization. Care was taken to look for and protect the motor branch of the median nerve when seen in this area. Once satisfied with our carpal tunnel release the wound was irrigated with normal saline. A 6 cm gently curved but longitudinally oriented incision was made centered over the cubital tunnel of the right upper extremity. Incision was made through the skin to the subcutaneous tissues using a # 15 Blade. I then dissected down to the level of the medial epicondyle and the cubital tunnel using tenotomy scissors. Care was taken to protect the medial antebrachial cutaneous nerve. The ulnar nerve was identified just posterior to the medial intermuscular septum. The ulnar nerve was released in a proximal to distal direction using tenotomy in iris scissors while directly visualizing and protecting the ulnar nerve. Thickening and fibrosis was appreciated about the ulnar nerve as it passed through the cubital tunnel. The ulnar nerve was assessed as I passed the elbow through full flexion and extension and was found to remain stable within its groove. At this point the tourniquet was deflated and hemostasis obtained with a brief period of local pressure and bipolar electrocautery. The wound was copiously irrigated with normal saline. The subcutaneous layer was closed with 4-0 Vicryl suture, and the skin edges were reapproximated with 5-0 nylon suture. The wound was infiltrated with some 1% Marcaine with epinephrine for postop pain control and sterile dressings were applied. The patient appears to have tolerated the procedure well and with no complications. All digits were well vascularized at the conclusion of the case.
--- NOTE | 2025-02-04 07:43 | MHC.SHP ---
Pre-Procedural Eval Section A - 24 Hr Update-Section A only Date of Service: 02/04/25 The patient is an INPATIENT: No Changes since office visit: No Cold of Flu in the past 2 weeks, No New Medical Problems, No Changes in Medication and No Patient answered all questions The patient has been examined within 24 hours of the surgical procedure. The History & Physical has been completed within 30 days and I have reviewed it.: Yes Section B - Complete if H&P > 30 days Chief Complaint: lesion of ulnar,carpal tunnel Allergies: Allergies Allergy/AdvReac Type Severity Reaction Status Date / Time No Known Allergies Allergy Verified 01/20/25 15:03 Plan I have reviewed the history and physical and performed a pertinent physical examination on my patient. No changes have occurred unless specified. Time Spent With Patient Time: Total time managing care of this patient today ____ minutes.
[2025-02-04 09:12] VITALS: BP 115/61; PULSE 79; RESP 17; TEMP 36.3; O2SAT 94
[2025-02-04 09:17] VITALS: BP 99/56; PULSE 78; RESP 17; O2SAT 94
[2025-02-04 09:22] VITALS: BP 105/59; PULSE 71; RESP 15; O2SAT 92
[2025-02-04 09:27] VITALS: BP 105/60; PULSE 69; RESP 14; O2SAT 92
[2025-02-04 09:42] VITALS: BP 124/76; PULSE 66; RESP 16; TEMP 36.2; O2SAT 96
== END 2025-02-04 10:29 | disposition home or self-care (01) ==
PROVIDERS: PCP Internal Medicine; Visit Provider Orthopaedic Surgery
PROC: (CPT 64718; principal; 2025-02-04 07:30)
PROC: (CPT 64721; 2025-02-04 07:30)
DX: G56.01 Carpal tunnel syndrome, right upper limb (principal); G56.21 Lesion of ulnar nerve, right upper limb; M79.641 Pain in right hand; M65.841 Other synovitis and tenosynovitis, right hand; J44.9 Chronic obstructive pulmonary disease, unspecified; J45.30 Mild persistent asthma, uncomplicated; D64.9 Anemia, unspecified; D80.1 Nonfamilial hypogammaglobulinemia; Z87.01 Personal history of pneumonia (recurrent); Z79.51 Long term (current) use of inhaled steroids; Z79.899 Other long term (current) drug therapy; Z87.891 Personal history of nicotine dependence
CPT/HCPCS: 64718; 64721; 87070; 87102; 87116; 87205; 87206; 88304; J0131; J0690; J2003; J2004; J2704; J2795; J3010

== ENCOUNTER → 2025-02-04 05:39 | Outpatient (BNV) | payer MEDICARE, SELFPAY | PROVIDERS: PCP Internal Medicine; Visit Provider Orthopaedic Surgery | DX: G56.01 Carpal tunnel syndrome, right upper limb (principal); G56.21 Lesion of ulnar nerve, right upper limb | CPT/HCPCS: 64718; 64721 ==

== ENCOUNTER 2025-02-17 11:08 | Outpatient (AMB) | payer MEDICARE, SELFPAY ==
--- NOTE | 2025-02-17 11:24 | MHC.OFFVIS ---
Vital Signs 02/17/25 11:36 Height 5 ft 8 in Weight 163 lb BMI 24.8 Intake Visit Reasons: PO RT cubital/CTR 02/04/25 AR Intake Note: Magdaleno is a 69 year old ambidextrous male who presents today for a Post-Operative Visit status post Right Cubital & Carpal Tunnel Release performed by Dr. Land on 02/04/25. Patient reports he is doing well. He denies any numbness, tingling, or finger locking. He expresses concern for some stiffness. Patient has discontinued pain medications at this time. Sutures removed and steri strips applied.a Allergies No Known Allergies Allergy (Verified 02/17/25 11:35) HPI HPI PO RT cubital/CTR 02/04/25 AR: Details: Magdaleno is a 69 year old ambidextrous male who presents today for a Post-Operative Visit status post Right Cubital & Carpal Tunnel Release performed by Dr. Land on 02/04/25. Patient reports he is doing well. He denies any numbness, tingling, or finger locking. He expresses concern for some stiffness, as he is unable to bring the hand to a full fist without assistance from the other hand. Patient has discontinued pain medications at this time. Sutures removed and steri strips applied. [facility] Medical History (Updated 01/21/25 @ 13:23 by Georgette Kulkarni RN) Hx of immunodeficiency History of amputation of toe (1986) BPH (benign prostatic hyperplasia) Asthma Hx of solitary pulmonary nodule Mild persistent asthma in adult without complication Vitiligo Hypogammaglobulinemia History of pneumonia (04/04/24) Anemia COPD (chronic obstructive pulmonary disease) Bilateral hand pain Surgical History (Updated 01/21/25 @ 13:15 by Georgette Kulkarni RN) Hx of colonoscopy History of lung surgery (04/2019) Social History (Updated 01/21/25 @ 13:18 by Georgette Kulkarni RN) Household Members: Spouse Housing: House Are you a primary medicare coordinator to a significant other at home: No Do you presently have visiting nurse or other home services: No 75 years or older and lives alone: No Patient Tobacco Use Status: Former Tobacco user Tobacco use type: Cigarette Review of Systems Const All systems reviewed & are unremarkable except as noted in HPI and below Physical Exam Vital Signs: BMI result Body Mass Index 24.8 Extrem Other: Patient is alert, oriented, and in no acute distress. Neuro: Normal sensation of the tips of all digits of the right hand at this time Vascular: Cap refill brisk Pain: No tenderness to palpation about the incision sites on volar right wrist or medial right elbow Minimal discomfort with range of motion of the digits of the right hand ROM: With encouragement, patient is able to make a closed fist and extend all digits fully Skin: No lacerations or abrasions. General: No ecchymosis, erythema, or evidence of infection. Psych: Appears grossly normal Affect normal Attitude cooperative Assessment & Plan Assessment & Plan (1) Bilateral carpal tunnel syndrome: Code(s): G56.03 - Carpal tunnel syndrome, bilateral upper limbs Category: Medical (2) Cubital tunnel syndrome, bilateral: Code(s): G56.23 - Lesion of ulnar nerve, bilateral upper limbs Category: Medical Plan 1. Status post right cubital tunnel release 2. Status post right carpal tunnel release With good symptom resolution postoperatively Patient appears to be recovering well postoperatively Patient is educated about the typical recovery course No under water attempts one-week, 2 lb weight limit x2 weeks Patient appears to be recovering very well, and requires no further acute postop care at this time 3. Left cubital tunnel syndrome 4. Left carpal tunnel syndrome At this time, I have informed the patient that we need to wait a few weeks before being able to book left cubital and carpal tunnel releases due to anesthesia concerns Patient is booked an appointment in 6 weeks to discuss left cubital and carpal tunnel releases Patient understands this in his amenable to this plan Follow-up in 6 weeks Coding Level of Care Code Global (05596) Diagnoses Bilateral carpal tunnel syndrome G56.03 Cubital tunnel syndrome, bilateral G56.23
[2025-02-17 11:36] VITALS: BMI 24.8
--- OUTSIDE RECORDS SUMMARY | 2025-02-17 13:46 | XMS_ITS | Clinical Summary ---
Author Organization [facility] Address [address] [place] [address] Care Team Providers Care Appeals Representative Name Role Phone Mimi Mandel MD Primary Care Provider [phone] Allergies No known active allergies Medications Medication [...] age to complete this topic Care Teams Appeals Representative Relationship Specialty Start Date End Date Mimi Mandel MD [address] [place] [id number] PCP - General Internal Medicine 01/04/22
--- OUTSIDE RECORDS SUMMARY | 2025-02-17 13:46 | XMS_ITS | Encounter Summary ---
Author Organization [place] [address] Care Team Providers Care Pre Sales Technical Engineer Name Role Phone Lv Basurto MD Primary Care Provider [phone] Encounter Details Date Type Department Care Team (Late st Contact Info) Description 01/05/2025 Results Follow-Up Adult Medicine [address] [phone] Lv Basurto MD [address] [place] [address] Social History Tobacco Use Types Packs/Day Years Used Date Smoking Tobacco: Former Cigarettes 1 Q uit: 04/08/1993 Smokeless Tobacco: Never Alcohol [...] 2:15 PM EST Office Visit Pulmonology - [place] [address] [place] [phone] Sarina Mart MD [address] [place] [address] 04/20/2025 11:00 AM EST Office Visit Adult Medicine [address] [phone] Lv Basurto MD [address] [place] [address] documented as of this encounter Goals Goal Patient Goal Type Associated Problems Recent Progress Patient-Stated? Author <enter goal here> General On track(2024 2:12 PM EDT) Yes Shelley Donato, OT Note: OT PATIENT GOAL REGAIN FUNCTIONAL USE BOTH HANDS TO RESUME HOUSEWORK RESPONSIBILITIES documented as of this encounter Visit Diagnoses Not on filedocumented in this encounter Care Teams Pre Sales Technical Engineer Relationship Specialty Start Date End Date Lv Basurto MD [address] [place] [address] PCP - General Internal Medicine 01/24/24 documented as of this encounter
--- OUTSIDE RECORDS SUMMARY | 2025-02-17 13:46 | XMS_ITS | Clinical Summary ---
Author Organization [address] [facility] Address [address] [place] [address] Phone Care Team Providers Care Salesperson Sewing Machines Name Role Phone Lv Basurto MD Primary Care Provider Allergies No known active allergies Medications amitriptyline [...] if needed for wheezing. 25.5 g 1 01/06/20 25 026 Active gabapentin (NEURONTIN) 300 mg capsuleIndicat ions:Bilateral hand pain,Post herpetic neuralgia TAKE 1 CAPSULE BY MOUTH EVERYDAY AT BEDTIME 90 capsule 1 01/23/20 25 Active gabapentin (NEURONTIN) 300 mg capsuleIndicat ions:Bilateral hand pain,Post herpetic neuralgia TAKE 1 CAPSULE BY MOUTH EVERYDAY AT BEDTIME 90 capsule 10/27/19 25 025 Discontinued Active Problems Problem Noted Date Diagnosed Date Bilateral hand pain 10/07/2024 COPD (chronic obstructive pu lmonary disease) [place] [place] [facility] [place] 04/04/2024 BPH (benign prostatic hyperplasia) 04/04/2024 Pneumonia of right lower lobe due to infectious organism 04/04/2024 Anemia 12/16/2019 Hypogammaglobulinemia ([facility] [place] 07/30/2018 Vitiligo 06/10/2017 Mild persistent asthma without complication 10/07 Resolved Problems Problem Noted Date Diagnosed Date Resolved Date Acute respiratory failure wi th hypoxia ([facility] [place], [facility] [place]) 04/04/2024 04/08/2024 Encounters Date Type Department Care Team Description 02/05/2025 Telephone Adult Medicine [address] [phone] Lv Basurto MD 01/20/2025 10:00 AM EDT Consult Adult Medicine [address] [phone] Lv Basurto MD Preop examination (Primary Dx); Chronic obstructive pulmonary disease, unspecified COPD type ([facility] [place], [facility] V28); Carpal tunnel syndrome, unspecified laterality 01/05/2025 3:30 PM EDT Office Visit Adult Medicine [address] [phone] Lv Basurto MD Chronic obstructive pulmonary disease, unspecified COPD type ([facility] V24, [facility] V28) (Primary Dx); Need for prophylactic vaccination and inoculation against influenza; Screening for malignant neoplasm of prostate; Benign prostatic hyperplasia without lower urinary tract symptoms; Screening, anemia, deficiency, iron; Screening for diabetes mellitus 01/05/2025 Results Follow-Up Adult Medicine [address] [phone] Lv Basurto MD 01/05/2025 Results Follow-Up Adult Medicine [address] [phone] Lv Basurto MD from Last 3 Months Immunizations Immunization Administration Dates Next Due Influenza trivalent, 0.5mL (Fluad) 65yo and olde r 01/05/2025 Pfizer SARS-CoV-2 COVID-19, mRNA, LNP-S, preservative free 08/06/2020,07/15/2020 Surgical History Surgery Date Site/Laterality Comments BYPASS GRAFT Left PROCEDURE: CT AMPUTATION TOE METATARSOPHALANGEAL JOINT; COMMENT: 2nd, traumatic Medical History Medical History Date Comments Asthma DX:Asthma Traumatic amputation of one toe ([facility] V24) DX:Traumatic amputation of o ne toe ([facility]); COMMENT: left 2nd digit Anemia 07/09/2018 DX:Anemia; COMME NT: Was f/b hematolgy in past ? dx Vitiligo 07/30/2018 DX:Vitiligo Hypogammaglobulinemia ([facility] V24) 07/30/2018 DX:Hypogammaglobulinemia (HCC) Empyema lung ([facility] V24, [facility] V28) 0 DX:Empyema lung (HCC) [...] 1 Q uit: 04/08/1993 Smokeless Tobacco: Never Tobacco [...] 2:15 PM EST Office Visit Pulmonology - [place] [facility] [address] [place] [phone] Sarina Mart MD [address] [place] [phone] 04/20/2025 11:00 AM EST Office Visit Adult Medicine [address] [phone] Lv Basurto MD [address] [place] [phone] Health Maintenance Due Date Last Done Comments [...] 4:10 PM EDT Screening for diabetes mellitus from Last 3 Months Results * Prostate specific antigen screen (01/05/2025 4:10 PM EDT) PSA 2.68 0.00 - 4.00 ng/mL LAB CHEMISTRY METHOD 01/05/2025 8:33 PM EDT [facility] Blood Venous blood specimen / Unknown Venipuncture / Unknown 01/05/2025 4:10 PM EDT 01/05/2025 4:10 PM EDT Narrative [facility] - 01/05/2025 8:33 PM EDT The Siemens Advia Centaur Chemiluminescent Immunoassay is used. Results obtained with different assay methods or kits cannot be used interchangeably. Results cannot be interpreted as absolute evidence of the presence or absence of malignant disease. us Lv Basurto MD LAB BLOOD ORDERABLES Final Resu lt [facility] [address] [place] [address], * (ABNORMAL) CBC auto differential (01/05/2025 4:10 PM EDT) Pathologist [facility] WBC 6.8 4.8 - 10.8 K/mcL LAB HEMETOLOGY METHOD 01/05/2025 6:25 PM EDT [facility] RBC 4.80 4.50 - 5.50 M/mcL LAB HEMETOLOGY METHOD 01/05/2025 6:25 PM EDT [facility] Hemoglobin 11.2(L) 13.5 - 17.5 g/dL LAB HEMETOLOGY METHOD 01/05/2025 6:25 PM EDT [facility] Hematocrit 36.7(L) 42.0 - 54.0 % LAB HEMETOLOGY METHOD 01/05/2025 6:25 PM EDT [facility] MCV 77.1(L) 79.0 - 98.0 FL LAB HEMETOLOGY METHOD 01/05/2025 6:25 PM EDT [facility] MCH 23.5(L) 27.0 - 32.0 pcg LAB HEMETOLOGY METHOD 01/05/2025 6:25 PM EDT [facility] MCHC 30.5(L) 32.0 - 37.0 g/dL LAB HEMETOLOGY METHOD 01/05/2025 6:25 PM EDT [facility] RDW 13.7 11.0 - 15.0 % LAB HEMETOLOGY METHOD 01/05/2025 6:25 PM EDT [facility] Platelets 165 130 - 400 K/mcL LAB HEMETOLOGY METHOD 01/05/2025 6:25 PM EDT [facility] MPV 11.0 7.0 - 11.0 FL LAB HEMETOLOGY METHOD 01/05/2025 6:25 PM EDT [facility] NRBC 0.0 <1.0 % LAB HEMETOLOGY METHOD 01/05/2025 6:25 PM EDT [facility] NRBC Absolute 0.00 <0.10 K/mcL LAB HEMETOLOGY METHOD 01/05/2025 6:25 PM EDT [facility] Neutrophils Relative 69.0 % LAB HEMETOLOGY METHOD 01/05/2025 6:25 PM EDT [facility] Lymphocytes Relative 21.3 % LAB HEMETOLOGY METHOD 01/05/2025 6:25 PM EDT [facility] Monocytes Relative 7.7 % LAB HEMETOLOGY METHOD 01/05/2025 6:25 PM EDT [facility] Eosinophils Relative 1.3 % LAB HEMETOLOGY METHOD 01/05/2025 6:25 PM EDT [facility] Basophils Relative 0.3 % LAB HEMETOLOGY METHOD 01/05/2025 6:25 PM EDT [facility] Immature Granulocytes Relative 0.4 % LAB HEMETOLOGY METHOD 01/05/2025 6:25 PM EDT [facility] Neutrophils Absolute 4.66 1.50 - 7.00 K/mcL LAB HEMETOLOGY METHOD 01/05/2025 6:25 PM EDT [facility] Lymphocytes Absolute 1.44 1.00 - 5.00 K/mcL LAB HEMETOLOGY METHOD 01/05/2025 6:25 PM EDT [facility] Monocytes Absolute 0.52 0.20 - 1.00 K/mcL LAB HEMETOLOGY METHOD 01/05/2025 6:25 PM EDT [facility] Eosinophils Absolute 0.09 0.00 - 0.50 K/mcL LAB HEMETOLOGY METHOD 01/05/2025 6:25 PM EDT [facility] Basophils Absolute 0.02 0.00 - 0.20 K/mcL LAB HEMETOLOGY METHOD 01/05/2025 6:25 PM EDT [facility] Immature Granulocytes Absolute 0.03 0.00 - 0.03 K/mcL LAB HEMETOLOGY METHOD 01/05/2025 6:25 PM EDT [facility] Blood Venous blood specimen / Unknown Venipuncture / Unknown 01/05/2025 4:10 PM EDT 01/05/2025 4:10 PM EDT us Lv Basurto MD LAB BLOOD ORDERABLES Final Resu lt [facility] [address] [place] [address], * (ABNORMAL) Basic metabolic panel (01/05/2025 4:10 PM EDT) Sodium 141 133 - 145 mmol/L LAB CHEMISTRY METHOD 01/05/2025 7:30 PM [facility] Potassium 3.6 3.5 - 5.5 mmol/L LAB CHEMISTRY METHOD 01/05/2025 7:30 PM [facility] Chloride 108 96 - 110 mmol/L LAB CHEMISTRY METHOD 01/05/2025 7:30 PM [facility] CO2 25 21 - 32 mmol/L LAB CHEMISTRY METHOD 01/05/2025 7:30 PM [facility] Anion Gap 8 3 - 11 LAB CHEMISTRY METHOD 01/05/2025 7:30 PM [facility] Glucose 106(H) 70 - 100 mg/dL LAB CHEMISTRY METHOD 01/05/2025 7:30 PM [facility] BUN 16 5 - 25 mg/dL LAB CHEMISTRY METHOD 01/05/2025 7:30 PM [facility] Creatinine 0.92 0.70 - 1.30 mg/dL LAB CHEMISTRY METHOD 01/05/2025 7:30 PM [facility] eGFR 91 >=60 mL/min/1. 73m2 LAB CHEMISTRY METHOD 01/05/2025 7:30 PM [facility] Comment:Calculation based on the Chronic Kidney Disease Epidemiology Collaboration (CKD-EPI) equation refit without adjustment for race. 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 Care Teams Salesperson Sewing Machines Relationship Specialty Start Date End Date Lv Basurto MD [address] [place] [phone] PCP - General Internal Medicine 01/24/24
--- OUTSIDE RECORDS SUMMARY | 2025-02-17 13:46 | XMS_ITS | Patient Health Record ---
Author Organization [facility] Address [address] [place] [address] Care Team Providers Care Road Boss Name Role Phone MILADIS SIMMONS Unavailable [phone] Allergies No Known Allergies Reason For Referral No Information Medications Medication SIG (Take, Route, Frequency, Duration) Notes Start Date End Date Status Gabapentin 100 MG Capsule 2 capsule Oral ly twice daily; Duration: 30 days 06/18/2023 Active Clotrimazole-Betamethasone 1-0.05 % Cream 1 application Externally Twice a day; Duration: 30 days Active Albuterol Sulfate HFA 108 (90 Base) MCG/ACT Aerosol Solution INHALE 1 PUFF INTO THE LUNGS EVERY 4 HOURS NEEDED FOR 30 DAYS; Duration: 30 Active valACYclovir HCl 500 MG Tablet 1 tablet Orally Once a day Active Ibuprofen 600 MG Tablet 1 tablet with fo od or milk as needed Orally Three times a day Active Trelegy Ellipta 200-62.5-25 MCG/ACT Aerosol Powder Breath Activated 1 puff Inhalation Once a day; Duration: 30 days Active Immunizations Vaccine Route Administration Date Status Comme nts Influenza, high dose seasonal IM Intramuscular 05/09/2023 Administered Social History Tobacco Use: Social History Observation Description Date Details (start date - stop date) Former Smoker NA - NA Social History Drugs/Alcohol: Social Info Question Answer Notes Alcohol Screen (Audit-C) Did you have a drink containing alcohol in the past year? Yes How often did you have a drink containing alcohol in the past year? 2 to 4 times a month (2 points) How many drinks did you have on a typical day when you were drinking in the past year? 1 or 2 drinks (0 point) How often did you have 6 or more drinks on one occasion in the past year? Less than monthly (1 point) Points 3 Interpretation Negative Drugs Have you used drugs other than those for medical reasons in the past 12 months? No Tobacco Use: Social Info Question Answer Notes Tobacco Use/Smoking Are you a former smoker How long has it been since you last smoked? > 10 years Additional Details Category Social Info Options Details Drugs/Alcohol: Do you drink alcohol? Soci ally Problems Problem Type SNOMED Code ICD Code Onset Dates Problem Status W/U Status Risk Notes Problem Hyperlipidemia (68195225) Hyperlipidemia, unspecified (E78.5) Active confirmed Problem Vitiligo (22921556) Vitiligo (L80) Active confi rmed Problem Hypothyroidism (22070490) Hypothyroidism, unspecified type (E03.9) Active confirmed Problem Vitamin D deficiency (93503250) Vitamin D deficiency (E55.9) Active confirmed Problem Annual health maintenance examination (12170746) Encounter for annual health examination (Z00.00) Active confirmed Problem Leukopenia (82429460) Leukopenia , unspecified type (D72.819) Active confirmed Problem Osteoarthritis of kn ee (803644453) Primary osteoarthritis of left knee (M17.12) Active confirmed Problem Chronic obstructive asthma co-occurrent with acute exacerbation of asthma (disorder) (75669730221163044) Chronic obstructive asthma (J44.9) Active confirmed Problem Hypogammaglobulinemi a (951127479) Hypogammaglobulinemi a (D80.1) Active confirmed Plan Of [...] B J14 [address] [place] [address] [id number] Magdaleno Pritchard Self - patient is the insured 3 Medical (General) History Medical History History ICD Code asthma Surgical History Surgery Date(Month/Year) Lung Repair 2019 Hospitalization History Reason Date(Month/Year) D/C Daniela re: 05/2022 discharged for Lung issues August 2021 pneumonia 2021
--- OUTSIDE RECORDS SUMMARY | 2025-02-17 13:47 | XMS_ITS | Clinical Summary ---
Author Organization [facility] Address [address] [place], [place] [phone] Phone Care Team Providers Care Electromatic Typist Name Role Phone Pcp, Unknown Primary Care [...] patient's age to complete this topic IPV VACCINES Aged Out No longer eligi ble based on patient's age to complete this topic MENINGOCOCCAL VACCINES (ACWY) Aged Out No longer eligible based on patient's age to complete this topic MENINGOCOCCAL VACCINES (B) Aged Out N o longer eligible based on patient's age to complete this topic Medical Devices Not on file Insurance [facility] Care Teams Electromatic Typist Relationship Specialty Start Date End Date Pcp, Unknown PCP - General 01/25/23 Additional Source Comments The information contained in this document represents components of the legal health record. It is not the complete legal health record.[facility]
--- OUTSIDE RECORDS SUMMARY | 2025-02-17 13:47 | XMS_ITS | Clinical Summary ---
Author Organization [facility] Address [address] [place] [address] Care Team Providers Care Plaster Pattern Caster Name Role Phone Unavailable Primary Care Provider [...] Plan of Treatment Not on file Insurance [facility]
--- OUTSIDE RECORDS SUMMARY | 2025-02-17 13:47 | XMS_ITS | Encounter Summary ---
Author Organization [employer] [place] [address] Care Team Providers Care Edge Brusher Name Role Phone Lv Basurto MD Primary Care Provider [phone] Encounter Details Date Type Department Care Team (Late st Contact Info) Description 01/05/2025 Results Follow-Up Adult Medicine [address] [phone] Lv Basurto MD [address] [place] [address] Social History Tobacco Use Types Packs/Day Years [...] 2:15 PM EST Office Visit Pulmonology - [place] [address] [place] [phone] Sarina Mart MD [address] [place] [phone] 04/20/2025 11:00 AM EST Office Visit Adult Medicine [address] [phone] Lv Basurto MD [address] [place] [address] documented as of this encounter Goals Goal Patient Goal Type Associated Problems Recent Progress Patient-Stated? Author <enter goal here> General On track(2024 2:12 PM EDT) Yes Shelley Donato, OT Note: OT PATIENT GOAL REGAIN FUNCTIONAL USE BOTH HANDS TO RESUME HOUSEWORK RESPONSIBILITIES documented as of this encounter Visit Diagnoses Not on filedocumented in this encounter Care Teams Edge Brusher Relationship Specialty Start Date End Date Lv Basurto MD [address] [place] [address] PCP - General Internal Medicine 01/24/24 documented as of this encounter
== END 2025-02-17 11:42 | disposition home or self-care (01) ==
LOC: HO.HOS 11:08
DX: G56.03 Carpal tunnel syndrome, bilateral upper limbs (principal); G56.23 Lesion of ulnar nerve, bilateral upper limbs
CPT/HCPCS: 99024

== ENCOUNTER → 2025-02-17 11:08 | Outpatient (BNVA) | payer MEDICARE, SELFPAY | DX: G56.03 Carpal tunnel syndrome, bilateral upper limbs (principal); G56.23 Lesion of ulnar nerve, bilateral upper limbs; Z98.890 Other specified postprocedural states; Z48.02 Encounter for removal of sutures | CPT/HCPCS: 99212 ==

== ENCOUNTER 2025-03-31 08:19 | Outpatient (AMB) | payer MEDICARE, SELFPAY ==
--- OUTSIDE RECORDS SUMMARY | 2025-03-31 08:22 | XMS_ITS | Clinical Summary ---
Author Organization [facility] Prior to 09/05/[address] [place] [address] Care Team Providers Care Manager Print Name Role Phone Mimi Mandel MD Primary Care Provider [phone] Allergies No known active allergies Medications Medication [...] 2024 08/06/2020, 07/15/2020 Influenza Vaccine (#1) 2024 , [...] age to complete this topic Care Teams Manager Print Relationship Specialty Start Date End Date Mimi Mandel MD [address] [place] [phone] PCP - General Internal Medicine 01/04/22
--- OUTSIDE RECORDS SUMMARY | 2025-03-31 08:22 | XMS_ITS | Patient Health Record ---
Author Organization [facility] [address] Address [address] [place] [address] Care Team Providers Care Support Group Manager Name Role Phone MILADIS SIMMONS Unavailable [phone] Allergies No Known Allergies Reason For Referral [...] Status W/U Status Risk Notes Problem Hyperlipidemia (52187273) Hyperlipidemia, unspecified (E78.5) Active confirmed Problem Vitiligo (82373190) Vitiligo (L80) Active confi rmed Problem Hypothyroidism (47474542) Hypothyroidism, unspecified type (E03.9) Active confirmed Problem Vitamin D deficiency (71076699) Vitamin D deficiency (E55.9) Active confirmed Problem Annual health maintenance examination (57914567) Encounter for annual health examination (Z00.00) Active confirmed Problem Leukopenia (21803744) Leukopenia , unspecified type (D72.819) Active confirmed Problem Osteoarthritis of kn ee (031176942) Primary osteoarthritis of left knee (M17.12) Active confirmed Problem Chronic obstructive asthma co-occurrent with acute exacerbation of asthma (disorder) (04491764724061220) Chronic obstructive asthma (J44.9) Active confirmed Problem Hypogammaglobulinemi a (990582179) Hypogammaglobulinemi a (D80.1) Active confirmed Plan Of [...] B J14 [address] [place] [address] [id number] Magdaleno Pritchard Self - patient is the insured 3 Medical (General) History Medical History History ICD Code asthma Surgical History Surgery Date(Month/Year) Lung Repair 2019 Hospitalization History Reason Date(Month/Year) D/C Daniela re: 05/2022 discharged for Lung issues August 2021 pneumonia 2021
[2025-03-31 08:23] VITALS: BMI 24.8
--- NOTE | 2025-03-31 08:23 | A.OFFVIS_ITS ---
Vital Signs 03/31/25 08:23 Height 5 ft 8 in Weight 163 lb BMI 24.8 Intake Visit Reasons: OV: Discuss Left Cubital/Carpal Release Intake Note: Magdaleno is a 69 year old ambidextrous male who presents today for Follow Up of his Left Carpal & Cubital Tunnel Syndrome. Patient would like to discuss surgical intervention today. Status post Right Carpal & Cubital Tunnel Release, DOS: 02/04/25. IMPRESSION 11/04/24: 1. This is an abnormal study. 2. There is electrodiagnostic evidence for bilateral ulnar neuropathy at the elbow. 3. There is electrodiagnostic evidence for bilateral moderate-severe median neuropathy at the wrist, consistent with Carpal Tunnel Syndrome. 4. There is no electrodiagnostic evidence for brachial plexopathy or cervical radiculopathy. Allergies No Known Allergies Allergy (Verified 03/31/25 08:23) HPI HPI OV: Discuss Left Cubital/Carpal Release: Details: Magdaleno is a 69 year old ambidextrous male who presents today for Follow Up of his Left Carpal & Cubital Tunnel Syndrome. Patient would like to discuss surgical intervention today. Status post Right Carpal & Cubital Tunnel Release, DOS: 02/04/25. Patient reports complete symptomatic resolution on the right side, and would like to move forward with left-sided surgery. Denies new medications, medical diagnoses, or other concerns since previous evaluation. Reports that the numbness and tingling in his left hand is intermittent, but daily, and worse at night IMPRESSION 11/04/24: 1. This is an abnormal study. 2. There is electrodiagnostic evidence for bilateral ulnar neuropathy at the elbow. 3. There is electrodiagnostic evidence for bilateral moderate-severe median neuropathy at the wrist, consistent with Carpal Tunnel Syndrome. 4. There is no electrodiagnostic evidence for brachial plexopathy or cervical radiculopathy. [facility] Medical History (Updated 01/21/25 @ 13:23 by Georgette Kulkarni RN) Hx of immunodeficiency BPH (benign prostatic hyperplasia) Asthma Hx of solitary pulmonary nodule Mild persistent asthma in adult without complication Vitiligo Hypogammaglobulinemia History of pneumonia (04/04/24) Anemia COPD (chronic obstructive pulmonary disease) Bilateral hand pain Surgical History (Updated 01/21/25 @ 13:15 by Georgette Kulkarni RN) History of amputation of toe (1986) Hx of colonoscopy History of lung surgery (04/2019) Social History (Updated 01/21/25 @ 13:18 by Georgette Kulkarni RN) Household Members: Spouse Housing: House Are you a primary personal care service provider to a significant other at home: No Do you presently have visiting nurse or other home services: No 75 years or older and lives alone: No Patient Tobacco Use Status: Former Tobacco user Tobacco use type: Cigarette Review of Systems Const All systems reviewed & are unremarkable except as noted in HPI and below Physical Exam Vital Signs: BMI result Body Mass Index 24.8 Extrem Other: Neuro: Decreased sensation in all digits of the left hand in the office today Normal sensation in the tips of all digits of the right hand today. No thenar or intrinsic wasting. Good APB muscle firing and good finger cross. Vascular: Capillary refill brisk. ROM: Patient can make a fist and extend all their digits. Skin: No lacerations or abrasions noted. General: No ecchymosis. No erythema or evidence of infection. Assessment & Plan Assessment & Plan (1) Cubital tunnel syndrome, bilateral: Code(s): G56.23 - Lesion of ulnar nerve, bilateral upper limbs Category: Medical (2) Bilateral carpal tunnel syndrome: Code(s): G56.03 - Carpal tunnel syndrome, bilateral upper limbs Category: Medical Plan 1. Left carpal tunnel syndrome 2. Left cubital tunnel syndrome Symptoms intermittent, daily, worse at night I educated the patient about the condition. I discussed both operative and nonoperative treatment options. The patient would like to proceed with surgery. The risks and benefits of operative treatment were discussed with the patient and the patient wishes to proceed with surgery. These risks include, but are not limited to, risk of damage to blood vessels, nerves, tendons, infection, recurrence, incomplete relief of preoperative symptoms, persistent pain, possible need for further surgery, and the risks associated with regional blocks and/or anesthesia. Plan is to take the patient to the operating room at some point in the next few weeks for the following procedures: 1. Left cubital tunnel release under general 2. Left carpal tunnel release under general All of the preoperative paperwork including the consent was discussed today. All of the patient's questions were answered in the clinic today. The patient understands that they will be in contact with our certified surgical technologist to discuss scheduling their procedure. Patient denies diabetes, blood thinners, asthma, heart issues, kidney issues, or current smoking. Patient reports stable COPD, known at previous evaluation and surgeries 3. Right carpal tunnel syndrome 4. Right cubital tunnel syndrome With complete symptomatic resolution postoperatively Patient has recovered well from surgery No need for further intervention or assessment at this time Coding Level of Care Code Est Pt Level 4 (14782) Diagnoses Cubital tunnel syndrome, bilateral G56.23 Bilateral carpal tunnel syndrome G56.03
--- OUTSIDE RECORDS SUMMARY | 2025-03-31 08:23 | XMS_ITS | Clinical Summary ---
Author Organization Located Within [facility] Address [address] [place], [place] [id number] Phone Care Team Providers Care Bilingual Kindergarten Teacher Name Role Phone Pcp, Unknown Primary Care [...] topic Medical Devices Not on file [facility] Care Teams Bilingual Kindergarten Teacher Relationship Specialty Start Date End Date Pcp, Unknown PCP - General 01/25/23 Additional Source Comments The information contained in this document represents components of the legal health record. It is not the complete legal health record.Located Within [facility]
== END 2025-03-31 09:10 | disposition home or self-care (01) ==
LOC: HO.HOS 08:20
PROVIDERS: PCP Internal Medicine
DX: G56.23 Lesion of ulnar nerve, bilateral upper limbs (principal); G56.03 Carpal tunnel syndrome, bilateral upper limbs
CPT/HCPCS: 99214

== ENCOUNTER → 2025-03-31 08:19 | Outpatient (BNVA) | payer MEDICARE, SELFPAY | PROVIDERS: PCP Internal Medicine | DX: G56.02 Carpal tunnel syndrome, left upper limb (principal); G56.22 Lesion of ulnar nerve, left upper limb | CPT/HCPCS: 99212 ==